=== PATIENT | female | born 1980 | race Caucasian/White ===

== ENCOUNTER 2023-11-26 19:38 | Outpatient (REF) | payer BC, SELFPAY ==
[2023-12-03 13:10] LABS: Age Gdln ACOG Testing Note (.); HPV Aptima Positive (Negative); IGP, Aptima HPV, rfx 16/18,45 Note (.)
== END 2023-11-26 19:39 | disposition home or self-care (01) ==
LOC: LAB 19:38
PROVIDERS: PCP Family Medicine; Visit Provider Physician Assistant
DX: Z01.419 Encounter for gynecological examination (general) (routine) without abnormal findings (principal)
CPT/HCPCS: 87624; 88175

== ENCOUNTER 2023-12-02 16:09 | Outpatient (OUT) | payer BC, SELFPAY ==
--- OUTSIDE RECORDS SUMMARY | 2023-12-02 16:21 | XMS_ITS | CCD ---
Author Organization [facility]iniSyma Care Team Providers Care Coffee 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 Name Role Phone ANNA, DR Effie GRACIA Admitting Unavailable KAMARIANOAN, DR Effie GRACIA Attending Unavailable KAFTAN, DR Effie GRACIA Primary Care Unavailable KAFTAN, DR Effie GRACIA Consulting Unavailable KARASIK, DR PATEL Admitting Unavailable KARASIK, DR PATEL Attending Unavailable REQUEST, DR HANKS LISTED Primary Care Unavaila ble KARASIK, DR PATEL Consulting Unavailable ROMERO, DR CHILEL Admitting Unavailable ROMERO, DR CHILEL Attending Unavailable REQUEST, DR HANKS LISTED Primary Care Unavaila ble ROMERO, DR CHILEL Consulting Unavailable Nitesh Hills DO Unavailable Nitesh Hills DO Primary Care Provider NIXON AMBRIZ Attending Unavailable NITESH HILLS Referring Unavailable DK, NIXON Huerta Attending Unavailable DK, NIXON Huerta Referring Unavailable DK, NIXON Huerta Attending Unavailable DK, NIXON Huerta Referring Unavailable NITESH HILLS Referring Unavailable DK, NIXON Huerta Attending Unavailable DK, NIXON Huerta Referring Unavailable KALPANA ISSA Attending Unavailable DK, NIXON Huerta Attending Unavailable DK, NIXON Huerta Referring Unavailable Medications Current Medications Medication Drug Class(es) Dates Sig (Normalized) Sig (Original) brexpiprazole 2 mg oral tablet (5 sources) Atypical Antipsychotic Start: 3 End: 4 take 1 tablet by mouth at bedtime Brexpiprazole (Rexulti) 2 MG tablet Indications: Bipolar 2 disorder (CMS/HCC) Take 1 tablet by mouth at bedtime. 30 tablet 5 2022 11/26/2023 Discontinued dextromethorphan hydrobromide 15 mg / guaiFENesin 400 mg / pseudoephedrine hydrochloride 60 mg oral tablet (1 source) alpha-Adrenergic Agonist, Uncompetitive W-jvooyd-E-asparta te Receptor Antagonist, Sigma-1 Agonist Start: 4 take 4 tablets by mouth every twenty-four hours Bnodozyyzjdpbmx-Dc-Oy aifenesin (Capmist Dm) 60-15-400 mg tablet Active 1 TAB PO EVERY 4-6 HOURS April 11, 2023 1:00am do not exceed 4 doses per 24 hrs fluticasone propionate 0.05 mg/actuat metered dose nasal spray (1 source) Corticosteroid Start: 4 take 1 spray(s) nasal route twice daily Fluticasone Propionate (Flonase Allergy Relief) 50 mcg/actuation spray,suspension Active 1 SPRAY INTRANASAL Twice daily April 11, 2023 1:00am administer 1 spray into each nostril methylPREDNISolone 4 mg oral tablet (1 source) Corticosteroid Start: 4 take 1 tablet by mouth once Methylprednisolone (Medrol (Ross)) 4 mg tablets,dose pack Active 0 PO per package directions May 15, 2023 12:00am PO PER PKG DIR for 6 days Completed/Discontinued Medications Medication Drug Class(es) Dates Sig (Normalized) Sig (Original) ARIPiprazole 5 mg oral tablet (2 sources) Atypical Antipsychotic Start: 06-29-2020 End: 04-11-2023 take 5 mg by mouth once daily Aripiprazole Discontinued 5 MG PO Daily June 29, 2020 12:00am April 11, 2023 4:51pm clonazePAM 0.5 mg oral tablet (2 sources) Benzodiazepine Start: 06-29-2020 End: 04-11-2023 take 0.5 mg by mouth twice daily Clonazepam Discontinued 0.5 MG PO Twice daily June 29, 2020 12:00am April 11, 2023 4:50pm phentermine hydrochloride 37.5 mg oral tablet (2 sources) Sympathomimetic Amine Anorectic Start: 06-29-2020 End: 04-11-2023 take 37.5 mg by mouth once daily Phentermine Discontinued 37.5 MG PO Daily June 29, 2020 12:00am April 11, 2023 4:50pm Problems Active Problems Problem Classification Problem Date Documented Date Episodic/Chronic Immunizations and screening for infectious disease (4 sources) Encounter for screening for human papillomavirus (HPV); Translations: [Contact with and (suspected) exposure to other viral communicable diseases] Onset: 09-23-2020 04-11-2023 Episodic Influenza (3 sources) Influenza due to Influenza B virus; Translations: [Influenza due to other identified influenza virus with other respiratory manifestations] 04-11-2023 Episodic Menstrual disorders (2 sources) Menorrhagia; Translations: [Excessive and frequent menstruation with regular cycle] 11-26-2023 Chronic Mood disorders (10 sources) Bipolar II disorder; Translations: [Bipolar II disorder] Onset: 05-18-2020 11-07-2022 Chronic Osteoarthritis (20 sources) Osteoarthritis of left hip joint; Translations: [Unilateral primary osteoarthritis, left hip] Onset: 12-21-2020 11-07-2022 Chronic Other connective tissue disease (5 sources) History of total hip arthroplasty; Translations: [Presence of right artificial hip joint] Onset: 11-07-2022 12-12-2022 Chronic Other connective tissue disease (2 sources) History of repair of hip joint; Translations: [Presence of right artificial hip joint] 11-26-2023 Chronic Other inflammatory condition of skin (1 source) Sunburn of first degree; Translations: [Sunburn] 05-15-2023 Episodic Other nervous system disorders (5 sources) Difficulty walking; Translations: [Difficulty in walking, not elsewhere classified] Onset: 01-30-2021 11-08-2022 Chronic Other nervous system disorders (5 sources) Walking disability; Translations: [Difficulty in walking, not elsewhere classified] Onset: 11-08-2022 11-08-2022 Chronic Other nutritional; endocrine; and metabolic disorders (5 sources) Obese class II; Translations: [Class 2 obesity] Onset: 01-03-2021 11-08-2022 Chronic Other screening for suspected conditions (not mental disorders or infectious disease) (2 sources) Patient encounter status; Translations: [Encounter for screening mammogram for malignant neoplasm of breast] 11-26-2023 Episodic Thyroid disorders (5 sources) Thyroid nodule; Translations: [Nontoxic single thyroid nodule] Onset: 11-07-2022 11-07-2022 Chronic Unclassified (3 sources) CONTACT W/AND (SUSP) EXPOS COVID-19; Translations: [CONTACT W/AND (SUSP) EXPOS COVID-19] Onset: 01-27-2021 Past or Other Problems Problem Classification Problem Date Documented Date Episodic/Chronic Other female genital disorders (4 sources) Other specified noninflammatory disorders of vagina; Translations: [OTH SPEC NONINFLAMMATORY D/O VAGINA] Onset: 08-19-2020 Episodic Other infections; including parasitic (4 sources) Trichomoniasis, unspecified; Translations: [TRICHOMONIASIS UNSPECIFIED] Onset: 09-14-2020 Episodic Other nervous system disorders (5 sources) Loss of taste; Translations: [Parageusia] Onset: 01-10-2021 11-08-2022 Episodic Residual codes; unclassified (5 sources) Insomnia; Translations: [Insomnia, unspecified] Onset: 11-07-2022 11-07-2022 Episodic Unclassified (1 source) CONTACT W/AND (SUSP) EXPOS COVID-19; Translations: [CONTACT W/AND (SUSP) EXPOS COVID-19] Onset: 01-18-2021 Results Test Name Value Interpretation Reference Range Facility XR Hip - right 3 [facility] Result: November 26, 2023 x-rays AP and lateral of the right hip demonstrate a right total hip replacement in good position alignment without signs of loosening fracture or failure. Impression: Stable appearance of right total hip replacement Nhan Ambriz D.O. [facility] Radiology Study observation (narrative) [facility] No Panel InformationOrdered By: Jody Joyner on 04-11-2023 COVID/Influenza Antigen (POC) [facility] Quick Strep (POC) [facility] BI MAMMOGRAM DIAGNOSTIC JENNIFER SYNTHESIS LEFTon 01-29-2023 BI MAMMOGRAM DIAGNOSTIC TOMOSYNTHESIS LEFT This is a summary report. The complete report is available in the patient's medical record. If you cannot access the medical record, please contact the sending organization for a detailed fax or copy. EXAMINATION: BI MAMMOGRAM DIAGNOSTIC TOMOSYNTHESIS LEFT CLINICAL HISTORY: abnormal mammo COMPARISON: Screening mammogram 01/14/2023. RESULT: 3-D tomosynthesis imaging of the bilateral breast(s) was performed. Density: Heterogeneously dense [3] The asymmetries within the medial and lateral left breast on the screening mammogram, are less apparent on the diagnostic views and appear to represent overlapping fibroglandular tissue. No suspicious findings. IMPRESSION: BIRADS 2 - Benign Recommended follow-up: Routine Screening Mamm Board Certified Radiologists. Accredited by the ACR and FDA. MAMMOGRAPHY IS VERY IMPORTANT TO YOUR HEALTH. THE [employer] GUIDELINES RECOMMEND THAT WOMEN 40 YEARS OF AGE AND OLDER SHOULD HAVE A MAMMOGRAM EVERY YEAR. A REMINDER LETTER WILL BE SENT AT THE APPROPRIATE TIME. THIS FACILITY UTILIZES A REMINDER SYSTEM TO ENSURE ALL PATIENTS RECEIVE REMINDER NOTIFICATIONS AT THE APPROPRIATE TIME BASED ON THE RECOMMENDATIONS OF THIS EXAM. THIS INCLUDES REMINDERS FOR ROUTINE SCREENING MAMMOGRAMS, DIAGNOSTIC MAMMOGRAMS IN WHICH THE PATIENT IS ASKED TO RETURN FOR ADDITIONAL VIEWS, OR OTHER BREAST IMAGING INTERVENTIONS WHEN APPROPRIATE. THE PATIENT WILL BE PLACED IN THE APPROPRIATE REMINDER SYSTEM INCLUDING A REMINDER AT THE APPROPRIATE TIME FOR ANY PENDING ADDITIONAL VIEWS. ELECTRONICALLY SIGNED BY: Kenan Alfonso MD Normal Not Available Comment on above: Order Comment: Full- field rolled CC 2D and 3D mammography (and possible ultrasound) of the left breast ? BI MAMMOGRAM SCREENING TOMOS YNTHESIS BILATERALon 01-14-2023 BI MAMMOGRAM SCREENING TOMOSYNTHESIS BILATERAL This is a summary report. The complete report is available in the patient's medical record. If you cannot access the medical record, please contact the sending organization for a detailed fax or copy. EXAM: BI MAMMOGRAM SCREENING TOMOSYNTHESIS BILATERAL DATE: 01/14/2023 9:34 AM CLINICAL HISTORY: screening. COMPARISONS: None available. TECHNIQUE: Routine full-field digital mammograms and 3D breast tomosynthesis of both breasts were obtained. FINDINGS: Both breasts are heterogeneously dense. Two 4 to 5 mm partially obscured asymmetries are noted within the medial and lateral left breast on the cc views, which are not confidently identified on the MLO's. Full-field rolled CC 2D and 3D mammography (and possible ultrasound) of the left breast are suggested. There are no suspicious microcalcifications, or areas of architectural distortion identified. IMPRESSION: BIRADS 0 - Need Additional Imaging Evaluation Follow-up: Additional Imaging Diagnostic Mammogram. Density: Heterogeneously dense [3]. Board Certified Radiologists. Accredited by the ACR and FDA. MAMMOGRAPHY IS VERY IMPORTANT TO YOUR HEALTH. THE CURRENT [employer] GUIDELINES RECOMMENDS ANNUAL MAMMOGRAPHY BEGINNING AT AGE 40. THIS FACILITY UTILIZES A REMINDER SYSTEM TO ENSURE ALL PATIENTS RECEIVE REMINDER NOTIFICATIONS AT THE APPROPRIATE TIME BASED ON THE RECOMMENDATIONS OF THIS EXAM. ELECTRONICALLY SIGNED BY: Frank Adams MD Abnormal Not Available ESTHER Antinuclear Antibodieson 03-02-2021 Antinuclear Abs, IFA Negative Normal . [facility] Comment on above: Order Comment: Healt hcare Worker?: N Result Comment: Nega tive <1:80 Borderline 1:80 Positive >1:80 ICAP nomenclature: AC-0 For more information about Hep-2 cell patterns use ANApatterns.org, the official website for the International Consensus on Antinuclear Antibody (ESTHER) Patterns (ICAP). Performed at: [place] [address] [employer] Teacher: Timoteo Devries PhD, Phone: [phone] Performed By: #### C [address] #### [address] CMV IgG Antibodyon 2 CMV IgG Antibody <0.60 Normal 0.00-0.59 [facility] Comment on above: Order Comment: Healt hcare Worker?: N Result Comment: Nega tive <0.60 Equivocal 0.60 - 0.69 Positive >0.69 Performed By: #### C [address] #### [address] CMV IgM Antibodyon 2 CMV IgM Antibody <30.0 Normal 0.0-29.9 [facility] Comment on above: Order Comment: Healt hcare Worker?: N Result Comment: Nega tive <30.0 Equivocal 30.0 - 34.9 Positive >34.9 A positive result is generally indicative of acute infection, reactivation or persistent IgM production. Performed at: [place] [address] [employer] Teacher: Timoteo Devries PhD, Phone: [phone] Performed By: #### C [address] #### [address] Comprehensive Metabolic Pane madison 03-02-2021 Albumin [Mass/Vol] 3.8 g/dL Normal 3.2-5.5 [facility] Comment on above: Order Comment: Reaso n for Exam Elevated liver enzymes Performed By: #### E BV VCAIGG, RFXHEPCINTERP, CMVIGM, CMVIGG, HEPACUTE, ESTHER, EBV VCAIGM, LC FERRITIN, MITOM2 #### [facility] , #### LIBIA, FE and TIBC, CMP #### [facility] [address] Albumin/Globulin [Mass ratio] 1.2 {ratio} Normal [facility] Comment on above: Order Comment: Reaso n for Exam Elevated liver enzymes Performed By: #### E BV VCAIGG, RFXHEPCINTERP, CMVIGM, CMVIGG, HEPACUTE, ESTHER, EBV VCAIGM, LC FERRITIN, MITOM2 #### [facility] , #### LIBIA, FE and TIBC, CMP #### [address] ALP [Catalytic activity/Vol] 88 U/L Normal 32-92 [facility] Comment on above: Order Comment: Reaso n for Exam Elevated liver enzymes Performed By: #### E BV VCAIGG, RFXHEPCINTERP, CMVIGM, CMVIGG, HEPACUTE, ESTHER, EBV VCAIGM, LC FERRITIN, MITOM2 #### [facility] , #### LIBIA, FE and TIBC, CMP #### [place] [address] [place] ALT [Catalytic activity/Vol] 54 U/L Normal 10-60 [facility] Comment on above: Order Comment: Reaso n for Exam Elevated liver enzymes Performed By: #### E BV VCAIGG, RFXHEPCINTERP, CMVIGM, CMVIGG, HEPACUTE, ESTHER, EBV VCAIGM, LC FERRITIN, MITOM2 #### [facility] , #### LIBIA, FE and TIBC, CMP #### [place] [address] [place] AST [Catalytic activity/Vol] 16 U/L Normal 10-42 [facility] Comment on above: Order Comment: Reaso n for Exam Elevated liver enzymes Performed By: #### E BV VCAIGG, RFXHEPCINTERP, CMVIGM, CMVIGG, HEPACUTE, ESTHER, EBV VCAIGM, LC FERRITIN, MITOM2 #### [facility] , #### LIBIA, FE and TIBC, CMP #### [facility] [address] Bilirubin [Mass/Vol] 0.9 mg/dL Normal 0.3-1.2 [facility] Comment on above: Order Comment: Reaso n for Exam Elevated liver enzymes Performed By: #### E BV VCAIGG, RFXHEPCINTERP, CMVIGM, CMVIGG, HEPACUTE, ESTHER, EBV VCAIGM, LC FERRITIN, MITOM2 #### [facility] , #### LIBIA, FE and TIBC, CMP #### [address] Calcium [Mass/Vol] 9.6 mg/dL Normal 8.2-10.2 [facility] Comment on above: Order Comment: Reaso n for Exam Elevated liver enzymes Performed By: #### E BV VCAIGG, RFXHEPCINTERP, CMVIGM, CMVIGG, HEPACUTE, ESTHER, EBV VCAIGM, LC FERRITIN, MITOM2 #### [facility] , #### LIBIA, FE and TIBC, CMP #### [place] [address] [place] Chloride [Moles/Vol] 104 mmol/L Normal 95-114 [facility] Comment on above: Order Comment: Reaso n for Exam Elevated liver enzymes Performed By: #### E BV VCAIGG, RFXHEPCINTERP, CMVIGM, CMVIGG, HEPACUTE, ESTHER, EBV VCAIGM, LC FERRITIN, MITOM2 #### [facility] , #### LIBIA, FE and TIBC, CMP #### [place] [address] [place] CO2 [Moles/Vol] 26.4 mmol/L Normal 22.0-30.0 [facility] Comment on above: Order Comment: Reaso n for Exam Elevated liver enzymes Performed By: #### E BV VCAIGG, RFXHEPCINTERP, CMVIGM, CMVIGG, HEPACUTE, ESTHER, EBV VCAIGM, LC FERRITIN, MITOM2 #### [facility] , #### LIBIA, FE and TIBC, CMP #### [address] Creatinine [Mass/Vol] 0.74 mg/dL Normal 0.44-1.03 [facility] Comment on above: Order Comment: Reaso n for Exam Elevated liver enzymes Performed By: #### E BV VCAIGG, RFXHEPCINTERP, CMVIGM, CMVIGG, HEPACUTE, ESTHER, EBV VCAIGM, LC FERRITIN, MITOM2 #### [facility] , #### LIBIA, FE and TIBC, CMP #### [address] Estimated GFR ( Erendira > 60 [facility] Comment on above: Order Comment: Reaso n for Exam Elevated liver enzymes Result Comment: GFR estimated reference range: According to KDOQI guidelines, <60 ml/min/1.73m2 is sufficient to diagnose a patient with chronic kidney disease. Performed By: #### E BV VCAIGG, RFXHEPCINTERP, CMVIGM, CMVIGG, HEPACUTE, ESTHER, EBV VCAIGM, LC FERRITIN, MITOM2 #### [facility] , #### LIBIA, FE and TIBC, CMP #### [address] Estimated GFR (Non- Am > 60 [facility] Comment on above: Order Comment: Reaso n for Exam Elevated liver enzymes Performed By: #### E BV VCAIGG, RFXHEPCINTERP, CMVIGM, CMVIGG, HEPACUTE, ESTHER, EBV VCAIGM, LC FERRITIN, MITOM2 #### [facility] , #### LIBIA, FE and TIBC, CMP #### [address] Globulin (S) [Mass/Vol] 3.3 g/dL Normal [facility] Comment on above: Order Comment: Reaso n for Exam Elevated liver enzymes Performed By: #### E BV VCAIGG, RFXHEPCINTERP, CMVIGM, CMVIGG, HEPACUTE, ESTHER, EBV VCAIGM, LC FERRITIN, MITOM2 #### [facility] , #### LIBIA, FE and TIBC, CMP #### [facility] [address] [place] [address] [place] Glucose [Mass/Vol] 91 mg/dL Normal 70-100 [facility] Comment on above: Order Comment: Reaso n for Exam Elevated liver enzymes Result Comment: [facility] Glucose Reference Range is dependent on time and content of last meal. Glucose of more than 200 mg/dL in a nonstressed, ambulatory subject supports the diagnosis of Diabetes Mellitus. ADA recommended reference range Performed By: #### E BV VCAIGG, RFXHEPCINTERP, CMVIGM, CMVIGG, HEPACUTE, ESTHER, EBV VCAIGM, LC FERRITIN, MITOM2 #### [facility] , #### LIBIA, FE and TIBC, CMP #### [facility] [address] [place] [address] [place] Potassium [Moles/Vol] 4.2 mmol/L Normal 3.5-5.1 [facility] Comment on above: Order Comment: Reaso n for Exam Elevated liver enzymes Performed By: #### E BV VCAIGG, RFXHEPCINTERP, CMVIGM, CMVIGG, HEPACUTE, ESTHER, EBV VCAIGM, LC FERRITIN, MITOM2 #### [facility] , #### LIBIA, FE and TIBC, CMP #### [facility] [address] [place] [address] [place] Protein [Mass/Vol] 7.1 g/dL Normal 6.1-7.9 [facility] Comment on above: Order Comment: Reaso n for Exam Elevated liver enzymes Performed By: #### E BV VCAIGG, RFXHEPCINTERP, CMVIGM, CMVIGG, HEPACUTE, ESTHER, EBV VCAIGM, LC FERRITIN, MITOM2 #### [facility] , #### LIBIA, FE and TIBC, CMP #### [facility] [address] Sodium [Moles/Vol] 139 mmol/L Normal 136-146 [facility] Comment on above: Order Comment: Reaso n for Exam Elevated liver enzymes Performed By: #### E BV VCAIGG, RFXHEPCINTERP, CMVIGM, CMVIGG, HEPACUTE, ESTHER, EBV VCAIGM, LC FERRITIN, MITOM2 #### [facility] , #### LIBIA, FE and TIBC, CMP #### [facility] [address] [place] [address] Urea nitrogen [Mass/Vol] 8 mg/dL Low 9- [facility] Comment on above: Order Comment: Reaso n for Exam Elevated liver enzymes Performed By: #### E BV VCAIGG, RFXHEPCINTERP, CMVIGM, CMVIGG, HEPACUTE, ESTHER, EBV VCAIGM, LC FERRITIN, MITOM2 #### [facility] , #### LIBIA, FE and TIBC, CMP #### [facility] [address] [place] [address] EBV Ab VCA, IgGon 03-02-2021 EBV Ab VCA, IgG 75.3 High 0.0-17.9 [facility] Comment on above: Order Comment: Healt hcare Worker?: N Result Comment: Nega tive <18.0 Equivocal 18.0 - 21.9 Positive >21.9 Performed By: #### C OVID-19 [facility] #### [facility] [address] [place] [address] [place] EBV Ab VCA, IgMon 03-02-2021 EBV Ab VCA, IgM <36.0 Normal 0.0-35.9 [facility] Comment on above: Order Comment: Healt hcare Worker?: N Result Comment: Nega tive <36.0 Equivocal 36.0 - 43.9 Positive >43.9 Performed at: - [facility] [id number] [employer] Teacher: Timoteo Devries PhD, Phone: [phone] Performed By: #### C OVID-19 [facility] #### [address] Ferritinon 03-02-2021 Ferritin Sent to Ref Lab Low 11-306.8 [facility] Comment on above: Order Comment: Reaso n for Exam Elevated liver enzymes Result Comment: PERF ORMED BY: [place] [address] PATHOLOGIST SENIOR SALES MANAGER DARIA HELMS M.D. Performed By: #### E BV VCAIGG, RFXHEPCINTERP, CMVIGM, CMVIGG, HEPACUTE, ESTHER, EBV VCAIGM, LC FERRITIN, MITOM2 #### [facility] , #### LIBIA, FE and TIBC, CMP #### [facility] [address] [place] [address] Ferritin ([facility])on 022 Ferritin [Mass/Vol] 126 ng/mL Normal 15-150 [facility] Comment on above: Result Comment: Perf ormed at: - [facility] [address] [id number] [employer] Teacher: Timoteo Devries PhD, Phone: [phone] PERFORMED BY: [place] [address] PATHOLOGIST SENIOR SALES MANAGER DARIA HELMS M.D. Performed By: #### E BV VCAIGG, RFXHEPCINTERP, CMVIGM, CMVIGG, HEPACUTE, ESTHER, EBV VCAIGM, LC FERRITIN, MITOM2 #### [facility] , #### LIBIA, FE and TIBC, CMP #### [facility] [address] [place] [address] Hepatitis Acute Panelon HBsAg Screen Negative Normal Negative [facility] Comment on above: Order Comment: Reaso n for Exam Elevated liver enzymes Performed By: #### E BV VCAIGG, RFXHEPCINTERP, CMVIGM, CMVIGG, HEPACUTE, ESTHER, EBV VCAIGM, LC FERRITIN, MITOM2 #### [facility] , #### LIBIA, FE and TIBC, CMP #### [facility] [address] Hepatitis A Antibody IgM Negative Normal Negative [facility] Comment on above: Order Comment: Reaso n for Exam Elevated liver enzymes Performed By: #### E BV VCAIGG, RFXHEPCINTERP, CMVIGM, CMVIGG, HEPACUTE, ESTHER, EBV VCAIGM, LC FERRITIN, MITOM2 #### [facility] , #### LIBIA, FE and TIBC, CMP #### [facility] [address] [place] [address] Hepatitis B Core Antibody IgM Negative Normal Negative [facility] Comment on above: Order Comment: Reaso n for Exam Elevated liver enzymes Performed By: #### E BV VCAIGG, RFXHEPCINTERP, CMVIGM, CMVIGG, HEPACUTE, ESTHER, EBV VCAIGM, LC FERRITIN, MITOM2 #### [facility] , #### LIBIA, FE and TIBC, CMP #### [facility] [address] [place] [address] Hepatitis C Virus Antibody 0.1 Normal 0.0-0.9 [facility] Comment on above: Order Comment: Reaso n for Exam Elevated liver enzymes Performed By: #### E BV VCAIGG, RFXHEPCINTERP, CMVIGM, CMVIGG, HEPACUTE, ESTHER, EBV VCAIGM, LC FERRITIN, MITOM2 #### [facility] , #### LIBIA, FE and TIBC, CMP #### [facility] [address] [place] [address] Interpretation Hepatitis Con 03-02-2021 Interpretation Hepatitis C Normal . [facility] Comment on above: Order Comment: Healt hcare Worker?: N Result Comment: Nega tive Not infected with HCV, unless recent infection is suspected or other evidence exists to indicate HCV infection. Performed at: - [facility] [id number] [employer] Teacher: Timoteo Devries PhD, Phone: [phone] PERFORMED BY: [place] [address] PATHOLOGIST SENIOR SALES MANAGER DARIA HELMS M.D. Performed By: #### C OVID-19 [facility] #### [address] Iron and TIBC Profileon 01-0 6-2021 % Iron Saturation 19.0 % Low 20-50 [facility] Comment on above: Order Comment: Reaso n for Exam Elevated liver enzymes Performed By: #### E BV VCAIGG, RFXHEPCINTERP, CMVIGM, CMVIGG, HEPACUTE, ESTHER, EBV VCAIGM, LC FERRITIN, MITOM2 #### [facility] , #### LIBIA, FE and TIBC, CMP #### [address] Iron [Mass/Vol] 74 ug/dL Normal 40-150 [facility] Comment on above: Order Comment: Reaso n for Exam Elevated liver enzymes Performed By: #### E BV VCAIGG, RFXHEPCINTERP, CMVIGM, CMVIGG, HEPACUTE, ESTHER, EBV VCAIGM, LC FERRITIN, MITOM2 #### [facility] , #### LIBIA, FE and TIBC, CMP #### [facility] [address] [place] [address] Total Iron Binding Capacity 384 ug/dL Normal 255-450 [facility] Comment on above: Order Comment: Reaso n for Exam Elevated liver enzymes Performed By: #### E BV VCAIGG, RFXHEPCINTERP, CMVIGM, CMVIGG, HEPACUTE, ESTHER, EBV VCAIGM, LC FERRITIN, MITOM2 #### [facility] , #### LIBIA, FE and TIBC, CMP #### [facility] [address] [place] [address] Transferrin [Mass/Vol] 274 mg/dL Normal 180-380 [facility] Comment on above: Order Comment: Reaso n for Exam Elevated liver enzymes Performed By: #### E BV VCAIGG, RFXHEPCINTERP, CMVIGM, CMVIGG, HEPACUTE, ESTHER, EBV VCAIGM, LC FERRITIN, MITOM2 #### [facility] , #### LIBIA, FE and TIBC, CMP #### [facility] [facility] [address] Mitochondrial (M2) Antibodyo n 03-02-2021 Mitochondrial (M2) Antibody <20.0 Normal 0.0-20.0 [facility] Comment on above: Order Comment: Healt hcare Worker?: N Result Comment: Nega tive 0.0 - 20.0 Equivocal 20.1 - 24.9 Positive >24.9 Mitochondrial (M2) Antibodies are found in 90-96% of patients with primary biliary cirrhosis. Performed at: - [facility] [id number] [employer] Machines Teacher: Timoteo Devries PhD, Phone: [phone] Performed By: #### C OVID-19 [facility] #### [facility] [address] US Liveron 03-02-2021 US Liver CLINICAL HISTORY: 40-year-old female with elevated liver function tests.. COMPARISON: None. TECHNIQUE: Biplanar images right upper quadrant were obtained. FINDINGS: Gallbladder is visualized and physiologically distendedNo sign of cholelithiasis or sludge within the gallbladder. No evidence of gallbladder wall thickening. Common bile duct measures 0.39 cm. Liver is normal in size and echogenicity.No focal liver lesion. Liver measures 14.8 cm in length. Increased echogenicity of pancreas parenchyma, suspected fatty infiltration. No focal pancreatic lesion visualized. Tail of pancreas is not well visualized. No free fluid in Morison's pouch. Right kidney measures 9.7 x 4.5 x 3.9. No evidence of hydronephrosis. IMPRESSION: NO EVIDENCE OF CHOLELITHIASIS OR BILE DUCT DILATATION. NO DEFINITE LIVER ABNORMALITY. PANCREAS IS HYPERECHOIC, SUSPECTED FATTY INFILTRATION OF PANCREAS. Report reported and signed by Teresa Blackmon on 03/02/2021 1005 Normal [facility] Complete Blood Count with Au to Diffon 02-21-2021 Basophils (Bld) [#/Vol] 0.05 10*3/uL Normal 0.00-0.20 [facility] Specialist Comment on above: Performed By: #### C BCAD, CMP, TSH reflex FT4 #### [facility] [address] [place], [place] [id number] Basophils/100 WBC (Bld) 0.5 % Normal [facility] Comment on above: Performed By: #### C BCAD, CMP, TSH reflex FT4 #### [facility] [address] [place], [place] [id number] Eosinophils (Bld) [#/Vol] 0.24 10*3/uL Normal 0.02-0.50 [facility] Comment on above: Performed By: #### C BCAD, CMP, TSH reflex FT4 #### [facility] [address] [place], [place] [id number] Eosinophils/100 WBC (Bld) 2.2 % Normal [facility] Comment on above: Performed By: #### C BCAD, CMP, TSH reflex FT4 #### [facility] [address] [place], [place] [id number] Erythrocyte distribution width (RBC) [Ratio] 14.2 % Normal 11.0-15.0 [facility] Comment on above: Performed By: #### C BCAD, CMP, TSH reflex FT4 #### [facility] [address] [place], [place] [id number] Hematocrit (Bld) [Volume fraction] 44.9 % Normal 35.0-47.0 [facility] Comment on above: Performed By: #### C BCAD, CMP, TSH reflex FT4 #### [facility] [address] [place], [place] [id number] Hemoglobin (Bld) [Mass/Vol] 13.2 g/dL Normal 11.6-15.5 [facility] Comment on above: Performed By: #### C BCAD, CMP, TSH reflex FT4 #### [facility] [address] [place], [place] [id number] Lymphocytes (Bld) [#/Vol] 2.0 10*3/uL Normal 0.9-3.9 [facility] Comment on above: Performed By: #### C BCAD, CMP, TSH reflex FT4 #### [facility] [address] [place], [place] [id number] Lymphocytes/100 WBC (Bld) 18.3 % Normal [facility] Specialist Comment on above: Performed By: #### C BCAD, CMP, TSH reflex FT4 #### [facility] [address] [place], [place] [id number] MCH (RBC) [Entitic mass] 29.5 pg Normal 27.0-33.0 [facility] Specialist Comment on above: Performed By: #### C BCAD, CMP, TSH reflex FT4 #### [facility] [address] [place], [place] [id number] MCHC (RBC) [Mass/Vol] 29.4 g/dL Low 32.0-36.0 [facility] Comment on above: Performed By: #### C BCAD, CMP, TSH reflex FT4 #### [facility] [address] [place], [place] [id number] MCV (RBC) [Entitic vol] 100 fL Normal 80-100 [facility] Specialist Comment on above: Performed By: #### C BCAD, CMP, TSH reflex FT4 #### [facility] [address] [place], [place] [id number] Monocytes (Bld) [#/Vol] 0.6 10*3/uL Normal 0.2-0.9 [facility] Special[facility] Comment on above: Performed By: #### C BCAD, CMP, TSH reflex FT4 #### [facility] [address] [place], [place] [id number] Monocytes/100 WBC (Bld) 5.7 % Normal [facility] Specialist Comment on above: Performed By: #### C BCAD, CMP, TSH reflex FT4 #### [facility] [address] [place], [place] [id number] Neutrophils (Bld) [#/Vol] 8.0 10*3/uL High 1.5-7.8 [facility] Special[facility] Comment on above: Performed By: #### C BCAD, CMP, TSH reflex FT4 #### [facility] [address] [place], [place] [id number] Neutrophils/100 WBC (Bld) 72.9 % Normal [facility] Comment on above: Performed By: #### C BCAD, CMP, TSH reflex FT4 #### [facility] [address] [place], [place] [id number] Platelet mean volume (Bld) [Entitic vol] 12.80 fL High 7.50-12.50 [facility] Comment on above: Performed By: #### C BCAD, CMP, TSH reflex FT4 #### [facility] [address] [place], [place] [id number] Platelets (Bld) [#/Vol] 376 10*3/uL Normal 140-400 [facility] Comment on above: Performed By: #### C BCAD, CMP, TSH reflex FT4 #### [facility] [address] [place], [place] [id number] RBC (Bld) [#/Vol] 4.47 10*6/uL Normal 3.90-5.20 [facility] Comment on above: Performed By: #### C BCAD, CMP, TSH reflex FT4 #### [facility] [address] [place], [place] [id number] RDW-SD 52.3 fL High 37.0-50.0 [facility] Comment on above: Performed By: #### C BCAD, CMP, TSH reflex FT4 #### [facility] [address] [place], [place] [id number] WBC (Bld) [#/Vol] 11.0 10*3/uL Normal 3.8-11.0 [facility] Comment on above: Performed By: #### C BCAD, CMP, TSH reflex FT4 #### [facility] [address] [place], [place] [id number] [facility] 02-21-2021 Albumin [Mass/Vol] 4.4 g/dL Normal 3.6-5.1 [facility] Comment on above: Performed By: #### C BCAD, CMP, TSH reflex FT4 #### [facility] [address] [place], [place] [id number] Albumin/Globulin [Mass ratio] 1.3 {ratio} Normal 1.0-2.5 [facility] Specialist Comment on above: Performed By: #### C BCAD, CMP, TSH reflex FT4 #### [facility] [address] [place], [place] [id number] ALP [Catalytic activity/Vol] 193 U/L High 35-119 [facility] Comment on above: Performed By: #### C BCAD, CMP, TSH reflex FT4 #### [facility] [address] [place], [place] [id number] ALT [Catalytic activity/Vol] 756 U/L High 6-33 [facility] Comment on above: Result Comment: 01/25 Female reference range changed. Performed By: #### C BCAD, CMP, TSH reflex FT4 #### [facility] [address] [place], [place] [id number] Anion gap [Moles/Vol] 20 mmol/L Normal 12-20 [facility] Comment on above: Result Comment: Effe ctive 03/02/2019 reference range changed. Performed By: #### C BCAD, CMP, TSH reflex FT4 #### [facility] [address] [place], [place] [id number] AST [Catalytic activity/Vol] 174 U/L High 9-34 [facility] Comment on above: Result Comment: Repe ated to verify. Performed By: #### C BCAD, CMP, TSH reflex FT4 #### [facility] [address] [facility] [place] [id number] Bilirubin [Mass/Vol] 0.31 mg/dL Normal 0.30-1.20 [facility] Comment on above: Performed By: #### C BCAD, CMP, TSH reflex FT4 #### [facility] [address] [facility] [place] [id number] BUN/CREA 15 Ratio Normal 6-22 [facility] Comment on above: Performed By: #### C BCAD, CMP, TSH reflex FT4 #### [facility] [address] [place], [place] [id number] Calcium [Mass/Vol] 10.4 mg/dL High 8.6-10.2 [facility] Comment on above: Performed By: #### C BCAD, CMP, TSH reflex FT4 #### [facility] [address] [place], [place] [id number] Chloride [Moles/Vol] 103 mmol/L Normal 98-107 [facility] Comment on above: Performed By: #### C BCAD, CMP, TSH reflex FT4 #### [facility] [address] [place], [place] [id number] CO2 [Moles/Vol] 23 mmol/L Normal 20-31 [facility] Comment on above: Performed By: #### C BCAD, CMP, TSH reflex FT4 #### [facility] [address] [place], [place] [id number] Creatinine [Mass/Vol] 0.7 mg/dL Normal 0.6-1.4 [facility] Comment on above: Performed By: #### C BCAD, CMP, TSH reflex FT4 #### [facility] [address] [place], [place] [id number] eGFRAA 112 mL/min/1.73m2 Normal >60 [facility] Comment on above: Performed By: #### C BCAD, CMP, TSH reflex FT4 #### [facility] [address] [place], [place] [id number] eGFRNAA 92 mL/min/1.73m2 Normal >60 [facility] Comment on above: Performed By: #### C BCAD, CMP, TSH reflex FT4 #### [facility] [address] [place], [place] [id number] Globulin (S) [Mass/Vol] 3.5 g/dL Normal 1.9-3.7 [facility] Comment on above: Performed By: #### C BCAD, CMP, TSH reflex FT4 #### [facility] [address] [place], [place] [id number] Glucose [Mass/Vol] 100 mg/dL High 65-99 [facility] Comment on above: Result Comment: For FASTING Glucose --- ADA reference ranges: Normal 65-99 mg/dl Prediabetes 100-125 Diabetes >/= 126 Performed By: #### C BCAD, CMP, TSH reflex FT4 #### [facility] [address] [place], [place] [id number] Potassium [Moles/Vol] 4.1 mmol/L Normal 3.5-5.5 [facility] Comment on above: Performed By: #### C BCAD, CMP, TSH reflex FT4 #### [facility] [address] [place], [place] [id number] Protein [Mass/Vol] 7.9 g/dL Normal 6.1-8.1 [facility] Specialist Comment on above: Performed By: #### C BCAD, CMP, TSH reflex FT4 #### [facility] [address] [place], [place] [id number] Sodium [Moles/Vol] 141 mmol/L Normal 135-146 [facility] Specialist Comment on above: Performed By: #### C BCAD, CMP, TSH reflex FT4 #### [facility] [address] [place], [place] [id number] Urea nitrogen [Mass/Vol] 11 mg/dL Normal 7-25 [facility] Specialist Comment on above: Performed By: #### C BCAD, CMP, TSH reflex FT4 #### [facility] [address] [place], [place] [id number] TSH w/ Reflex to Free T4on 04-24-2020 TSH 1.070 uIU/mL Normal 0.400-4.500 [facility] Comment on above: Performed By: #### C BCAD, CMP, TSH reflex FT4 #### [facility] [address] [place], [place] [id number] US Thyroidon 02-21-2021 US Thyroid CLINICAL HISTORY: Abnormal CT. COMPARISON: None available. TECHNIQUE: Ultrasound of the thyroid was performed with a regional survey. Reference: ACR Thyroid, Imaging Recording and Data System (TI-RADS): White paper of the ACR TI-RADS committee. Journal of the [place] [employer] of [employer]: Volume 14, issue 5, July 11 pages 587-595. FINDINGS: The thyroid gland is normal in size and echogenicity, with expected vascularity. An approximately 6.6 x 6.6 x 4.5 mm TR 3 solid predominantly hyperechoic wider than tall smoothly marginated nodule is noted within the right lobe near the isthmus without echogenic foci (TR3). A nearly cystic TR1 nodule is noted within the inferior left thyroid lobe measuring approximately 1.2 x 1.1 x 0.9 cm. No FNA or ultrasound follow-up is suggested. The left lobe measures approximately 4.8 x 1.6 x 1.6 cm, for a volume of approximately 6.5 mL. The right thyroid lobe measures approximately 4.9 x 1.7 x 1.6 cm, for a volume of approximately 7.0 mL. The isthmus measures approximately 1-2 mm in thickness. IMPRESSION: APPROXIMATELY 6.6 MM TR3 RIGHT THYROID LOBE NODULE AND 1.2 CM TR1 LEFT THYROID CYST. NO FNA OR ULTRASOUND FOLLOW-UP IS SUGGESTED. Report reported and signed by Frank Adams on 02/22/2021 0933 Normal [facility] SARS-CoV-2 (COVID-19) RNA GILLES+probe Ql (Unsp spec) Not detected Normal NOT DETECTED [facility] Comment on above: Result Comment: This test is not yet approved or cleared by the [place] FDA. When there are no FDA-approved or cleared tests available, and other criteria are met, FDA can make tests available under an emergency access mechanism called an Emergency Use Authorization (EUA). The EUA for this test is supported by the [place] of Health and Human Service's (HHS's) declaration that circumstances exist to justify the emergency use of in vitro diagnostics for the detection and/or diagnosis of the virus that causes COVID-19. This EUA will remain in effect (meaning this test can be used) for the duration of the COVID-19 declaration justifying emergency of IVDs, unless it is terminated or revoked by FDA (after which the test may no longer be used). When diagnostic testing is negative, the possibility of a false negative should be considered in the context of a patient's recent exposures and the presence of clinical signs and symptoms consistent with SARS-CoV-2. Performed By: #### C VDTB #### [facility] [address] [place] [address] Dr. Shelton Brewster COVID-19 [facility] 01-11-20 21 SARS-CoV-2 (COVID-19) RNA GILLES+probe Ql (Unsp spec) Detected Critically abnormal Not Detected [facility] Comment on above: Order Comment: Reaso n for Exam Loss of taste Healthcare Worker?: N Result Comment: Sulema ents who have a positive COVID-19 test result may now have treatment options. Treatment options are available for patients with mild to moderate symptoms and for hospitalized patients. Visit our website at [email or web address] for resources and information. This nucleic acid amplification test was developed and its performance characteristics determined by [employer]. Nucleic acid amplification tests include RT- PCR and TMA. This test has not been FDA cleared or approved. This test has been authorized by FDA under an Emergency Use Authorization (EUA). This test is only authorized for the duration of time the declaration that circumstances exist justifying the authorization of the emergency use of in vitro diagnostic tests for detection of SARS-CoV-2 virus and/or diagnosis of COVID-19 infection under section 564(b)(1) of the Act, 21 U.S.C. 360bbb-3(b) (1), unless the authorization is terminated or revoked sooner. When diagnostic testing is negative, the possibility of a false negative result should be considered in the context of a patient's recent exposures and the presence of clinical signs and symptoms consistent with COVID-19. An individual without symptoms of COVID-19 and who is not shedding SARS-CoV-2 virus would expect to have a negative (not detected) result in this assay. PERFORMED BY: [facility] [address] [place] [address] PATHOLOGIST SENIOR SALES MANAGER DARIA HELMS M.D. Performed By: #### C ORONAVIRUS #### [facility] , PAP ACOG PANEL 2: 30 to 65on 09-20-2020 . . Normal [facility] Comment on above: Result Comment: Perf ormed at: WB Performed By: #### 4 [id number] #### [facility] [address] [place], [place] [id number] Navi Vega Age Gdln ACOG Testing 30-65 Normal [facility] Comment on above: Performed By: #### 4 [id number] #### [facility] [address] [place] [id number] Navi Vega DIAGNOSIS: Comment Normal [facility] Comment on above: Result Comment: NEGA TIVE FOR INTRAEPITHELIAL LESION OR MALIGNANCY. Performed at: WB Performed By: #### 4 [id number] #### [facility] [address] [place] [address] Navi Vega HPV Aptima Positive Abnormal Negative [facility] Comment on above: Result Comment: This nucleic acid amplification test detects fourteen high-risk HPV types (16,18,31,33,35,39,45,51,52,56,58,59,66,68) without differentiation. Performed at: =G Performed By: #### 4 [id number] #### [facility] [address] [place] [address] Navi Silvia HPV Genotype 16 Negative Normal Negative [facility] Comment on above: Result Comment: Perf ormed at: =G Performed By: #### 4 [id number] #### [facility] [address] [place] [address] Navi Vega HPV Genotype 18,45 Negative Normal Negative [facility] Comment on above: Result Comment: Perf ormed at: =G Performed By: #### 4 [id number] #### [facility] [address] [place] [address] Navi Vega Methodology: CTIM Normal [facility] Comment on above: Result Comment: The Thin Prep(R) Circuit Walker was unable to read this specimen. Therefore a manual review was performed. Performed at: WB Performed By: #### 4 [id number] #### [facility] [address] [place] [address] Navi Silvia Note: Comment Normal [facility] Comment on above: Result Comment: The Pap smear is a screening test designed to aid in the detection of premalignant and malignant conditions of the uterine cervix. It is not a diagnostic procedure and should not be used as the sole means of detecting cervical cancer. Both false-positive and false-negative reports do occur. . Performed at: WB Performed By: #### 4 [id number] #### [facility] [address] [place] [address] Navi Vega Performed by: Comment Normal [facility] Comment on above: Result Comment: Brid get Cramer, Customer Manager (ASCP) Performed at: WB Performed By: #### 4 [id number] #### [facility] [address] [place] [address] Navi Vega Specimen adequacy: Comment Normal [facility] Comment on above: Result Comment: Sati sfactory for evaluation. Endocervical and/or squamous metaplastic cells (endocervical component) are present. Performed at: WB Performed By: #### 4 [id number] #### [facility] [address] [place] [address] Navi Vega VAGINITIS/VAGINOSIS DNA PROB Jesse 09-16-2020 Kathy species Negative Normal Negative [facility] Comment on above: Performed By: #### V AGINT #### [facility] [address] [place] [address] Navi Silvia Gardnerella vaginalis Positive Abnormal Negative [facility] Comment on above: Performed By: #### V AGINT #### [facility] [address] [place] [address] Navi Silvia Trichomonas vaginalis Negative Normal Negative [facility] Comment on above: Performed By: #### V AGINT #### [facility] [address] [place] [address] Navi Vega CHLAMYDIA/GONOCOCCUS GILLES (SW AB/URINE/PAPon 08-22-2020 Chlamydia trachomatis, GILLES Negative Normal Negative [facility] Comment on above: Performed By: #### C T/NGNA #### [facility] [address] [place] [address] Nvai Silvia Neisseria gonorrhoeae, GILLES Negative Normal Negative [facility] Comment on above: Performed By: #### C T/NGNA #### [facility] [address] [place] [address] Navi Silvia VAGINITIS/VAGINOSIS DNA PROB Jesse 08-21-2020 Kathy species Negative Normal Negative [facility] Comment on above: Performed By: #### V AGINT #### [facility] [address] [place] [address] Navi Silvia Gardnerella vaginalis Negative Normal Negative [facility] Comment on above: Performed By: #### V AGINT #### [facility] [address] [place] [address] Navi Vega Trichomonas vaginalis Positive Abnormal Negative [facility] Comment on above: Performed By: #### V AGINT #### [facility] [address] [place] [address] Navi Vega HCG,Urineon 06-29-2020 Beta HCG ( test) Ql (U) Negative Normal [facility] Comment on above: Result Comment: PERF ORMED BY: [place] [address] PATHOLOGIST SENIOR SALES MANAGER DARIA HELMS M.D. Performed By: #### U HCG #### [address] 06-29-2020 L Specimen: [id number] Received: 06/29/20 Status: DORITA Hickman Num: [id number] Spec Type: Surgical Subm Dr: Jayson Benson MD Tissues: A Varicose Vein (L LEG VARICOSE VEINS) Procedures: HE Stain, Gross/Micro L3 Patient Age/Sex Location Account Attending Physician Daysi Medina 39/F [place] [id number] Jayson Benson MD SPEC NUM: [id number] RECD: 06/29/20 STATUS: DORITA HICKMAN NUM: [id number] BENJAMÍN: 06/29/20- [facility] DR: Jayson Benson MD ENTERED: 06/29/[address] [facility] [address]: EMMANUEL TYPE: Surgical DEPT: S ENTERED BY: [id number] RECV BY: [id number] ORDERED: HE Stain, Gross/Micro L3 ORDERED: HE Stain, Gross/Micro L3 Pathological Diagnosis Varicose veins, left leg, phlebectomy: - Consistent with varicose veins Clinical Information Phlebectomy Gross Description Received in formalin labeled with the patient's name, number and varicose veins is a 3.5 x 3.1 x 1 cm aggregate of multiple stewart-pink cylindrical tissue fragments. [employer] sections are submitted in one cassette labeled A1. (SM/JS) Microscopic Description One glass slide with H E stained material has been examined. The microscopic findings support the above pathologic diagnosis. [id number] Specimen: [id number] Received: 06/29/20 Status: DORITA Hickman Num: [id number] Spec Type: Surgical Subm Dr: Jayson Benson MD Tissues: A Varicose Vein (L LEG VARICOSE VEINS) Procedures: HE Stain, Gross/Micro L3 Patient: Daysi Medina [id number] (Continued) Signed (signature on file) Daria Helms MD 06/30/20 1419 Normal [facility] SARS-CoV-2 (COVID-19) RNA GILLES+probe Ql (Unsp spec) Negative Normal Negative [facility] Comment on above: Order Comment: Healt hcare Worker?: N Result Comment: Test ing for SARS-CoV-2 by RT-PCR This test was developed and its performance characteristics determined by [facility] and validated at the [facility]. This test has not been FDA cleared or approved. This test has been authorized by FDA under an Emergency Use Authorization (EUA). This test has been validated in accordance with the FDA's Guidance Document (Policy for Diagnostics Testing in Laboratories Certified to Perform High Complexity Testing under CLIA prior to Emergency Use Authorization for Coronavirus Disease-2019 during the Public Health Emergency) issued on May 28, 2019. This test is only authorized for the duration of time the declaration that circumstances exist justifying the authorization of the emergency use of in vitro diagnostic tests for detection of SARS-CoV-2 virus and/or diagnosis of COVID-19 infection under section 564(b)(1) of the Act, 21 U.S.C. 360bbb-3(b)(1), unless the authorization is terminated or revoked sooner. PERFORMED BY: [place] [address] PATHOLOGIST SENIOR SALES MANAGER DARIA HELMS M.D. Performed By: #### C OVID-19 [facility] #### [address] US venous duplex LE BIon US venous duplex LE BI [facility] [place] [address] [place] [address] Ultrasound Report Signed Patient: Daysi Medina MR#: [id number] [birth year] : 1980 Acct:[id number] Age/Sex: 39 / F ADM Date: 06/14/20 Loc: [facility] Room: Type: [facility] Attending Dr: Jayson Benson MD Ordering Provider: Jayson Benson MD Date of Service: 06/14/20 US/US venous duplex LE BI: [id number] Copies to: Jayson Benson MD Bilateral lower extremity full functional venous duplex examination Indication for study: Painful varicose vein PROCEDURE: Color-flow duplex scanning of B-mode imaging R used to interrogate the deep and superficial venous system of both lower extremities. There is no evidence of deep vein thrombosis in either leg. Bilaterally the common femoral vein, femoral vein, and popliteal vein show good compressibility, color-flow, and augmentation. In the patient's right leg there is greater than 5 seconds of reflux at the saphenofemoral junction emptying into the greater saphenous vein. There is mild unsustained reflux at the junction of the lesser saphenous vein to the popliteal vein. The right greater saphenous vein is mildly dilated at 6 mm below the saphenofemoral junction and remains 5 mm to the mid thigh after which it gives rise to multiple varicosities. These range in size from 4 to 5 mm. The vein is small beyond that point until varicosities rejoin just below the knee were becomes 7 mm. Mild route driver incompetence is noted but none of them are greater than 3 mm. In the patient's left lower extremity there is severe venous valvular incompetence. There is greater than 5 seconds of reflux at the saphenofemoral junction emptying into the greater saphenous vein. There is greater than 5 cm of reflux at the lesser saphenous junction emptying into the lesser saphenous vein from the popliteal vein. The left greater saphenous vein is markedly dilated at 11 mm below the saphenofemoral junction and remains dilated down to the mid calf where it still 7 mm. Multiple varicosities are noted which are 6 to 7 mm in diameter. The lesser saphenous vein is normal in size although varicosities are noted regressed from the vein and around 4 mm in size. US/US venous duplex LE BI IMPRESSION: No evidence for deep vein thrombosis in either leg. There is severe saphenofemoral incompetence of the right saphenofemoral junction for greater than 5 seconds but the vein is mildly dilated. There is severe saphenofemoral femoral incompetence in the left greater saphenous vein with massive dilation of the left greater saphenous vein. There is also severe saphenofemoral incompetence at the juncture of the left lesser saphenous vein to the popliteal vein. Multiple varicosities are noted bilaterally because of this incompetence particularly large in the left side at between 6 and 7 mm diameter. Impression dictated by: Jayson Benson M.D.06/20/2020 8:49 AM Dictation Location: [facility] Tech: Angelina Gorge Transcribed By: MADY 06/20/20848 Dictated By: Jayson Benson MD 06/20/20 0846 Signed By: 06/20/2049 [facility] Vital Signs Date Time Vital Sign Value Performing Clinician Facility 10-01-2024 09:18-0400 Body height 167.6 cm Kalpana FLORIAN Work Phone: [facility] 11-26-2023 09:18-0400 Body mass index (BMI) [Ratio] 35.83 kg/m2 Kalpana FLORIAN Work Phone: [facility] 11-26-2023 09:18-0400 Body weight 100.7 kg Kalpana FLORIAN Work Phone: [facility] 11-26-2023 09:18-0400 Diastolic blood pressure 80 mm[Hg] Kalpana FLORIAN Work Phone: [facility] 11-26-2023 09:18-0400 Systolic blood pressure 124 mm[Hg] Kalpana FLORIAN Work Phone: [facility] 05-15-2023 10:10-0400 Body height 165.1 cm [facility] 05-15-2023 10:10-0400 Body mass index (BMI) [Ratio] 37 kg/m2 [facility] 05-15-2023 10:10-0400 Body temperature 98.4 [degF] [facility] 05-15-2023 10:10-0400 Body weight 100.81 kg [facility] 05-15-2023 10:10-0400 Diastolic blood pressure 90 mm[Hg] [facility] 05-15-2023 10:10-0400 Heart rate 90 /min [facility] 05-15-2023 10:10-0400 Respiratory rate 18 /min [facility] 05-15-2023 10:10-0400 SaO2% (BldA) [Mass fraction] 97 % [facility] 05-15-2023 10:10-0400 Systolic blood pressure 132 mm[Hg] [facility] 04-11-2023 15:47-0500 Body height 165.1 cm [facility] 04-11-2023 15:47-0500 Body mass index (BMI) [Ratio] 36.6 kg/m2 [facility] 04-11-2023 15:47-0500 Body temperature 99.4 [degF] [facility] 04-11-2023 15:47-0500 Body weight 99.79 kg [facility] 04-11-2023 15:47-0500 Heart rate 90 /min [facility] 04-11-2023 15:47-0500 Respiratory rate 16 /min [facility] 04-11-2023 15:47-0500 SaO2% (BldA) [Mass fraction] 98 % [facility] Encounters Encounter Date Encounter Type Care Provider Facility Start: 11-26-2023 End: 11-26-2023 Office outpatient visit 10 minutes Nixon Ambriz DO Work Phone: 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 Start: 11-26-2023 End: 11-26-2023 Periodic preventive med est patient 40-64yrs Kalpana FLORIAN Work Phone: [facility] Comment on above: Breast cancer screen ing by mammogram; Well woman exam with routine gynecological exam; Menorrhagia with regular cycle Start: 11-26-2023 End: 11-26-2023 ambulatory KALPANA ISSA Not Available Start: 05-28-2023 End: 05-28-2023 ambulatory NIXON AMBRIZ Not Available Start: 05-15-2023 End: 05-15-2023 ambulatory [facility] Work Phone: Start: 05-15-2023 End: 05-15-2023 Patient encounter procedure [facility] [place] Work Phone: Start: 04-11-2023 End: 04-11-2023 ambulatory [facility] Work Phone: Start: 04-11-2023 End: 04-11-2023 Patient encounter procedure [facility] [place] Work Phone: Start: 02-26-2023 End: 02-26-2023 ambulatory NIXON AMBRIZ Not Available Start: 02-05-2023 End: 02-05-2023 ambulatory NIXON AMBRIZ Not Available Start: 01-29-2023 End: 01-29-2023 ambulatory NITESH HILLS Not Available Start: 01-15-2023 End: 01-15-2023 ambulatory NIXON AMBRIZ Not Available Start: 01-14-2023 End: 01-14-2023 ambulatory NITESH HILLS Not Available Start: 01-18-2021 End: 01-18-[address] Effie HILLS Facility:[facility] Start: 09-23-2020 Encounter for gynecological examination (general) (routine) without abnormal findings DR GETACHEW ISLAS [facility] Start: 09-14-2020 End: 09-14-[address] GETACHEW ISLAS Facility:[facility] Start: 08-19-2020 End: 08-19-[address] AMANDA WEST Facility:[facility] Procedures Date Procedure Procedure Detail Performing Clinician Start: 11-26-2023 Radex hip unilateral with pelvis 2-3 views Nixon Ambriz DO Work Phone: Start: 04-11-2023 COVID/Influenza Anti gen (POC) Start: 04-11-2023 Quick Strep (POC) Start: 01-29-2023 Mammography Kalpana FLORIAN Work Phone: Plan of Treatment Date Care Activity Detail Author Start: 02-11-2024 End: 02-11-2024 Patient encounter procedure 02/11/2024 2:45 PM EST Office Visit [facility] [address] [place] [id number] Nixon Ambriz DO [address] [facility] [address] [place] [address] [facility] Start: 01-31-2024 End: 01-25-2025 MG Breast - bilateral Screening Bilateral screening mammogram Imaging Routine Breast cancer screening by mammogram Expected: 01/31/2024 (Approximate), Expires: 01/25/2025 [facility] Work Phone: Comment on above: Expected: 01/31/2024 (Approximate), Expires: 01/25/2025 Start: 01-30-2024 Screening for malignant neoplasm of breast Mammogram [facility] Start: 01-06-2024 End: 01-06-2024 Patient encounter procedure 01/06/2024 3:30 PM EST Procedure Visit [facility] [address] [place] [address] Getachew Islas, [address] [place], [place] [id number] [facility] Start: 11-26-2023 End: 11-25-2024 aPTT in Blood by Coagulation assay APTT Lab Routine Menorrhagia with regular cycle Expected: 11/26/2023 (Approximate), Expires: 11/25/2024 [facility] Comment on above: Expected: 11/26/2023 (Approximate), Expires: 11/25/2024 Start: 11-26-2023 End: 11-25-2024 US for US PELVIS-TRANSVAG IF INDICATED Imaging Routine Menorrhagia with regular cycle Expected: 11/26/2023 (Approximate), Expires: 11/25/2024 [facility] Comment on above: Expected: 11/26/2023 (Approximate), Expires: 11/25/2024 Start: 11-26-2023 End: 11-26-2023 Patient encounter procedure [facility] Comment on above: Arrived Start: 10-27-2023 Influenza vaccination Influenza Vacc ine (#1) [facility] Start: 2012 Screening for malignant neoplasm of cervix [facility] Start: 09-21-2004 Screening for malignant neoplasm of cervix Pap Smear [facility] CBC W Auto Differential panel - Blood CBC and differential Lab Routine Menorrhagia with regular cycle Ordered: 11/26/20[address] [facility] Comment on above: Ordered: 11/26/2023 hCG, quantitative, hCG, quantitative, Lab Routine Menorrhagia with regular cycle Ordered: 11/26/2023 [facility] Comment on above: Ordered: 11/26/2023 Hemoglobin A1c/Hemoglobin.total in Blood Hemoglobin A1c Lab Routine Menorrhagia with regular cycle Ordered: 11/26/2023 [facility] Comment on above: Ordered: 11/26/2023 Prothrombin time (PT ) in Blood by Coagulation assay Protime-INR Lab Routine Menorrhagia with regular cycle Ordered: 11/26/2023 [facility] Comment on above: Ordered: 11/26/2023 THIN PREP TIS PAP AN D HR HPV DNA THIN PREP TIS PAP AND HR HPV DNA Pathology and Cytology Routine Well woman exam with routine gynecological exam Ordered: 11/26/2023 [facility] Comment on above: Ordered: 11/26/2023 Thyrotropin [Units/volume] in Serum or Plasma TSH Lab Routine Menorrhagia with regular cycle Ordered: 11/26/2023 [facility] Comment on above: Ordered: 11/26/2023 Thyroxine (T4) free [Mass/volume] in Serum or Plasma T4, free Lab Routine Menorrhagia with regular cycle Ordered: 11/26/2023 [facility] Comment on above: Ordered: 11/26/2023 Immunizations Immunization Date Immunization Notes Care Provider [facility] 11-02-2018 influenza, injectabl e, quadrivalent, preservative free Kalpana FLORIAN Work Phone: [facility] 11-02-2018 influenza virus vacc ine, unspecified formulation Kalpana FLORIAN Work Phone: [facility] 11-01-2018 influenza, injectabl e, quadrivalent, preservative free Kalpana FLORIAN Work Phone: [facility] 08-19-2014 tetanus toxoid, redu shmuel diphtheria toxoid, and acellular pertussis vaccine, adsorbed Kalpana FLORIAN Work Phone: [facility] 08-18-2014 tetanus toxoid, redu shmuel diphtheria toxoid, and acellular pertussis vaccine, adsorbed Kalpana FLORIAN Work Phone: [facility] Payers Date Payer Category Payer Unknown BCBS BCBS [id number] 2017-Present [phone] [address] [place] [address] [id number] 1982 Unknown [id number] 1982 Unknown [id number] [id number] 1982 Unknown [id number] [id number] 1982 Unknown [id number] [id number] 1982 Unknown [id number] [id number] 1982 Unknown [id number] [id number] 1982 Unknown [id number] [id number] 1982 Unknown [id number] [id number] 1982 Unknown [id number] [id number] 1982 Unknown [id number] [id number] 1982 Unknown [id number] [id number] 1982 Unknown [id number] [id number] 1982 Unknown [id number] [id number] 1982 Unknown [id number] [id number] 1982 Unknown [id number] 1959 Unknown [id number] Self-pay Self Pay [id number] Social History Date Type Detail Facility Start: 06-29-2020 End: 11-26-2023 Tobacco smoking status DCIS Ex-smoker (finding) [facility] Start: 1980 Sex Assigned At Female [facility] History of tobacco use Current smoker [facility] History of tobacco use Cigarette Smoker [facility] Start: 11-08-2022 End: 2022 Cigarettes smoked current (pack per day) - Reported 0.3 [facility] Start: 2022 End: 11-26-2023 Tobacco use and exposure Smokeless tobacco non-user [facility] Start: 02-26-2023 End: 11-26-2023 Alcoholic beverage intake Current drinker of alcohol (finding) [facility] Start: 11-08-2022 End: 2022 Humiliation, Afraid, Rape, and Kick questionnaire [HARK] [facility] Within the last year , have you been afraid of your partner or ex-partner? No [facility] Do you belong to any clubs or organizations such as episcopalian groups, unions, fraternal or athletic groups, or school groups? Yes [facility] Are you now , , , , never or living with a partner? [facility] How often to you hav e a drink containing alcohol? Monthly or less [facility] How many standard dr inks containing alcohol do you have on a typical day? 3 or 4 [facility] How often do you hav e 6 or more drinks on 1 occasion? Less than monthly [facility] How hard is it for y ou to pay for the very basics like food, housing, medical care, and heating Not very hard [facility] Do you feel stress - tense, restless, nervous, or anxious, or unable to sleep at night because your mind is troubled all the time - these days [OSQ] To some extent [facility] (I/We) worried wheth er (my/our) food would run out before (I/we) got money to buy more. Never true [facility] In the past 12 month s, has lack of transportation kept you from medical appointments or from getting medications? No [facility] Start: 11-08-2022 Tobacco Comment Quit smoking 1 year ago [facility] Start: 1980 Sex assigned at Not on file [facility] History of Present illness Narrative 11-26-2023 Nixon Ambriz, DO - 11/26/2023 2:45 PM EDT Note Date & Type Note Facility 11-26-2023 History of Presen t illness Narrative Images from the original note were not included. HISTORY OF PRESENT ILLNESS: Daysi Medina is an 43 y.o. @ female. Follow up RT IMAN RT hip 1 year s/p RT IMAN 12/05/22. Walking well without assistance. She does note some tenderness when laying on that side. Incision well healed. Denies giving out sensation. Denies N/T. Pt pleased with outcome of surgery so far. Pt is working without issues. Not taking anything for pain. MEDICATION: Current Outpatient Medications on File Prior to Visit Medication Sig Dispense Refill [DISCONTINUED] Brexpiprazole (Rexulti) 2 MG tablet Take 1 tablet by mouth at bedtime. 30 tablet 5 No current facility-administered medications on file prior to visit. MEDICAL HISTORY: Past Medical History: Diagnosis Date Anxiety Arthritis Bipolar 2 disorder ([facility]) Depression ([facility]) Osteoporosis ([facility]) 11/2020 ALLERGIES: No Known Allergies VITALS: Visit Vitals OB Status Implant Smoking Status Former PHYSICAL EXAM: Ortho Exam Ambulating with an intact gait. No limp. 5/5 abduction strength. Right hip is 30 degrees of internal rotation and 40 degrees of external rotation. Leg lengths symmetric. IMAGING: XR hip right 2 or 3 views Imaging Result: November 26, 2023 x-rays AP and lateral of the right hip demonstrate a right total hip replacement in good position alignment without signs of loosening fracture or failure. Impression: Stable appearance of right total hip replacement Nhan Ambriz D.O. ASSESSMENT: ICD-10-CM 1. Primary osteoarthritis of right hip M16.11 XR hip right 2 or 3 views 2. S/P hip replacement, right Z96.641 PLAN: I discussed with the patient the general recommendation for the use of prophylactic antibiotics prior to dental work after joint replacement. I advised the patient that the use of prophylactic antibiotics for dental work is a controversial topic. I currently have recommended that prophylactic antibiotics be used for 2 years postop and I did advise the patient that the guidelines and recommendations may change on this in the future. Follow up in one year with xrays, any issues/concerns follow up sooner. Dr. Ambriz obtained history and examined the patient, I am acting as scribe for Dr. Ambriz/ra Ambriz D.O. documented in this encounter [facility] History of Present illness Narrative 11-26-2023 CHIQUI Pavon - 11/26/2023 9:00 AM EDT Note Date & Type Note Facility 11-26-2023 History of Presen t illness Narrative Reason for Appointment: Patient ID: Daysi Medina is a 43 y.o. female who presents for Well Women Visit Patient presents today for Annual Exam. MEDICATIONS No current outpatient medications ALLERGIES No Known Allergies PROBLEMS Active Ambulatory Problems Diagnosis Date Noted Bipolar 2 disorder ([facility]) 11/07/2022 Osteoarthritis of left hip 11/07/2022 Status post total replacement of right hip 11/07/2022 Insomnia 11/07/2022 Thyroid nodule ([facility]) 11/07/2022 Bipolar affective disorder, currently depressed, moderate ([facility]) 05/18/2020 Class 2 obesity 01/03/2021 Difficulty walking 01/30/2021 Disability of walking 11/08/2022 Loss of taste 01/10/2021 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 11/08/2022 Arthritis of left hip 12/21/2020 Primary localized osteoarthritis of left hip 01/31/2021 Primary localized osteoarthritis of right hip 12/12/2022 Resolved Ambulatory Problems Diagnosis Date Noted No Resolved Ambulatory Problems Past Medical History: Diagnosis Date Anxiety Arthritis Depression ([facility]) Osteoporosis ([facility]) 11/2020 HISTORY PAST MEDICAL HISTORY SOCIAL HISTORY Past Medical History: Diagnosis Date Anxiety Arthritis Bipolar 2 disorder ([facility]) Depression ([facility]) Osteoporosis ([facility]) 11/2020 Social History Tobacco Use Smoking status: Former Current packs/day: 0.25 Average packs/day: 0.3 packs/day for 5.2 years (1.3 ttl pk-yrs) Types: Cigarettes Smokeless tobacco: Never Tobacco comments: Quit smoking 1 year ago Substance Use Topics Alcohol use: Yes Alcohol/week: 3.0 standard drinks of alcohol Types: 3 Cans of beer per week Drug use: Never FAMILY HISTORY Family History Problem Relation Name Age of Onset Breast cancer Mother Mariya Stoll Cancer Mother Mariya Stoll Hypertension Father Shady Stoll Diabetes Father Shady Stoll SURGICAL HISTORY Past Surgical History: Procedure Laterality Date CT ANGIOGRAM HEART CORONARY 02/18/2021 CT ANGIOGRAM TAVR 02/18/2021 JOINT REPLACEMENT 01/2021 TOTAL HIP ARTHROPLASTY Left 02/01/2021 with cables for femur fx Dr Ambriz TOTAL HIP ARTHROPLASTY Right 12/05/2022 Dr Ambriz VARICOSE VEIN SURGERY REVIEW OF SYSTEMS Review of Systems: Review of Systems Constitutional: Negative. HENT: Negative. Eyes: Negative. Respiratory: Negative. Cardiovascular: Negative. Gastrointestinal: Negative. Genitourinary: Negative. Musculoskeletal: Negative. Skin: Negative. Neurological: Negative. All other systems reviewed and are negative. Hematological: Negative. Endocrine: Negative. Allergic/Immunologic: Negative. OBJECTIVE Objective: Physical Exam Constitutional: Appearance: Normal appearance. Genitourinary: Right Adnexa: not tender and no mass present. Left Adnexa: not tender and no mass present. No cervical discharge. IUD strings visualized. Breasts: Breasts are soft. Right: Normal. Left: Normal. HENT: Head: Normocephalic. Nose: Nose normal. Mouth/Throat: Mouth: Mucous membranes are moist. Cardiovascular: Rate and Rhythm: Normal rate. Pulmonary: Effort: Pulmonary effort is normal. Abdominal: General: Bowel sounds are normal. Palpations: Abdomen is soft. Musculoskeletal: General: Normal range of motion. Cervical back: Normal range of motion. Neurological: General: No focal deficit present. Mental Status: She is alert. Skin: General: Skin is warm and dry. Psychiatric: Mood and Affect: Mood normal. Vitals and nursing note reviewed. Exam conducted with a steam tender present. Vitals: Estimated body mass index is 35.83 kg/m as calculated from the following: Height as of this encounter: 5' 6 . Weight as of this encounter: 222 lb. BP: 124/80 No LMP recorded. Patient has had an implant. ASSESSMENT & PLAN ICD-10-CM 1. Breast cancer screening by mammogram Z12.31 Bilateral screening mammogram Bilateral screening mammogram 2. Well woman exam with routine gynecological exam Z01.419 THIN PREP TIS PAP AND HR HPV DNA 3. Menorrhagia with regular cycle N92.0 CBC and differential TSH hCG, quantitative, Protime-INR T4, free APTT Hemoglobin A1c US PELVIS-TRANSVAG IF INDICATED APTT Annual Exam: Patient presents today for an annual exam. Patient states she is doing well and has no complaints. Pap was obtained without difficulty. Orders Placed This Encounter Procedures Bilateral screening mammogram US PELVIS-TRANSVAG IF INDICATED CBC and differential TSH hCG, quantitative, Protime-INR T4, free APTT Hemoglobin A1c Follow Up: Patient states she has had increased bleeding and pelvic discomfort over past several months despite having mirena. Patient desires surgical intervention with bilateral salpingectomy and ablation. Patient will have US and labs ordered and get on schedule for procedure Documented by CHIQUI Pavon on behalf of: CHIQUI Pavon documented in this encounter [facility] Evaluation note Note Date & Type Note Facility Evaluation note No assessment information availa ble [facility] Work Phone: Evaluation note Note Date & Type Note Facility Evaluation note Diagnosis Onset Date Contact with or exposure to other viral diseases acute Influenza B acute Sunburn of first degree none active [facility] Work Phone: Evaluation note Note Date & Type Note Facility Evaluation note Diagnosis Primary osteoarthritis of right hip S/P hip replacement, right Breast cancer screening by mammogram Well woman exam with routine gynecological exam Routine gynecological examination Menorrhagia with regular cycle documented in this encounter [facility] Evaluation note Note Date & Type Note Facility Evaluation note Diagnosis Primary osteoarthritis of right hip- Primary S/P hip replacement, right documented in this encounter [facility] Summary Purpose Family History No Family History Records Found Relationship Condition Age at Onset Recorded Date/T rosa elena Not Specified Malignant neoplasm of breast Unknown Not Specified Malignant neoplasm Unknown Malignant neoplasm of breast Unknown Advance Directives No Advanced Directives Records Found Advance Directive Response Recorded Date/ Time Advance Directives No June 07 12:19pm Advance Directive Response Recorded Date/ Time Advance Directives No June 07 1:19pm Chief Complaint and Reason for Visit Chief Complaint sore throat Chief Complaint sore throat sunburn on both legs Reason for Visit Contact with or expo sure to other viral diseases Influenza B Sunburn of first degree Additional Source Comments INFORMATION SOURCE (unrecogn ized section and content) DATE CREATED AUTHOR 01/29/2021 [facility] DATE CREATED AUTHOR AUTHOR'S ORGANIZ ATION 03/03/2021 [facility] Me dical Specialist DATE CREATED AUTHOR AUTHOR'S ORGANIZ ATION 03/12/2021 [facility] DATE CREATED AUTHOR AUTHOR'S ORGANIZ ATION 12/01/2023 [facility] EPIC Care Teams (unrecognized sec tion and content) Team Status: Active Member Role Status Dates Van Hills DO Primary Care Provider Active Team Status: Inactive Member Role Status Dates [place] DO Primary Care Provider Active Start: April 11, 2023 End: April 11, 2023 Jody Joyner APRN Attending Provider Active Start: April 11, 2023 End: April 11, 2023 Team Status: Inactive Member Role Status Dates [place] Hills DO Primary Care Provider Active Start: May 15, 2023 End: May 15, 2023 DEBBI Costa Attending Provider Active S tart: May 15, 2023 End: May 15, 2023 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 Start Date End Date Nitesh Hills DO [address] [place] [address] [facility] Nitesh Hills DO [address] [place] [address] PCP - General Family Medicine 07/03/22 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 Start Date End Date Nitesh Hills DO [address] [place] [address] PCP - [facility] [employer] 09/25/20 Nitesh Hills, DO [address] [place] [address] PCP - General Family Medicine 07/03/22 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 Start Date End Date iNtesh Hills, DO [address] [place] [address] PCP - [employer] [employer] 09/25/20 ОлегcristianNitesh, DO [address] [place] [address] PCP - General Family Medicine 07/03/22 Goals (unrecognized section and content) Goals may be documented in a n alternate sectionGoals may be documented in an alternate section Reason for Visit (unrecogniz ed section and content) Reason Comments Well Women Visit Reason Comments Follow-up FOR RECORDS PERTAINING TO PATIENTS WHO ARE OR HAVE BEEN ENROLLED IN A CHEMICAL DEPENDENCY/SUBSTANCEABUSE PROGRAM, SOME INFORMATION MAY BE OMITTED. This clinical summary was aggregated from multiple sources. Caution should be exercised in using it in the provision of clinical care. This summary normalizes information from multiple sources, and as a consequence, information in this document may materially change the coding, format and clinical context of patient data. In addition, data may be omitted in some cases. CLINICAL DECISIONS SHOULD BE BASED ON THE PRIMARY CLINICAL RECORDS. [employer] [facility]. provides no warranty or guarantee of the accuracy or completeness of information in this document.
--- NOTE | 2023-12-02 16:26 | US_ITS ---
[address] [address] Patient Name: VIOLETA GARCIA MRN: [id number] date: 1980 Sex: F Assigned Patient Location: US Current Patient Location: Accession/Order Number: [id number] Exam Date: 12/02/2023 16:33 Report Date: 12/03/2023 04:52 At the request of: ANTOLIN ISSA Procedure: US pelvis w/ transvaginal EXAMINATION: US pelvis w/ transvaginal HISTORY: MENORRHAGIA WITH REGULAR CYCLE N92.0 COMPARISON: Ultrasound pelvis 06/06/2019 TECHNIQUE: Transabdominal and/or transvaginal sonographic examination was performed as indicated by examination type. FINDINGS: UTERUS: Normal size and appearance. Uterus size: 8.0 x 4.3 x 4.9 cm. ENDOMETRIUM: IUD within fundal endometrial cavity. Normal homogeneous appearance. Endometrial thickness: 16 mm RIGHT OVARY: Normal size and appearance. Duplex Doppler demonstrates normal waveform and flow; resistive index 0.6. Ovary size: 2.6 x 1.6 x 2.67 m LEFT OVARY: Normal size and appearance. Duplex Doppler demonstrates normal waveform and flow; resistive index 0.5. Ovary size: 3.2 x 1.9 x 2.6 cm CUL-DE-SAC: Unremarkable. No significant free fluid. BLADDER: Unremarkable. OTHER: None. US/US pelvis w/ transvaginal IMPRESSION: 1. IUD within endometrial cavity. 2. Minimally thickened endometrium, 6 mm. Electronically authenticated by: MYRA MAE Date: 12/03/2023 04:52
[2023-12-02 16:29] LABS: Basophils Percent Auto 0.5 % (0.2-2.0); Eosinophils Absolute Auto 0.2 10^3/uL (0.0-0.7); Hematocrit 41.4 % (36.0-48.0); Hemoglobin 13.6 g/dL (12.0-16.0); Immature Granulocytes Abs Auto 0.03 10^3/uL (0.00-0.03); Immature Granulocytes Pct Auto 0.5 % (0.0-0.5); Lymphocytes Absolute Auto 1.5 10^3/uL (1.2-3.8); Lymphocytes Percent Auto 24.7 % (20.5-60.0); Mean Corpuscular HGB Conc 32.9 g/dL (29.9-35.2); Mean Corpuscular Volume 91.2 fL (81.0-99.0); Mean Platelet Volume 12.3 fL (9.5-13.5); Monocytes Absolute Auto 0.6 10^3/uL (0.3-0.8); Monocytes Percent Auto 9.6 % (1.7-12.0); Neutrophils Absolute Auto 3.6 10^3/uL (1.4-6.5); Neutrophils Percent Auto 60.7 % (43.0-75.0); Platelet Count 243 10^3/uL (150-450); Red Blood Count 4.54 10^6/uL (4.20-5.40); Red Cell Distribution Width 12.9 % (11.0-15.0); White Blood Count 5.9 10^3/uL (4.0-11.0)
[2023-12-02 16:34] LABS: Estimated Average Glucose 103 mg/dL; Glycohemoglobin A1C 5.2 % (4.5-6.2)
[2023-12-02 16:49] LABS: INR 0.97; Partial Thromboplastin Time 30.2 sec (22.3-36.2); Prothrombin Time 10.3 sec (9.0-11.6)
[2023-12-02 17:45] LABS: Free T4 0.92 ng/dL (0.76-1.46)
[2023-12-02 17:50] LABS: Thyroid Stimulating Hormone 2.453 uIU/mL (0.358-3.740)
[2023-12-02 18:02] LABS: HCG Quantitative <1 mIU/mL
== END 2023-12-02 16:10 | disposition home or self-care (01) ==
LOC: US 16:09
PROVIDERS: PCP Family Medicine; Visit Provider Physician Assistant
DX: N92.0 Excessive and frequent menstruation with regular cycle (principal); Z97.5 Presence of (intrauterine) contraceptive device
CPT/HCPCS: 36415; 76830; 76856; 83036; 84439; 84443; 84702; 85025; 85610; 85730

== ENCOUNTER 2024-01-01 15:29 | Outpatient (REF) | payer BC, SELFPAY ==
--- OUTSIDE RECORDS SUMMARY | 2024-01-03 15:44 | XMS_ITS | CCD ---
Author Organization [facility] CliniSyme Care Team Providers Care Healthcare Receptionist Name Role Phone ANNA, DR Effie GRACIA Admitting Unavailable KAFTAN, DR Effie GRACIA Attending Unavailable KAFTAN, DR [...] Primary Care Provider NIXON AMBRIZ Attending Unavailable ANNA, NITESH Schilling Referring Unavailable DK, NIXON Huerta Attending Unavailable DK, NIXON Huerta Referring Unavailable DK, NIXON Huerta Attending Unavailable DK, NIXON Huerta Referring Unavailable NITESH HILLS Referring Unavailable DK, NIXON Huerta Attending Unavailable DK, NIXON Huerta Referring Unavailable KALPANA ISSA Attending Unavailable DK, NIXON Huerta Attending Unavailable DK, NIXON Huerta Referring Unavailable GETACHEW ISLAS Attending Unavailable Medications Current Medications Medication Drug Class(es) Dates Sig (Normalized) Sig (Original) [id number] 200 actuat albuterol 0.09 mg/actuat metered dose inhaler (1 source) beta2-Adrenergic Agonist Start: 4 take 1 puff(s) by inhalation every four hours Albuterol Sulfate Active 2 PUFF INHALATION Q4H 1 December 09, 2023 12:00am amoxicillin 875 mg oral tablet (1 source) Penicillin-class Antibacterial Start: 4 take 875 mg by mouth twice daily Amoxicillin Active 875 MG PO Twice daily 14 December 09, 2023 12:00am dextromethorphan hydrobromide 15 mg / guaiFENesin 400 mg / pseudoephedrine hydrochloride 60 mg oral tablet (3 sources) alpha-Adrenergic Agonist, Uncompetitive P-gynrxm-T-asparta te Receptor Antagonist, Sigma-1 Agonist Start: 4 End: 4 take 4 tablets by mouth every twenty-four hours Oyoskuzxsnnzuhf-Ir-Lw aifenesin (Capmist Dm) 60-15-400 mg tablet Active 1 TAB PO EVERY 4-6 HOURS December 09, 2023 12:00am do not exceed 4 doses per 24 hrs methylPREDNISolone 4 mg oral tablet (3 sources) Corticosteroid Start: 4 End: 4 take 1 tablet by mouth once Methylprednisolone (Medrol (Ross)) 4 mg tablets,dose pack Active 0 PO per package directions December 09, 2023 12:00am PO PER PKG DIR for 6 days Completed/Discontinued Medications Medication Drug Class(es) Dates Sig (Normalized) Sig (Original) ARIPiprazole 5 mg oral tablet (3 sources) Atypical Antipsychotic Start: 06-29-2020 End: 04-11-2023 take 5 mg by mouth once daily Aripiprazole Discontinued 5 MG PO Daily June 29, 2020 12:00am April 11, 2023 4:51pm brexpiprazole 2 mg oral tablet (6 sources) Atypical Antipsychotic Start: 2022 End: 12-09-2023 take 1 tablet by mouth once daily Brexpiprazole (Rexulti) 2 mg tablet Discontinued 2 MG PO Daily April 11, 2023 1:00am December 09, 2023 4:40pm clonazePAM 0.5 mg oral tablet (3 sources) Benzodiazepine Start: 06-29-2020 End: 04-11-2023 take 0.5 mg by mouth twice daily Clonazepam Discontinued 0.5 MG PO Twice daily June 29, 2020 12:00am April 11, 2023 4:50pm fluticasone propionate 0.05 mg/actuat metered dose nasal spray (2 sources) Corticosteroid Start: 04-11-2023 End: 12-09-2023 take 1 spray(s) nasal route twice daily Fluticasone Propionate (Flonase Allergy Relief) 50 mcg/actuation spray,suspension Discontinued 1 SPRAY INTRANASAL Twice daily April 11, 2023 1:00am December 09, 2023 4:40pm administer 1 spray into each nostril phentermine hydrochloride 37.5 mg oral tablet (3 sources) Sympathomimetic Amine Anorectic Start: 06-29-2020 End: 04-11-2023 take 37.5 mg by mouth once daily Phentermine Discontinued 37.5 MG PO Daily June 29, 2020 12:00am April 11, 2023 4:50pm Problems Active Problems Problem Classification Problem Date Documented Date Episodic/Chronic Immunizations and screening for infectious disease (6 sources) Encounter for screening for human papillomavirus (HPV); Translations: [Contact with and (suspected) exposure to other viral communicable diseases] Onset: 09-23-2020 04-11-2023 Episodic Influenza (4 sources) Influenza due to Influenza B virus; Translations: [Influenza due to other identified influenza virus with other respiratory manifestations] 04-11-2023 Episodic Menstrual disorders (2 sources) Menorrhagia; Translations: [Excessive and frequent menstruation with regular cycle] 11-26-2023 Chronic Mood disorders (14 sources) Bipolar II disorder; Translations: [Bipolar II disorder] Onset: 05-18-2020 11-07-2022 Chronic Osteoarthritis (20 sources) Osteoarthritis of left hip joint; Translations: [Unilateral primary osteoarthritis, left hip] Onset: 12-21-2020 11-07-2022 Chronic Other connective tissue disease (7 sources) History of total hip arthroplasty; Translations: [Presence of right artificial hip joint] Onset: 11-07-2022 12-12-2022 Chronic Other connective tissue disease (2 sources) History of repair of hip joint; Translations: [Presence of right artificial hip joint] 11-26-2023 Chronic Other inflammatory condition of skin (1 source) Sunburn of first degree; Translations: [Sunburn] 05-15-2023 Episodic Other nervous system disorders (7 sources) Difficulty walking; Translations: [Difficulty in walking, not elsewhere classified] Onset: 01-30-2021 11-08-2022 Chronic Other nervous system disorders (7 sources) Walking disability; Translations: [Difficulty in walking, not elsewhere classified] Onset: 11-08-2022 11-08-2022 Chronic Other nutritional; endocrine; and metabolic disorders (7 sources) Obese class II; Translations: [Class 2 obesity] Onset: 01-03-2021 11-08-2022 Chronic Other screening for suspected conditions (not mental disorders or infectious disease) (2 sources) Patient encounter status; Translations: [Encounter for screening mammogram for malignant neoplasm of breast] 11-26-2023 Episodic Thyroid disorders (7 sources) Thyroid nodule; Translations: [Nontoxic single thyroid [...] Onset: 09-14-2020 Episodic Other nervous system disorders (7 sources) Loss of taste; Translations: [Parageusia] Onset: 01-10-2021 11-08-2022 Episodic Residual codes; unclassified (7 sources) Insomnia; Translations: [Insomnia, unspecified] Onset: 11-07-2022 11-07-2022 Episodic Unclassified (1 source) CONTACT W/AND (SUSP) EXPOS COVID-19; Translations: [CONTACT W/AND (SUSP) EXPOS COVID-19] Onset: 01-18-2021 Results Test Name Value Interpretation Reference Range Facility IGP,APTIMA HPV,AGE GDLNon AGE GDLN ACOG TESTING Note . [facility] Comment on above: TESTS RESULT FLAG UN ITS REF RANGE LAB Clinician Provided Cytology Information Source.............Cervix;Endocervix No. of containers..01 ThinPrep Vial Age Algo ACOG Yamilex... 30-65 01 FLAG LEGEND: L-Low Normal,H-High Normal,LL-Alert Low,HH-Alert High <-Panic Low,>-Panic High,A-Abnormal,AA-Critical Abnormal Performed at: 01 =[address] [id number] Alexandria Jones MD, HPV APTIMA Positive Abnormal Negative [facility] Comment on above: This nucleic acid am plification test detects fourteen high- risk HPV types (16,18,31,33,35,39,45,51,52,56,58,59,66,68) without differentiation. Performed at: =[address] [id number] Criminal Justice Social Worker: Alexandria Jones MD, Phone: [phone] Performed at: [address] [id number] Criminal Justice Social Worker: Alexandria Jones MD, Phone: [phone] IGP, APTIMA HPV, RFX 16/18,45 Note Abnormal . [facility] Comment on above: TESTS RESULT FLAG UN ITS REF RANGE LAB DIAGNOSIS: [A] 02 EPITHELIAL CELL ABNORMALITY. ATYPICAL SQUAMOUS CELLS OF UNDETERMINED SIGNIFICANCE (ASC-US). Specimen adequacy: 02 Satisfactory for evaluation. Endocervical and/or squamous metaplastic cells (endocervical component) are present. Areas of partially obscuring inflammatory exudate are present. Performed by: 02 Moira Spaulding, Returned Telephone Equipment Appraiser (ASCP) Electronically si... Sindhu Lester MD, Pathologist . 02 Pathologist ICD10: 02 R87.610 Note: Note 02 The Pap smear is a screening test designed to aid in the detection of premalignant and malignant conditions of the uterine cervix. It is not a diagnostic procedure and should not be used as the sole means of detecting cervical cancer. Both false-positive and false-negative reports do occur. Test Methodology: Note 02 This liquid based ThinPrep(R) pap test was screened with the use of an image guided system. HPV Genotype Reflex Note 02 Criteria not met, HPV Genotype not performed. FLAG LEGEND: L-Low Normal,H-High Normal,LL-Alert Low,HH-Alert High <-Panic Low,>-Panic High,A-Abnormal,AA-Critical Abnormal Performed at: [address] [id number] Alexandria Jones MD, Interpretation and review of laboratory results Abnormal [facility] BRUSH-SPATULA CERVIX ENDOCERVIX [facility] ALL CBC WITH AUTO DIFFon BASOPHILS ABSOLUTE AUTO 0.0 [facility] Basophils/100 WBC (Bld) 0.5 % 0.2 - 2.0 % [facility] Eosinophils/100 WBC (Bld) 4.0 % 0.9 - 7.0 % [facility] Erythrocyte distribution width (RBC) [Ratio] 12.9 % 11.0 - 15.0 % [facility] Hematocrit (Bld) [Volume fraction] 41.4 % 36.0 - 48.0 % [facility] Hemoglobin (Bld) [Mass/Vol] 13.6 g/dL 12.0 - 16.0 g/dL [facility] IMMATURE GRANULOCYTES ABS AUTO 0.03 [facility] Immature granulocytes/100 WBC (Bld) 0.5 % 0.0 - 0.5 % [facility] LYMPHOCYTES ABSOLUTE AUTO 1.5 [facility] Lymphocytes/100 WBC (Bld) 24.7 % 20.5 - 60.0 % [facility] MCH (RBC) [Entitic mass] 30.0 pg 26.7 - 34.0 pg [facility] MCHC (RBC) [Mass/Vol] 32.9 g/dL 29.9 - 35.2 g/dL [facility] MCV (RBC) [Entitic vol] 91.2 fL 81.0 - 99.0 fL [facility] MONOCYTES ABSOLUTE AUTO 0.6 [facility] Monocytes/100 WBC (Bld) 9.6 % 1.7 - 12.0 % [facility] NEUTROPHILS ABSOLUTE AUTO 3.6 [facility] Neutrophils/100 WBC (Bld) 60.7 % 43.0 - 75.0 % [facility] Platelet mean volume (Bld) [Entitic vol] 12.3 fL 9.5 - 13.5 fL [facility] TBH EO # 0.2 [facility] TBH PLT [address] [facility] RBC 4.54 [facility] TB WBC 5.9 [facility] MLR HEMOGLOBIN A1Con 024 Glucose [Mass/Vol] 103 mg/dL [facility] HbA1c (Bld) [Mass fraction] 5.2 % 4.5 - 6.2 % [facility] Comment on above: ADA RECOMMENDED LIMI T 4.0 - 6.0 ADA THERAPEUTIC TARGET < 7.0 ACTION SUGGESTED > 7.0 No Panel Informationon 12-01 [facility] XR Hip - right 3 [facility] Result: November 26, 2023 x-rays AP and lateral of the right hip demonstrate a right total hip replacement in good position alignment without signs of loosening fracture or failure. Impression: Stable appearance of right total hip replacement Nhan Ambriz D.O. Critical [facility] hospital Radiology Study observation (narrative) [facility] No Panel InformationOrdered By: Jody Joyner on 04-11-2023 COVID/Influenza Antigen (POC) [facility] Quick Strep (POC) [facility] BI MAMMOGRAM DIAGNOSTIC JENNIFER SYNTHESIS LEFTon 01-29-2023 [...] IS VERY IMPORTANT TO YOUR HEALTH. THE [employer] GUIDELINES RECOMMEND THAT WOMEN 40 [...] VERY IMPORTANT TO YOUR HEALTH. THE CURRENT [employer] AND [employer] NETWORK GUIDELINES RECOMMENDS ANNUAL MAMMOGRAPHY BEGINNING AT AGE 40. THIS FACILITY UTILIZES A REMINDER SYSTEM TO ENSURE ALL PATIENTS RECEIVE REMINDER NOTIFICATIONS AT THE APPROPRIATE TIME BASED ON THE RECOMMENDATIONS OF THIS EXAM. ELECTRONICALLY SIGNED BY: Frank Adams MD Abnormal Not Available ESTHER Antinuclear Antibodieson 03-02-2021 Antinuclear Abs, IFA Negative Normal . [facility] Comment on above: Order Comment: Healt hcare Worker?: N Result Comment: Nega tive <1:80 Borderline 1:80 Positive >1:80 ICAP nomenclature: AC-0 For more information about Hep-2 cell patterns use ANApatterns.org, the official website for the International Consensus on Antinuclear Antibody (ESTHER) Patterns (ICAP). Performed at: [address] [id number] Criminal Justice Social Worker: Timoteo Devries PhD, Phone: [phone] Performed By: #### C OVID-19 [facility] #### [facility] [address] [place] [address] [place] CMV IgG Antibodyon 2 CMV IgG Antibody <0.60 Normal 0.00-0.59 [facility] [place] [facility] Comment on above: Order Comment: Healt hcare Worker?: N Result Comment: Nega tive <0.60 Equivocal 0.60 - 0.69 Positive >0.69 Performed By: #### C OVID-19 [facility] #### [facility] [address] [place], [place] [id number] [place] CMV IgM Antibodyon 2 CMV IgM Antibody <30.0 Normal 0.0-29.9 [facility] [place] [facility] Comment on above: Order Comment: Healt hcare Worker?: N Result Comment: Nega tive <30.0 Equivocal 30.0 - 34.9 Positive >34.9 A positive result is generally indicative of acute infection, reactivation or persistent IgM production. Performed at: - [address] [id number] Criminal Justice Social Worker: Timoteo Devries PhD, Phone: [phone] Performed By: #### C OVID-19 [facility] #### [address] Comprehensive Metabolic Pane [place] 03-02-2021 Albumin [Mass/Vol] 3.8 g/dL Normal 3.2-5.5 [facility] Comment on above: Order Comment: Reaso n for Exam Elevated liver enzymes Performed By: #### E BV VCAIGG, RFXHEPCINTERP, CMVIGM, CMVIGG, HEPACUTE, ESTHER, EBV VCAIGM, LC FERRITIN, MITOM2 #### [facility] , #### LIBIA, FE and TIBC, CMP #### [address] Albumin/Globulin [Mass ratio] 1.2 {ratio} Normal [facility] Comment on above: Order Comment: Reaso n for Exam Elevated liver enzymes Performed By: #### E BV VCAIGG, RFXHEPCINTERP, CMVIGM, CMVIGG, HEPACUTE, ESTHER, EBV VCAIGM, LC FERRITIN, MITOM2 #### [facility] , #### LIBIA, FE and TIBC, CMP #### [address] ALP [Catalytic activity/Vol] 88 U/L Normal 32-92 [facility] Comment on above: Order Comment: Reaso n for Exam Elevated liver enzymes Performed By: #### E BV VCAIGG, RFXHEPCINTERP, CMVIGM, CMVIGG, HEPACUTE, ESTHER, EBV VCAIGM, LC FERRITIN, MITOM2 #### [facility] , #### LIBIA, FE and TIBC, CMP #### [place] [address] [place] ALT [Catalytic activity/Vol] 54 U/L Normal 10-60 [facility] Comment on above: Order Comment: Reaso n for Exam Elevated liver enzymes Performed By: #### E BV VCAIGG, RFXHEPCINTERP, CMVIGM, CMVIGG, HEPACUTE, ESTHER, EBV VCAIGM, LC FERRITIN, MITOM2 #### [facility] , #### LIBIA, FE and TIBC, CMP #### [facility] [address] [id number] [place] AST [Catalytic activity/Vol] 16 U/L Normal 10-42 [facility] Comment on above: Order Comment: Reaso n for Exam Elevated liver enzymes Performed By: #### E BV VCAIGG, RFXHEPCINTERP, CMVIGM, CMVIGG, HEPACUTE, ESTHER, EBV VCAIGM, LC FERRITIN, MITOM2 #### [facility] , #### LIBIA, FE and TIBC, CMP #### [address] Bilirubin [Mass/Vol] 0.9 mg/dL Normal 0.3-1.2 [facility] Comment on above: Order Comment: Reaso n for Exam Elevated liver enzymes Performed By: #### E BV VCAIGG, RFXHEPCINTERP, CMVIGM, CMVIGG, HEPACUTE, ESTHER, EBV VCAIGM, LC FERRITIN, MITOM2 #### [facility] , #### LIBIA, FE and TIBC, CMP #### [address] Calcium [Mass/Vol] 9.6 mg/dL Normal 8.2-10.2 [facility] Comment on above: Order Comment: Reaso n for Exam Elevated liver enzymes Performed By: #### E BV VCAIGG, RFXHEPCINTERP, CMVIGM, CMVIGG, HEPACUTE, ESTHER, EBV VCAIGM, LC FERRITIN, MITOM2 #### [facility] , #### LIBIA, FE and TIBC, CMP #### [facility] [address] Chloride [Moles/Vol] 104 mmol/L Normal 95-114 [facility] Comment on above: Order Comment: Reaso n for Exam Elevated liver enzymes Performed By: #### E BV VCAIGG, RFXHEPCINTERP, CMVIGM, CMVIGG, HEPACUTE, ESTHER, EBV VCAIGM, LC FERRITIN, MITOM2 #### [facility] , #### LIBIA, FE and TIBC, CMP #### [facility] [address] [place] [address] CO2 [Moles/Vol] 26.4 mmol/L Normal 22.0-30.0 [facility] [place] [facility] Comment on above: Order Comment: Reaso n for Exam Elevated liver enzymes Performed By: #### E BV VCAIGG, RFXHEPCINTERP, CMVIGM, CMVIGG, HEPACUTE, ESTHER, EBV VCAIGM, LC FERRITIN, MITOM2 #### [facility] , #### LIBIA, FE and TIBC, CMP #### [address] Creatinine [Mass/Vol] 0.74 mg/dL Normal 0.44-1.03 [facility] Comment on above: Order Comment: Reaso n for Exam Elevated liver enzymes Performed By: #### E BV VCAIGG, RFXHEPCINTERP, CMVIGM, CMVIGG, HEPACUTE, ESTHER, EBV VCAIGM, LC FERRITIN, MITOM2 #### [facility] , #### LIBIA, FE and TIBC, CMP #### [address] Estimated GFR ( Erendira > 60 Normal [facility] Comment on above: Order Comment: Reaso n for Exam Elevated liver enzymes Result Comment: GFR estimated reference range: According to KDOQI guidelines, <60 ml/min/1.73m2 is sufficient to diagnose a patient with chronic kidney disease. Performed By: #### E BV VCAIGG, RFXHEPCINTERP, CMVIGM, CMVIGG, HEPACUTE, ESTHER, EBV VCAIGM, LC FERRITIN, MITOM2 #### [facility] , #### LIBIA, FE and TIBC, CMP #### [facility] [address] [place] [address] [place] Estimated GFR (Non- Am > 60 Normal [facility] Comment on above: Order Comment: Reaso n for Exam Elevated liver enzymes Performed By: #### E BV VCAIGG, RFXHEPCINTERP, CMVIGM, CMVIGG, HEPACUTE, ESTHER, EBV VCAIGM, LC FERRITIN, MITOM2 #### [facility] , #### LIBIA, FE and TIBC, CMP #### [facility] [address] Globulin (S) [Mass/Vol] 3.3 g/dL Normal [facility] Comment on above: Order Comment: Reaso n for Exam Elevated liver enzymes Performed By: #### E BV VCAIGG, RFXHEPCINTERP, CMVIGM, CMVIGG, HEPACUTE, ESTHER, EBV VCAIGM, LC FERRITIN, MITOM2 #### [facility] , #### LIBIA, FE and TIBC, CMP #### [facility] [address] Glucose [Mass/Vol] 91 mg/dL Normal 70-100 [facility] Comment on above: Order Comment: Reaso n for Exam Elevated liver enzymes Result Comment: Cora om Glucose Reference Range is dependent on time and content of last meal. Glucose of more than 200 mg/dL in a nonstressed, ambulatory subject supports the diagnosis of Diabetes Mellitus. ADA recommended reference range Performed By: #### E BV VCAIGG, RFXHEPCINTERP, CMVIGM, CMVIGG, HEPACUTE, ESTHER, EBV VCAIGM, LC FERRITIN, MITOM2 #### [facility] , #### LIBIA, FE and TIBC, CMP #### [facility] [address] Potassium [Moles/Vol] 4.2 mmol/L Normal 3.5-5.1 [facility] Comment on above: Order Comment: Reaso n for Exam Elevated liver enzymes Performed By: #### E BV VCAIGG, RFXHEPCINTERP, CMVIGM, CMVIGG, HEPACUTE, ESTHER, EBV VCAIGM, LC FERRITIN, MITOM2 #### [facility] , #### LIBIA, FE and TIBC, CMP #### [address] Protein [Mass/Vol] 7.1 g/dL Normal 6.1-7.9 [facility] Comment on above: Order Comment: Reaso n for Exam Elevated liver enzymes Performed By: #### E BV VCAIGG, RFXHEPCINTERP, CMVIGM, CMVIGG, HEPACUTE, ESTHER, EBV VCAIGM, LC FERRITIN, MITOM2 #### [facility] , #### LIBIA, FE and TIBC, CMP #### [address] Sodium [Moles/Vol] 139 mmol/L Normal 136-146 [facility] Comment on above: Order Comment: Reaso n for Exam Elevated liver enzymes Performed By: #### E BV VCAIGG, RFXHEPCINTERP, CMVIGM, CMVIGG, HEPACUTE, ESTHER, EBV VCAIGM, LC FERRITIN, MITOM2 #### [facility] , #### LIBIA, FE and TIBC, CMP #### [place] [address] [place] Urea nitrogen [Mass/Vol] 8 mg/dL Low 9-23 [facility] Comment on above: Order Comment: Reaso n for Exam Elevated liver enzymes Performed By: #### E BV VCAIGG, RFXHEPCINTERP, CMVIGM, CMVIGG, HEPACUTE, ESTHER, EBV VCAIGM, LC FERRITIN, MITOM2 #### [facility] , #### LIBIA, FE and TIBC, CMP #### [address] EBV Ab VCA, IgGon 03-02-2021 EBV Ab VCA, IgG 75.3 High 0.0-17.9 [facility] Comment on above: Order Comment: Healt hcare Worker?: N Result Comment: Nega tive <18.0 Equivocal 18.0 - 21.9 Positive >21.9 Performed By: #### C [address] #### [facility] [address] [place] [address] [place] EBV Ab VCA, IgMon 03-02-2021 EBV Ab VCA, IgM <36.0 Normal 0.0-35.9 [facility] Comment on above: Order Comment: Healt hcare Worker?: N Result Comment: Nega tive <36.0 Equivocal 36.0 - 43.9 Positive >43.9 Performed at: [facility] [address] [id number] Criminal Justice Social Worker: Timoteo Devries PhD, Phone: [phone] Performed By: #### C [address] #### [place] [address] [place] Ferritinon 03-02-2021 Ferritin Sent to Ref Lab Low 11-306.8 [facility] Comment on above: Order Comment: Reaso n for Exam Elevated liver enzymes Result Comment: PERF ORMED BY: [place] [address] PATHOLOGIST ELECTRICAL FOREMAN DARIA HELMS M.D. Performed By: #### E BV VCAIGG, RFXHEPCINTERP, CMVIGM, CMVIGG, HEPACUTE, ESTHER, EBV VCAIGM, LC FERRITIN, MITOM2 #### [facility] , #### LIBIA, FE and TIBC, CMP #### [facility] [address] [place] [address] [place] Ferritin ([facility])on 022 Ferritin [Mass/Vol] 126 ng/mL Normal 15-150 [facility] Comment on above: Result Comment: Perf ormed at: [facility] [address] [id number] Criminal Justice Social Worker: Timoteo Devries PhD, Phone: [phone] PERFORMED BY: [address] [address] PATHOLOGIST ELECTRICAL FOREMAN DARIA HELMS M.D. Performed By: #### E BV VCAIGG, RFXHEPCINTERP, CMVIGM, CMVIGG, HEPACUTE, ESTHER, EBV VCAIGM, LC FERRITIN, MITOM2 #### [facility] , #### LIBIA, FE and TIBC, CMP #### [facility] [address] [place] [address] Hepatitis Acute Panelon 01-0 HBsAg Screen Negative Normal Negative [facility] Comment on above: Order Comment: Reaso n for Exam Elevated liver enzymes Performed By: #### E BV VCAIGG, RFXHEPCINTERP, CMVIGM, CMVIGG, HEPACUTE, ESTHER, EBV VCAIGM, LC FERRITIN, MITOM2 #### [facility] , #### LIBIA, FE and TIBC, CMP #### [facility] [address] [place] [address] Hepatitis A Antibody IgM Negative Normal Negative [facility] Comment on above: Order Comment: Reaso n for Exam Elevated liver enzymes Performed By: #### E BV VCAIGG, RFXHEPCINTERP, CMVIGM, CMVIGG, HEPACUTE, ESTHER, EBV VCAIGM, LC FERRITIN, MITOM2 #### [facility] , #### LIBIA, FE and TIBC, CMP #### [facility] [address] [place] [address] Hepatitis B Core Antibody IgM Negative Normal Negative [facility] Comment on above: Order Comment: Reaso n for Exam Elevated liver enzymes Performed By: #### E BV VCAIGG, RFXHEPCINTERP, CMVIGM, CMVIGG, HEPACUTE, ESTHER, EBV VCAIGM, LC FERRITIN, MITOM2 #### [facility] , #### LIBIA, FE and TIBC, CMP #### [facility] [address] [place] [address] Hepatitis C Virus Antibody 0.1 Normal 0.0-0.9 [facility] Comment on above: Order Comment: Reaso n for Exam Elevated liver enzymes Performed By: #### E BV VCAIGG, RFXHEPCINTERP, CMVIGM, CMVIGG, HEPACUTE, ESTHER, EBV VCAIGM, LC FERRITIN, MITOM2 #### [facility] , #### LIBIA, FE and TIBC, CMP #### [facility] [address] [place] [address] Interpretation Hepatitis Con 03-02-2021 Interpretation Hepatitis C Normal . [facility] Comment on above: Order Comment: Healt hcare Worker?: N Result Comment: Nega tive Not infected with HCV, unless recent infection is suspected or other evidence exists to indicate HCV infection. Performed at: - [facility] [id number] Criminal Justice Social Worker: Timoteo Devries PhD, Phone: [phone] PERFORMED BY: [place] [address] PATHOLOGIST ELECTRICAL FOREMAN DARIA HELMS M.D. Performed By: #### C OVID-19 [facility] #### [address] Iron and TIBC Profileon % Iron Saturation 19.0 % Low 20-50 [facility] Comment on above: Order Comment: Reaso n for Exam Elevated liver enzymes Performed By: #### E BV VCAIGG, RFXHEPCINTERP, CMVIGM, CMVIGG, HEPACUTE, ESTHER, EBV VCAIGM, LC FERRITIN, MITOM2 #### [facility] , #### LIBIA, FE and TIBC, CMP #### [facility] [address] [place] [address] Iron [Mass/Vol] 74 ug/dL Normal 40-150 [facility] Comment on above: Order Comment: Reaso n for Exam Elevated liver enzymes Performed By: #### E BV VCAIGG, RFXHEPCINTERP, CMVIGM, CMVIGG, HEPACUTE, ESTHER, EBV VCAIGM, LC FERRITIN, MITOM2 #### [facility] , #### LIBIA, FE and TIBC, CMP #### [facility] [address] Total Iron Binding Capacity 384 ug/dL Normal 255-450 [facility] Comment on above: Order Comment: Reaso n for Exam Elevated liver enzymes Performed By: #### E BV VCAIGG, RFXHEPCINTERP, CMVIGM, CMVIGG, HEPACUTE, ESTHER, EBV VCAIGM, LC FERRITIN, MITOM2 #### [facility] , #### LIBIA, FE and TIBC, CMP #### [facility] [address] Transferrin [Mass/Vol] 274 mg/dL Normal 180-380 [facility] Comment on above: Order Comment: Reaso n for Exam Elevated liver enzymes Performed By: #### E BV VCAIGG, RFXHEPCINTERP, CMVIGM, CMVIGG, HEPACUTE, ESTHER, EBV VCAIGM, LC FERRITIN, MITOM2 #### [facility] , #### LIBIA, FE and TIBC, CMP #### [facility] [address] Mitochondrial (M2) Antibodyo n 03-02-2021 Mitochondrial (M2) Antibody <20.0 Normal 0.0-20.0 [facility] Comment on above: Order Comment: Healt hcare Worker?: N Result Comment: Nega tive 0.0 - 20.0 Equivocal 20.1 - 24.9 Positive >24.9 Mitochondrial (M2) Antibodies are found in 90-96% of patients with primary biliary cirrhosis. Performed at: - [facility] [id number] Criminal Justice Social Worker: Timoteo Devries PhD, Phone: [phone] Performed By: #### C OVID-19 [facility] #### [address] US Liveron 03-02-2021 US Liver CLINICAL [...] by Teresa Blackmon on 03/02/2021 1005 Normal [facility] Complete Blood Count with Au to Diffon 02-21-2021 Basophils (Bld) [#/Vol] 0.05 10*3/uL Normal 0.00-0.20 [facility] Comment on above: Performed By: #### C BCAD, CMP, TSH reflex FT4 #### [facility] [address] [place], [place] [id number] Basophils/100 WBC (Bld) 0.5 % Normal [facility] Comment on above: Performed By: #### C BCAD, CMP, TSH reflex FT4 #### [facility] [address] [place], [place] [id number] Eosinophils (Bld) [#/Vol] 0.24 10*3/uL Normal 0.02-0.50 [facility] Comment on above: Performed By: #### C BCAD, CMP, TSH reflex FT4 #### [facility] [address] [place], [place] [id number] Eosinophils/100 WBC (Bld) 2.2 % Normal [facility] Comment on above: Performed By: #### C BCAD, CMP, TSH reflex FT4 #### [facility] [address] [place], [place] [id number] Erythrocyte distribution width (RBC) [Ratio] 14.2 % Normal 11.0-15.0 [facility] Comment on above: Performed By: #### C BCAD, CMP, TSH reflex FT4 #### [facility] [address] [place], [place] [id number] Hematocrit (Bld) [Volume fraction] 44.9 % Normal 35.0-47.0 [facility] Comment on above: Performed By: #### C BCAD, CMP, TSH reflex FT4 #### [facility] [address] [place], [place] [id number] Hemoglobin (Bld) [Mass/Vol] 13.2 g/dL Normal 11.6-15.5 [facility] Comment on above: Performed By: #### C BCAD, CMP, TSH reflex FT4 #### [facility] [address] [place], [place] [id number] Lymphocytes (Bld) [#/Vol] 2.0 10*3/uL Normal 0.9-3.9 [facility] Comment on above: Performed By: #### C BCAD, CMP, TSH reflex FT4 #### [facility] [address] [place], [place] [id number] Lymphocytes/100 WBC (Bld) 18.3 % Normal [facility] Comment on above: Performed By: #### C BCAD, CMP, TSH reflex FT4 #### [facility] [address] [place], [place] [id number] MCH (RBC) [Entitic mass] 29.5 pg Normal 27.0-33.0 [facility] Comment on above: Performed By: #### C BCAD, CMP, TSH reflex FT4 #### [facility] [address] [place], [place] [id number] MCHC (RBC) [Mass/Vol] 29.4 g/dL Low 32.0-36.0 [facility] Comment on above: Performed By: #### C BCAD, CMP, TSH reflex FT4 #### [facility] [address] [place], [place] [id number] MCV (RBC) [Entitic vol] 100 fL Normal 80-100 [facility] Comment on above: Performed By: #### C BCAD, CMP, TSH reflex FT4 #### [facility] [address] [place], [place] [id number] Monocytes (Bld) [#/Vol] 0.6 10*3/uL Normal 0.2-0.9 [facility] [employer] Comment on above: Performed By: #### C BCAD, CMP, TSH reflex FT4 #### [facility] [address] [place], [place] [id number] Monocytes/100 WBC (Bld) 5.7 % Normal [facility] Comment on above: Performed By: #### C BCAD, CMP, TSH reflex FT4 #### [facility] [address] [place], [place] [id number] Neutrophils (Bld) [#/Vol] 8.0 10*3/uL High 1.5-7.8 [facility] Comment on above: Performed By: #### C BCAD, CMP, TSH reflex FT4 #### [facility] [address] [place], [place] [id number] Neutrophils/100 WBC (Bld) 72.9 % Normal [facility] Comment on above: Performed By: #### C BCAD, CMP, TSH reflex FT4 #### [facility] [address] [place], [place] [id number] Platelet mean volume (Bld) [Entitic vol] 12.80 fL High 7.50-12.50 [facility] Comment on above: Performed By: #### C BCAD, CMP, TSH reflex FT4 #### [facility] [address] [place], [place] [id number] Platelets (Bld) [#/Vol] 376 10*3/uL Normal 140-400 [facility] Comment on above: Performed By: #### C BCAD, CMP, TSH reflex FT4 #### [facility] [address] [place], [place] [id number] RBC (Bld) [#/Vol] 4.47 10*6/uL Normal 3.90-5.20 [facility] Comment on above: Performed By: #### C BCAD, CMP, TSH reflex FT4 #### [facility] [address] [place], [place] [id number] RDW-SD 52.3 fL High 37.0-50.0 [facility] Comment on above: Performed By: #### C BCAD, CMP, TSH reflex FT4 #### [facility] [address] [place], [place] [id number] WBC (Bld) [#/Vol] 11.0 10*3/uL Normal 3.8-11.0 [facility] Comment on above: Performed By: #### C BCAD, CMP, TSH reflex FT4 #### [facility] [address] [place], [place] [id number] Comprehensive Metabolic Pane madison 02-21-2021 Albumin [Mass/Vol] 4.4 g/dL Normal 3.6-5.1 [facility] Comment on above: Performed By: #### C BCAD, CMP, TSH reflex FT4 #### [facility] [address] [place], [place] [id number] Albumin/Globulin [Mass ratio] 1.3 {ratio} Normal 1.0-2.5 [facility] Comment on above: Performed By: #### C BCAD, CMP, TSH reflex FT4 #### [facility] [address] [place], [place] [id number] ALP [Catalytic activity/Vol] 193 U/L High 35-119 [facility] Comment on above: Performed By: #### C BCAD, CMP, TSH reflex FT4 #### [facility] [address] [place], [place] [id number] ALT [Catalytic activity/Vol] 756 U/L High 6-33 [facility] Comment on above: Result Comment: 01/25 Female reference range changed. Performed By: #### C BCAD, CMP, TSH reflex FT4 #### [facility] [address] [place], [place] [id number] Anion gap [Moles/Vol] 20 mmol/L Normal 12-20 [facility] Comment on above: Result Comment: Effe ctive 03/02/2019 reference range changed. Performed By: #### C BCAD, CMP, TSH reflex FT4 #### [facility] [address] [place], [place] [id number] AST [Catalytic activity/Vol] 174 U/L High 9-34 [facility] Comment on above: Result Comment: Repe ated to verify. Performed By: #### C BCAD, CMP, TSH reflex FT4 #### [facility] [address] [place], [place] [id number] Bilirubin [Mass/Vol] 0.31 mg/dL Normal 0.30-1.20 [facility] Comment on above: Performed By: #### C BCAD, CMP, TSH reflex FT4 #### [facility] [address] [place], [place] [id number] BUN/CREA 15 Ratio Normal 6-22 [facility] Comment on above: Performed By: #### C BCAD, CMP, TSH reflex FT4 #### [facility] [address] [place], [place] [id number] Calcium [Mass/Vol] 10.4 mg/dL High 8.6-10.2 [facility] Comment on above: Performed By: #### C BCAD, CMP, TSH reflex FT4 #### [facility] [address] [place], [place] [id number] Chloride [Moles/Vol] 103 mmol/L Normal 98-107 [facility] Comment on above: Performed By: #### C BCAD, CMP, TSH reflex FT4 #### [facility] [address] [place], [place] [id number] CO2 [Moles/Vol] 23 mmol/L Normal 20-31 [facility] Comment on above: Performed By: #### C BCAD, CMP, TSH reflex FT4 #### [facility] [address] [place], [place] [id number] Creatinine [Mass/Vol] 0.7 mg/dL Normal 0.6-1.4 [facility] Comment on above: Performed By: #### C BCAD, CMP, TSH reflex FT4 #### [facility] [address] [place], [place] [id number] eGFRAA 112 mL/min/1.73m2 Normal >60 [facility] Comment on above: Performed By: #### C BCAD, CMP, TSH reflex FT4 #### [facility] [address] [place], [place] [id number] eGFRNAA 92 mL/min/1.73m2 Normal >60 [facility] Comment on above: Performed By: #### C BCAD, CMP, TSH reflex FT4 #### [facility] [address] [place], [place] [id number] Globulin (S) [Mass/Vol] 3.5 g/dL Normal 1.9-3.7 [facility] Comment on above: Performed By: #### C BCAD, CMP, TSH reflex FT4 #### [facility] [address] [place], [place] [id number] Glucose [Mass/Vol] 100 mg/dL High 65-99 [facility] Comment on above: Result Comment: For FASTING Glucose --- ADA reference ranges: Normal 65-99 mg/dl Prediabetes 100-125 Diabetes >/= 126 Performed By: #### C BCAD, CMP, TSH reflex FT4 #### [facility] [address] [place], [place] [id number] Potassium [Moles/Vol] 4.1 mmol/L Normal 3.5-5.5 [facility] Comment on above: Performed By: #### C BCAD, CMP, TSH reflex FT4 #### [facility] [address] [place], [place] [id number] Protein [Mass/Vol] 7.9 g/dL Normal 6.1-8.1 [facility] Special[facility] Comment on above: Performed By: #### C BCAD, CMP, TSH reflex FT4 #### [facility] [address] [place], [place] [id number] Sodium [Moles/Vol] 141 mmol/L Normal 135-146 [facility] Specialist Comment on above: Performed By: #### C BCAD, CMP, TSH reflex FT4 #### [facility] [address] [place], [place] [id number] Urea nitrogen [Mass/Vol] 11 mg/dL Normal 7-25 [facility] Comment on above: Performed By: #### C BCAD, CMP, TSH reflex FT4 #### [facility] [address] [place], [place] [id number] TSH w/ Reflex to Free T4on 04-24-2020 TSH 1.070 uIU/mL Normal 0.400-4.500 [facility] [employer] Comment on above: Performed By: #### C BCAD, CMP, TSH reflex FT4 #### [facility] [address] [facility] [place] [place] [id number] US Thyroidon 02-21-2021 US Thyroid CLINICAL HISTORY: Abnormal CT. COMPARISON: None available. TECHNIQUE: Ultrasound of the thyroid was performed with a regional survey. Reference: ACR Thyroid, Imaging Recording and Data System (TI-RADS): White paper of the ACR TI-RADS committee. Journal of the [place] [employer]: Volume 14, issue , July 11 pages 587-595. FINDINGS: The thyroid [...] by Frank Adams on 02/22/2021 0933 Normal [facility] Covid-19 PCR (CVDTB)on 12-27 SARS-CoV-2 (COVID-19) RNA GILLES+probe Ql (Unsp spec) Not detected Normal NOT DETECTED [facility] Comment on above: Result Comment: This test is not yet approved or cleared by the [place] FDA. When there are no FDA-approved or cleared tests available, and other criteria are met, FDA can make tests available under an emergency access mechanism called an Emergency Use Authorization (EUA). The EUA for this test is supported by the Sr. [employer] Administrator of Health and Human Service's (HHS's) declaration [...] consistent with SARS-CoV-2. Performed By: #### C [facility] #### [facility] [address] [address] [address] Shelton Brewster [facility] 21 SARS-CoV-2 (COVID-19) RNA GILLES+probe Ql (Unsp spec) Detected Critically abnormal Not Detected [facility] Comment on above: Order Comment: Reaso n for Exam Loss of taste Healthcare Worker?: N Result Comment: Sulema ents who have a positive COVID-19 test result may now have treatment options. Treatment options are available for patients with mild to moderate symptoms and for hospitalized patients. Visit our website at [email or web address] for resources and information. This nucleic acid amplification test was developed and its performance characteristics determined by [employer]. Nucleic acid amplification tests include RT- PCR [...] detected) result in this assay. PERFORMED BY: [facility] [address] PATHOLOGIST ELECTRICAL FOREMAN DARIA HELMS M.D. Performed By: #### C ORONAVIRUS #### [facility] , PAP ACOG PANEL 2: 30 to 65on 09-20-2020 . . Normal [facility] Comment on above: Result Comment: Perf ormed at: WB Performed By: #### 4 [id number] #### [facility] [address] [address] Navi Vega Age Gdln ACOG Testing 30-65 Normal [facility] Comment on above: Performed By: #### 4 [id number] #### [facility] [address] [address] Navi Vega DIAGNOSIS: Comment Normal [facility] Comment on above: Result Comment: NEGA TIVE FOR INTRAEPITHELIAL LESION OR MALIGNANCY. Performed at: WB Performed By: #### 4 [id number] #### [facility] [address] [address] Navi Vega HPV Aptima Positive Abnormal Negative [facility] Comment on above: Result Comment: This nucleic acid amplification test detects fourteen high-risk HPV types (16,18,31,33,35,39,45,51,52,56,58,59,66,68) without differentiation. Performed at: =G Performed By: #### 4 [id number] #### [facility] [address] [address] Navizaina [place] HPV Genotype 16 Negative Normal Negative [facility] Comment on above: Result Comment: Perf ormed at: =G Performed By: #### 4 [id number] #### [facility] [address] [address] Navi Silvia HPV Genotype 18,45 Negative Normal Negative [facility] Comment on above: Result Comment: Perf ormed at: =G Performed By: #### 4 [id number] #### [facility] [address] [id number] Navizaina Vega Methodology: CTIM Normal [facility] Comment on above: Result Comment: The Thin Prep(R) Publicity Consultant was unable to read this specimen. Therefore a manual review was performed. Performed at: WB Performed By: #### 4 [id number] #### [facility] [address] [place] [address] Navi Vega Note: Comment Normal [facility] Comment on above: Result Comment: The Pap smear is a screening test designed to aid in the detection of premalignant and malignant conditions of the uterine cervix. It is not a diagnostic procedure and should not be used as the sole means of detecting cervical cancer. Both false-positive and false-negative reports do occur. . Performed at: WB Performed By: #### 4 [id number] #### [facility] [address] [place] [address] Navi Vega Performed by: Comment Normal [facility] Comment on above: Result Comment: Almas Cramer, Returned Telephone Equipment Appraiser (ASCP) Performed at: WB Performed By: #### 4 [id number] #### [facility] [address] [place] [address] Navi Vega Specimen adequacy: Comment Normal [facility] Comment on above: Result Comment: Sati sfactory for evaluation. Endocervical and/or squamous metaplastic cells (endocervical component) are present. Performed at: WB Performed By: #### 4 [id number] #### [facility] [address] [place] [address] Navi Vega VAGINITIS/VAGINOSIS DNA PROB Jesse 09-16-2020 Kathy species Negative Normal Negative [facility] Comment on above: Performed By: #### V AGINT #### [facility] [address] [place] [address] Navi Vega Gardnerella vaginalis Positive Abnormal Negative [facility] Comment on above: Performed By: #### V AGINT #### [facility] [address] [place] [address] Navi Vega Trichomonas vaginalis Negative Normal Negative [facility] Comment on above: Performed By: #### V AGINT #### [facility] [address] [place] [address] Navi Vega CHLAMYDIA/GONOCOCCUS GILLES (SW AB/URINE/PAPon 08-22-2020 Chlamydia trachomatis, GILLES Negative Normal Negative [facility] Comment on above: Performed By: #### C T/NGNA #### [facility] [address] [place] [address] Navi Vega Neisseria gonorrhoeae, GILLES Negative Normal Negative [facility] Comment on above: Performed By: #### C T/NGNA #### [facility] [address] [place] [address] Navi Vega VAGINITIS/VAGINOSIS DNA PROB Jesse 08-21-2020 Kathy species Negative Normal Negative [facility] Comment on above: Performed By: #### V AGINT #### [facility] [address] [place] [address] Navi Vega Gardnerella vaginalis Negative Normal Negative [facility] Comment on above: Performed By: #### V AGINT #### [facility] [address] [place] [address] Navi Vega Trichomonas vaginalis Positive Abnormal Negative [facility] Comment on above: Performed By: #### V AGINT #### [facility] [address] [place] [address] Navi Vega HCG,Urineon 06-29-2020 Beta HCG ( test) Ql (U) Negative Normal [facility] Comment on above: Result Comment: PERF ORMED BY: [place] [address] PATHOLOGIST ELECTRICAL FOREMAN DARIA HELMS M.D. Performed By: #### U HCG #### [address] 06-29-2020 L Specimen: [id number] Received: 06/29/20 Status: DORITA Hickman Num: [id number] Spec Type: Surgical Subm Dr: Jayson Benson MD Tissues: A Varicose Vein (L LEG VARICOSE VEINS) Procedures: HE Stain, Gross/Micro L3 Patient Age/Sex Location Account Attending Physician Daysi Medina 39/F [place] [id number] Jayson Benson MD SPEC NUM: [id number] RECD: 06/29/20 STATUS: DORITA HICKMAN NUM: [id number] BENJAMÍN: 06/29/20- DR: Jayson Benson MD ENTERED: 06/29/[address] [facility] [address]: SPEC TYPE: Surgical DEPT: S ENTERED BY: [id number] RECV BY: [id number] ORDERED: HE Stain, Gross/Micro L3 ORDERED: HE Stain, Gross/Micro L3 Pathological Diagnosis Varicose veins, left leg, phlebectomy: - Consistent with varicose veins Clinical Information Phlebectomy Gross Description Received in formalin labeled with the patient's name, number and varicose veins is a 3.5 x 3.1 x 1 cm aggregate of multiple stewart-pink cylindrical tissue fragments. Cop Examiner sections are submitted in one cassette labeled A1. (THEO/JS) Microscopic Description One glass slide with H E stained material has been examined. The microscopic findings support the above pathologic diagnosis. [id number] Specimen: [id number] Received: 06/29/20 Status: DORITA Vick Num: [id number] Spec Type: Surgical Subm Dr: Jayson Benson MD Tissues: A Varicose Vein (L LEG VARICOSE VEINS) Procedures: HE Stain, Gross/Micro L3 Patient: CarolDaysi [id number] (Continued) Signed (signature on file) Daria Helms MD 06/30/20 1419 Normal [facility] SARS-CoV-2 (COVID-19) RNA GILLES+probe Ql (Unsp spec) Negative Normal Negative [facility] Comment on above: Order Comment: Healt hcare Worker?: N Result Comment: Test ing for SARS-CoV-2 by RT-PCR This test was developed and its performance characteristics determined by [employer]) and validated at the [facility]. This test has not been FDA cleared [...] is terminated or revoked sooner. PERFORMED BY: [place] [address] PATHOLOGIST ELECTRICAL FOREMAN DARIA HELMS M.D. Performed By: #### C OVID-19 [facility] #### [address] US venous duplex LE BIon US venous duplex LE [facility] Main [place] [address] [place] [address] Ultrasound Report Signed Patient: Daysi Medina MR#: [id number] [birth year] : 1980 Acct:[id number] Age/Sex: 39 / F ADM Date: 06/14/20 [facility] Room: Type: DEP CLI Attending Dr: Jayson Benson MD Ordering Provider: [...] the knee were becomes 7 mm. Mild radio repairer domestic incompetence is noted but none of them [...] Jayson Benson M.D.06/20/2020 8:49 AM Dictation Location: [place] [address] Tech: Angelina Pennington Transcribed By: MADY 06/20/2049 Dictated By: Jayson Benson MD 06/20/2046 Signed By: 06/20/2049 Normal [facility] Vital Signs Date Time Vital Sign Value Performing Clinician Facility 12-09-2023 16:34-0400 Body height 165.1 cm [facility] 12-09-2023 16:34-0400 Body mass index (BMI) [Ratio] 36.4 kg/m2 [facility] 12-09-2023 16:34-0400 Body temperature 97.8 [degF] [facility] 12-09-2023 16:34-0400 Body weight 99.33 kg [facility] 12-09-2023 16:34-0400 Diastolic blood pressure 76 mm[Hg] [facility] 12-09-2023 16:34-0400 Heart rate 91 /min [facility] 12-09-2023 16:34-0400 Respiratory rate 18 /min [facility] 12-09-2023 16:34-0400 SaO2% (BldA) [Mass fraction] 99 % [facility] 12-09-2023 16:34-0400 Systolic blood pressure 137 mm[Hg] [facility] 11-26-2023 09:18-0400 Body height 167.6 cm Kalpana LFORIAN Work Phone: [facility] 11-26-2023 09:18-0400 Body mass index (BMI) [Ratio] 35.83 kg/m2 Kalpana FLORIAN Work Phone: [facility] 11-26-2023 09:18-0400 Body weight 100.7 kg Kalpana FLORIAN Work Phone: [facility] 11-26-2023 09:18-0400 Diastolic blood pressure 80 mm[Hg] Kalpana FLORIAN Work Phone: [facility] 11-26-2023 09:18-0400 Systolic blood pressure 124 mm[Hg] Kalpana FLORIAN Work Phone: [facility] 05-15-2023 10:10-0400 Body height 165.1 cm [facility] 05-15-2023 10:10-0400 Body mass index (BMI) [Ratio] 37 kg/m2 [facility] 05-15-2023 10:10-0400 Body temperature 98.4 [degF] [facility] 05-15-2023 10:10-0400 Body weight 100.81 kg [facility] 05-15-2023 10:10-0400 Diastolic blood pressure 90 mm[Hg] [facility] 05-15-2023 10:10-0400 Heart rate 90 /min [facility] 05-15-2023 10:10-0400 Respiratory rate 18 /min [facility] 05-15-2023 10:10-0400 SaO2% (BldA) [Mass fraction] 97 % [facility] 05-15-2023 10:10-0400 Systolic blood pressure 132 mm[Hg] [facility] 04-11-2023 15:47-0500 Body height 165.1 cm [facility] 04-11-2023 15:47-0500 Body mass index (BMI) [Ratio] 36.6 kg/m2 [facility] 04-11-2023 15:47-0500 Body temperature 99.4 [degF] [facility] 04-11-2023 15:47-0500 Body weight 99.79 kg [facility] 04-11-2023 15:47-0500 Heart rate 90 /min [facility] 04-11-2023 15:47-0500 Respiratory rate 16 /min [facility] 04-11-2023 15:49-5179 SaO2% (BldA) [Mass fraction] 98 % [facility] Encounters Encounter Date Encounter Type Care Provider Facility Start: 01-01-2024 End: 01-01-2024 ambulatory GETACHEW ISLAS Not Available Start: 12-09-2023 End: 12-09-2023 ambulatory [facility] Work Phone: Start: 12-09-2023 End: 12-09-2023 Patient encounter procedure [facility] Physician [facility] [place] Work Phone: Start: 12-02-2023 End: 12-02-2023 Clinisync Result Encounter Generic External Data Provider [facility] Unsolicited Start: 12-02-2023 End: 12-02-2023 Clinisync Result Encounter Generic External Data Provider [facility] External Department Unsolicited Start: 11-26-2023 End: 11-26-2023 Office outpatient visit 10 minutes Nixon Ambriz DO Work Phone: [facility] Comment on above: 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); S/P hip replacement, right Start: 11-26-2023 End: 11-26-2023 ambulatory NIXON AMBRIZ Not Available Start: 11-26-2023 End: 11-26-2023 Bamboo flowsheet Kalpana FLORIAN Work Phone: [facility] Start: 11-26-2023 End: 12-03-2023 Bamboo flowsheet Kalpana FLORIAN Work Phone: [facility] Start: 11-26-2023 End: 12-03-2023 Clinisync Result Encounter Generic External Data Provider [facility] External Department Unsolicited Start: 11-26-2023 End: 11-26-2023 Patient encounter procedure Kalpana FLORIAN Work Phone: [facility] Start: 11-26-2023 End: 11-26-2023 Periodic preventive med est patient 40-64yrs Kalpana FLORIAN Work Phone: [facility] Comment on above: Breast cancer screen ing by mammogram; Well woman exam with routine gynecological exam; Menorrhagia with regular cycle Start: 11-26-2023 End: 11-26-2023 ambulatory KALPANA ISSA Not Available Start: 05-28-2023 End: 05-28-2023 ambulatory NIXON AMBRIZ Not Available Start: 05-15-2023 End: 05-15-2023 ambulatory [facility] Work Phone: Start: 05-15-2023 End: 05-15-2023 Patient encounter procedure [facility] [place] Work Phone: Start: 04-11-2023 End: 04-11-2023 ambulatory [facility] Work Phone: Start: 04-11-2023 End: 04-11-2023 Patient encounter procedure [facility] [place] Work Phone: Start: 02-26-2023 End: 02-26-2023 ambulatory [...] (routine) without abnormal findings DR GETACHEW ISLAS [facility] Start: 09-14-2020 End: 09-14-[address] GETACHEW ISLAS Facility:[facility] Start: 08-19-2020 End: 08-19-[address] AMANDA WEST Facility:[facility] Procedures Date Procedure Procedure Detail Performing Clinician Start: 12-02-2023 ALL CBC WITH AUTO DIFF Kalpana FLORIAN Work Phone: Start: 12-02-2023 MLR HEMOGLOBIN A1C Kalpana FLORIAN Work Phone: Start: 11-26-2023 Radex hip unilateral with pelvis 2-3 views Nixon Ambriz DO Work Phone: Start: 11-26-2023 IGP,APTIMA HPV,AGE GDLN Kalpana FLORIAN Work Phone: Start: 04-11-2023 COVID/Influenza Anti gen (POC) Start: 04-11-2023 Quick Strep (POC) Start: 01-29-2023 Mammography Kalpana FLORIAN Work Phone: Plan of Treatment Date Care Activity Detail Author Start: 11-24-2024 End: 11-24-2024 Patient encounter procedure 11/24/2024 2:45 PM EDT Office Visit [facility] [address] [place] [id number] Nixon Ambriz, DO [address] [place] [address] [facility] Start: 02-11-2024 End: 02-11-2024 Patient encounter procedure 02/11/2024 2:45 PM EST Office Visit [facility] [address] [place] [address] Nixon Ambriz, DO [address] [place] [address] [facility] Start: 01-31-2024 End: 01-25-2025 MG Breast - bilateral Screening Bilateral screening mammogram Imaging Routine Breast cancer screening by mammogram Expected: 01/31/2024 (Approximate), Expires: 01/25/2025 [facility] Work Phone: Comment on above: Expected: 01/31/2024 (Approximate), Expires: 01/25/2025 Start: 01-30-2024 Screening for malignant neoplasm of breast Mammogram [facility] Start: 01-06-2024 End: 01-06-2024 Patient encounter procedure 01/06/2024 3:30 PM EST Procedure Visit [facility] [address] [place] [address] [place] [address] Getachew Islas, [address] [place] [address] [facility] Start: 11-26-2023 End: 11-25-2024 aPTT in Blood by Coagulation assay APTT Lab Routine Menorrhagia with regular cycle Expected: 11/26/2023 (Approximate), Expires: 11/25/2024 [facility] Comment on above: Expected: 11/26/2023 (Approximate), Expires: 11/25/2024 Start: 11-26-2023 End: 11-25-2024 US for US PELVIS-TRANSVAG IF INDICATED Imaging Routine Menorrhagia with regular cycle Expected: 11/26/2023 (Approximate), Expires: 11/25/2024 [facility] Comment on above: Expected: 11/26/2023 (Approximate), Expires: 11/25/2024 Start: 11-26-2023 End: 11-26-2023 Patient encounter procedure [facility] Comment on above: Arrived Start: 10-27-2023 Influenza vaccination Influenza Vacc ine (#1) [facility] Start: 2012 Screening for malignant neoplasm of cervix [facility] Start: 11-16-2003 Screening for malignant neoplasm of cervix Pap Smear [facility] CBC W Auto Differential panel - Blood CBC and differential Lab Routine Menorrhagia with regular cycle Ordered: 11/26/2023 [facility] Comment on above: Ordered: 11/26/2023 hCG, quantitative, hCG, quantitative, Lab Routine Menorrhagia with regular cycle Ordered: 11/26/2023 [facility] Comment on above: Ordered: 11/26/2023 Hemoglobin A1c/Hemoglobin.total in Blood Hemoglobin A1c Lab Routine Menorrhagia with regular cycle Ordered: 11/26/2023 [facility] Comment on above: Ordered: 11/26/2023 Prothrombin time (PT ) in Blood by Coagulation assay Protime-INR Lab Routine Menorrhagia with regular cycle Ordered: 11/26/2023 [facility] Comment on above: Ordered: 11/26/2023 THIN PREP TIS PAP AN D HR HPV DNA THIN PREP TIS PAP AND HR HPV DNA Pathology and Cytology Routine Well woman exam with routine gynecological exam Ordered: 11/26/2023 [facility] Comment on above: Ordered: 11/26/2023 Thyrotropin [Units/volume] in Serum or Plasma TSH Lab Routine Menorrhagia with regular cycle Ordered: 11/26/2023 [facility] Comment on above: Ordered: 11/26/2023 Thyroxine (T4) free [Mass/volume] in Serum or Plasma T4, free Lab Routine Menorrhagia with regular cycle Ordered: 11/26/2023 [facility] Comment on above: Ordered: 11/26/2023 Immunizations Immunization Date Immunization Notes Care Provider Fa [facility] 11-02-2018 influenza, injectabl e, quadrivalent, preservative free Kalpana FLORIAN Work Phone: [facility] 11-02-2018 influenza virus vacc ine, unspecified formulation Kalpana FLORIAN Work Phone: [facility] 11-01-2018 influenza, injectabl e, quadrivalent, preservative free Kalpana FLORIAN Work Phone: [facility] 08-19-2014 tetanus toxoid, redu shmuel diphtheria toxoid, and acellular pertussis vaccine, adsorbed Kalpana FLORIAN Work Phone: [facility] 08-18-2014 tetanus toxoid, redu shmuel diphtheria toxoid, and acellular pertussis vaccine, adsorbed Kalpana FLORIAN Work Phone: [facility] Payers Date Payer Category Payer Unknown BCBS BCBS [id number] 2017-Present [phone] [address] [place] [address] [id number] 1982 Unknown [id number] [id number] 1982 Unknown [id number] 2.16.840.1.724845.3.579.2.593 1982 Unknown [id number] 2.16.840.1.570884.3.579.2.593 1982 Unknown [id number] 2.16.840.1.303533.3.579.2.1258 1982 Unknown [id number] 2.16.840.1.688693.3.579.2.1258 1982 Unknown [id number] 2.16.840.1.125152.3.579.2.1258 1982 Unknown [id number] 2.16.840.1.582355.3.579.2.1258 1982 Unknown [id number] 2.16.840.1.374092.3.579.2.1258 1982 Unknown [id number] 2.16.840.1.580720.3.579.2.1258 1982 Unknown [id number] 2.16.840.1.621879.3.579.2.1258 1982 Unknown [id number] 2.16.840.1.227989.3.579.2.1258 1982 Unknown [id number] 2.16.840.1.020739.3.579.2.1258 1982 Unknown [id number] 2.16.840.1.774665.3.579.2.1258 1982 Unknown [id number] 2.16.840.1.171731.3.579.2.1258 1982 Unknown [id number] 2.16.840.1.346156.3.579.2.1258 1982 Unknown [id number] 2.16.840.1.093155.3.579.2.9 1959 Unknown [id number] Self-pay Self Pay [id number] Social History Date Type Detail Facility Start: 06-29-2020 End: 12-09-2023 Tobacco smoking status DEIS Ex-smoker (finding) [facility] Start: 1980 Sex Assigned At Female [facility] History of tobacco use Current smoker [facility] [...] to any clubs or organizations such as anabaptism groups, unions, fraternal or athletic groups, or [...] History of Present illness Narrative 11-26-2023 Nixon Ambriz DO - 11/26/2023 2:45 PM EDT Note [...] Diagnosis Date Anxiety Arthritis Bipolar 2 disorder ([facility]) Depression ([facility]) Osteoporosis ([facility]) 11/2020 ALLERGIES: No Known Allergies VITALS: Visit [...] Problems Diagnosis Date Noted Bipolar 2 disorder ([facility]) 11/07/2022 Osteoarthritis of left hip 11/07/2022 Status post total replacement of right hip 11/07/2022 Insomnia 11/07/2022 Thyroid nodule ([facility]) 11/07/2022 Bipolar affective disorder, currently depressed, moderate ([facility]) 05/18/2020 Class 2 obesity 01/03/2021 Difficulty walking 01/30/2021 Disability of walking 11/08/2022 Loss of taste 01/10/2021 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 11/08/2022 Arthritis of left hip 12/21/2020 Primary localized osteoarthritis of left hip 01/31/2021 Primary localized osteoarthritis of right hip 12/12/2022 Resolved Ambulatory Problems Diagnosis Date Noted No Resolved Ambulatory Problems Past Medical History: Diagnosis Date Anxiety Arthritis Depression ([facility]) Osteoporosis ([facility]) 11/2020 HISTORY PAST MEDICAL HISTORY SOCIAL HISTORY Past Medical History: Diagnosis Date Anxiety Arthritis Bipolar 2 disorder ([facility] Depression ([facility]) Osteoporosis ([facility]) 11/2020 Social History Tobacco Use Smoking status: [...] nursing note reviewed. Exam conducted with a narrow fabrics weaver present. Vitals: Estimated body mass index is [...] of: CHIQUI Pavon documented in this encounter [facility] Chief complaint+Reason for visit Narrative Note Date & Type Note Facility Chief complaint+Reason for v isit Narrative Reason for Visit Contact with and (suspected) exposure to covid-19 [facility] Work Phone: Evaluation note Note Date & Type Note Facility Evaluation note No assessment information availa ble [facility] Work Phone: Evaluation note Note Date & Type Note Facility Evaluation note Diagnosis Onset Date Contact with or exposure to other viral diseases acute Influenza B acute Sunburn of first degree none active [facility] Work Phone: Evaluation note Note Date & Type Note Facility Evaluation note Diagnosis Primary osteoarthritis of right hip S/P hip replacement, right Breast cancer screening by mammogram Well woman exam with routine gynecological exam Routine gynecological examination Menorrhagia with regular cycle documented in this encounter [facility] Evaluation note Note Date & Type Note Facility Evaluation note Diagnosis Primary osteoarthritis of right hip- Primary S/P hip replacement, right documented in this encounter [facility] Evaluation note Note Date & Type Note Facility Evaluation note Diagnosis Onset Date Contact with and (suspected) exposure to covid-19 noneactive [facility] Work Phone: Summary Purpose Family History No Family History Records Found Relationship Condition Age at Onset Recorded Date/T rosa elena Not Specified Malignant neoplasm of breast Unknown Not Specified Malignant neoplasm Unknown Malignant neoplasm of breast Unknown Relationship Condition Age at Onset Recorded Date/T rosa elena mother Malignant neoplasm of breast Unknown mother Malignant neoplasm Unknown Malignant neoplasm of breast Unknown father Diabetes mellitus Unknown Hypertension Unknown Advance Directives No Advanced Directives Records [...] and content) DATE CREATED AUTHOR 01/29/2021 [facility] DATE CREATED AUTHOR AUTHOR'S ORGANIZ ATION 03/03/2021 [facility] dical Specialist DATE CREATED AUTHOR AUTHOR'S ORGANIZ ATION 03/12/2021 [facility] DATE CREATED AUTHOR AUTHOR'S ORGANIZ ATION 01/03/2024 [facility] dical Specialists [facility] Care Teams (unrecognized sec tion and content) [...] May 15, 2023 End: May 15, 2023 Valarie Bone NP-C Attending Provider Active S tart: May 15, 2023 End: May 15, 2023 Healthcare Receptionist Relationship Specialty Start Date End Date Nitesh Hills DO [address] [place] [address] PCP - [employer] 09/25/20 Nitesh Hills DO [address] [place] [address] PCP - General Family Medicine 07/03/22 Healthcare Receptionist Relationship Specialty Start Date End Date Nitesh Hills DO [address] [place] [address] PCP - [employer] 09/25/20 Nitesh Hills DO [address] [place] [address] PCP - General Family Medicine 07/03/22 Healthcare Receptionist Relationship Specialty Start Date End Date Nitesh Hills DO [address] [place] [address] PCP - [employer] 09/25/20 Nitesh Hills DO [address] [place] [address] PCP - General Family Medicine 07/03/22 Healthcare Receptionist Relationship Specialty Start Date End Date Nitesh Hills DO [address] [place] [address] PCP - [employer] 09/25/20 Nitesh Hills DO [address] [place] [address] PCP - General Family Medicine 07/03/22 Healthcare Receptionist Relationship Specialty Start Date End Date Nitesh Hills DO [address] [place] [address] PCP - [employer] 09/25/20 Nitesh Hills DO [address] [place] [address] PCP - General Family Medicine 07/03/22 Team Status: Inactive Member Role Status Dates Van Hills DO Primary Care Provider Active Start: December 09, 2023 End: December 09, 2023 Jody Joyner APRN Attending Provider Active Start: December 09, 2023 End: December 09, 2023 Goals (unrecognized section and content) Goals may be documented in a n alternate sectionGoals may be documented in an alternate sectionGoals may be documented in an [...] BE BASED ON THE PRIMARY CLINICAL RECORDS. [facility] [employer] provides no warranty or guarantee of the accuracy or completeness of information in this document.
== END 2024-01-01 15:30 | disposition home or self-care (01) ==
LOC: LAB 15:29
PROVIDERS: PCP Family Medicine; Visit Provider Obstetrics & Gynecology
DX: N87.9 Dysplasia of cervix uteri, unspecified (principal)
CPT/HCPCS: 88305

== ENCOUNTER 2024-01-06 10:01 | Outpatient (REF) | payer BC, SELFPAY | END 2024-01-06 10:02 | LOC: LAB 10:01 | PROVIDERS: PCP Family Medicine; Visit Provider Obstetrics & Gynecology | DX: N92.0 Excessive and frequent menstruation with regular cycle (principal) | CPT/HCPCS: 88305 ==

== ENCOUNTER 2024-01-20 15:20 | Outpatient (OUT) | payer BC, SELFPAY | END 2024-01-20 15:21 | disposition home or self-care (01) | LOC: PST 15:20 | PROVIDERS: PCP Family Medicine; Visit Provider Obstetrics & Gynecology | DX: Z01.818 Encounter for other preprocedural examination (principal); N92.0 Excessive and frequent menstruation with regular cycle; N93.9 Abnormal uterine and vaginal bleeding, unspecified; R10.2 Pelvic and perineal pain ==

== ENCOUNTER 2024-01-31 06:08 | Day surgery (SDC) | payer BC, SELFPAY ==
[2024-01-31] VITALS (10 sets, daily range): BP systolic 109–134; BP diastolic 61–88; PULSE 72–94; TEMP 36.1–36.3; O2SAT 92–97; BMI 37.5
--- OUTSIDE RECORDS SUMMARY | 2024-01-31 06:11 | XMS_ITS | CCD ---
Author Organization [facility] CliniSyid Care Team Providers Care Handle Attacher Name Role Phone JEANA, DR Effie GRACIA Admitting Unavailable KAMATIAS, DR Effie GRACIA Attending Unavailable KAFTAN, DR Effie GRACIA Primary Care Unavailable KAFTAN, DR Effie GRACIA Consulting Unavailable KARASIK, DR PATEL Admitting Unavailable KARASIK, DR PATEL Attending Unavailable REQUEST, DR HANKS LISTED Primary Care Unavaila ble KARASIK, DR PATEL Consulting Unavailable JANEL, DR CHILEL Admitting Unavailable JANEL, DR CHILEL Attending Unavailable REQUEST, DR HANKS LISTED Primary Care Unavaila katie ISLAS, DR CHILEL Consulting Unavailable Nitesh Hills DO Unavailable Nitesh Hills DO Primary Care Provider NIXON AMBRIZ Attending Unavailable NITESH HILLS Referring Unavailable DK, NIXON Huerta Attending Unavailable DK, NIXON Huerta Referring Unavailable NIXON AMBRIZ Attending Unavailable DK, NIXON Huerta Referring Unavailable NITESH HILLS Referring Unavailable DK, NIXON Huerta Attending Unavailable DK, NIXON Huerta Referring Unavailable KALPANA ISSA Attending Unavailable DK, NIXON Huerta Attending Unavailable NIXON AMBRIZ Referring Unavailable CHAPIN ISLAS Attending Unavailable CHAPIN ISLAS Attending Unavailable Chapin Islas DO Attending Provider [phone] Chapin Islas Attending Unavailable Chapin Islas Admitting Unavailable Chapin Islas Attending Unavailable Chapin Islas Admitting Unavailable Medications Current Medications Medication Drug Class(es) Dates Sig (Normalized) Sig (Original) [id number] 200 actuat albuterol 0.09 mg/actuat metered dose inhaler (3 sources) beta2-Adrenergic Agonist Start: 4 take 1 puff(s) by inhalation every four hours Albuterol Sulfate 90 mcg/actuation HFA aerosol inhaler Active 2 PUFF INHALATION Q4H 1 December 08, 2023 11:00pm amoxicillin 875 mg oral tablet (3 sources) Penicillin-class Antibacterial Start: 4 take 1 tablet by mouth twice daily Amoxicillin 875 mg tablet Active 875 MG PO Twice daily 14 December 08, 2023 11:00pm dextromethorphan hydrobromide 15 mg / guaiFENesin 400 mg / pseudoephedrine hydrochloride 60 mg oral tablet (7 sources) alpha-Adrenergic Agonist, Uncompetitive L-pbaway-K-asparta te Receptor Antagonist, Sigma-1 Agonist Start: 4 End: 4 take 4 tablets by mouth every twenty-four hours as needed Thqqxkevonexdah-Yd-Wx aifenesin (Capmist Dm) 60-15-400 mg tablet Active 1 TAB PO EVERY 4-6 HOURS as needed for cold symptoms December 08, 2023 11:00pm do not exceed 4 doses per 24 hrs levonorgestrel 0.441509 mg/hr intrauterine system (1 source) Progestin, Progestin-containi ng Intrauterine Device Levonorgestrel (Mirena, 52 MG,) 20 MCG/DAY intrauterine device 1 each by Intrauterine route if needed (every 5 years) Active methylPREDNISolone 4 mg oral tablet (7 sources) Corticosteroid Start: 4 End: 4 take 1 tablet by mouth once Methylprednisolone (Medrol (Ross)) 4 mg tablets,dose pack Active 0 PO per package directions December 08, 2023 11:00pm PO PER PKG DIR for 6 days Completed/Discontinued Medications Medication Drug Class(es) Dates Sig (Normalized) Sig (Original) ARIPiprazole 5 mg oral tablet (5 sources) Atypical Antipsychotic Start: 06-29-2020 End: 04-11-2023 take 1 tablet by mouth once daily Aripiprazole 5 mg tablet Discontinued 5 MG PO Daily June 28, 2020 11:00pm April 11, 2023 3:51pm brexpiprazole 2 mg oral tablet (8 sources) Atypical Antipsychotic Start: 2022 End: 12-09-2023 take 1 tablet by mouth once daily Brexpiprazole (Rexulti) 2 mg tablet Discontinued 2 MG PO Daily April 11, 2023 12:00am December 09, 2023 3:40pm clonazePAM 0.5 mg oral tablet (5 sources) Benzodiazepine Start: 06-29-2020 End: 04-11-2023 take 1 tablet by mouth twice daily as needed for anxiety Clonazepam 0.5 mg tablet Discontinued 0.5 MG PO Twice daily as needed for Anxiety June 28, 2020 11:00pm April 11, 2023 3:50pm fluticasone propionate 0.05 mg/actuat metered dose nasal spray (4 sources) Corticosteroid Start: 04-11-2023 End: 12-09-2023 take 1 spray(s) nasal route twice daily Fluticasone Propionate (Flonase Allergy Relief) 50 mcg/actuation spray,suspension Discontinued 1 SPRAY INTRANASAL Twice daily April 11, 2023 12:00am December 09, 2023 3:40pm administer 1 spray into each nostril phentermine hydrochloride 37.5 mg oral tablet (5 sources) Sympathomimetic Amine Anorectic Start: 06-29-2020 End: 04-11-2023 take 1 tablet by mouth once daily Phentermine 37.5 mg tablet Discontinued 37.5 MG PO Daily June 28, 2020 11:00pm April 11, 2023 3:50pm Problems Active Problems Problem Classification Problem Date Documented Date Episodic/Chronic Abdominal pain (1 source) Pain in female pelvis; Translations: [Pelvic and perineal pain] 01-06-2024 Episodic Cancer of cervix (1 source) Atypical squamous cells of undetermined significance on cervical Papanicolaou smear; Translations: [Atypical squamous cells of undetermined significance on cytologic smear of cervix (ASC-US)] 01-01-2024 Episodic Immunizations and screening for infectious disease (10 sources) Encounter for screening for human papillomavirus (HPV); Translations: [Contact with and (suspected) exposure to other viral communicable diseases] Onset: 09-23-2020 04-11-2023 Episodic Influenza (6 sources) Influenza due to Influenza B virus; Translations: [Influenza due to other identified influenza virus with other respiratory manifestations] 04-11-2023 Episodic Menstrual disorders (3 sources) Menorrhagia; Translations: [Excessive and frequent menstruation with regular cycle] 11-26-2023 Chronic Mood disorders (18 sources) Bipolar II disorder; Translations: [Bipolar II disorder] Onset: 05-18-2020 11-07-2022 Chronic Osteoarthritis (20 sources) Osteoarthritis of left hip joint; Translations: [Unilateral primary osteoarthritis, left hip] Onset: 12-21-2020 11-07-2022 Chronic Other connective tissue disease (9 sources) History of total hip arthroplasty; Translations: [Presence of right artificial hip joint] Onset: 11-07-2022 12-12-2022 Chronic Other connective tissue disease (2 sources) History of repair of hip joint; Translations: [Presence of right artificial hip joint] 11-26-2023 Chronic Other female genital disorders (1 source) Abnormal uterine bleeding; Translations: [Abnormal uterine and vaginal bleeding, unspecified] 01-06-2024 Chronic Other inflammatory condition of skin (1 source) Sunburn of first degree; Translations: [Sunburn] 05-15-2023 Episodic Other nervous system disorders (9 sources) Difficulty walking; Translations: [Difficulty in walking, not elsewhere classified] Onset: 01-30-2021 11-08-2022 Chronic Other nervous system disorders (9 sources) Walking disability; Translations: [Difficulty in walking, not elsewhere classified] Onset: 11-08-2022 11-08-2022 Chronic Other nutritional; endocrine; and metabolic disorders (9 sources) Obese class II; Translations: [Class 2 obesity] Onset: 01-03-2021 11-08-2022 Chronic Other screening for suspected conditions (not mental disorders or infectious disease) (2 sources) Patient encounter status; Translations: [Encounter for screening mammogram for malignant neoplasm of breast] 11-26-2023 Episodic Other upper respiratory infections (2 sources) Acute upper respiratory infection, unspecified; Translations: [Acute upper respiratory infections of unspecified site] 12-09-2023 Episodic Otitis media and related conditions (2 sources) Other acute nonsuppurative otitis media, left ear; Translations: [Acute nonsuppurative otitis media, unspecified] 12-09-2023 Episodic Thyroid disorders (9 sources) Thyroid nodule; Translations: [Nontoxic single thyroid [...] Onset: 09-14-2020 Episodic Other nervous system disorders (9 sources) Loss of taste; Translations: [Parageusia] Onset: 01-10-2021 11-08-2022 Episodic Residual codes; unclassified (9 sources) Insomnia; Translations: [Insomnia, unspecified] Onset: 11-07-2022 11-07-2022 Episodic Unclassified (1 source) CONTACT W/AND (SUSP) EXPOS COVID-19; Translations: [CONTACT W/AND (SUSP) EXPOS COVID-19] Onset: 01-18-2021 Results Test Name Value Interpretation Reference Range Facility Pathology study report docum entOrdered By: Vishnu Murillo on 01-09-2024 Pathology study [facility] Other HCG ( test) Ql (U)O rdered By: Raven Doty on 01-06-2024 Interpretation and review of laboratory results Abnormal [facility] Work Phone: Preg Test, Ur Negative Negative [facility] Work Phone: [facility] Work Phone: Felix 01-06-2024 L Specimen: [id number] Received: 01/07/248283 Status: DORITA Hickman Num: [id number] Spec Type: Surgical Subm Dr: Chapin Islas Tissues: A Endometrium - Biopsy (EMBX) Procedures: HE/2, Gross/Micro L4 Age/ Patient Sex Location Account Attending Physician Daysi Medina 43/F LABELL [id number] Chapin Islas SPEC NUM: [id number] RECD: 01/07/24 STATUS: DORITA HICKMAN NUM: [id number] BENJAMÍN: 01/06/24- [facility] DR: Chapin Islas ENTERED: 01/07/[address] [facility] [address]: Ora Oconnor SPEC TYPE: Surgical DEPT: [facility] ENTERED BY: [id number] RECV BY: [id number] ORDERED: HE/2, Gross/Micro L4 ORDERED: HE/2, Gross/Micro L4 Pathological Diagnosis Endometrium, biopsy: - Benign endometrium with atrophic glands and decidualized stromal suggestive of exogenous progesterone hormone effect. - No evidence of hyperplasia or malignancy identified. Clinical Information Menorrhagia with pelvic pain Gross Description Received in formalin labeled with the patients name and Endometrium BX are stewart brown, delicate tissue fragments, 1.5 x 1.4 x 0.2 cm in aggregate. The specimen is filtered and entirely submitted in a single cassette. (1, ns, [id number]) JG Microscopic Description Microscopic examination is performed. CPT Codes 37782 Specimen: [id number] Received: 01/07/24 Status: DORITA Hickman Num: [id number] Spec Type: Surgical Subm Dr: Chapin Islas Tissues: A Endometrium - Biopsy (EMBX) Procedures: HE/2, Gross/Micro L4 Patient: Daysi Medina [id number] (Continued) Signed (signature on file) Vishnu Murillo MD 01/09/24 1100 Normal [facility] Pathology study report docum entOrdered By: Janine Brewster on 01-03-2024 Pathology study [facility] Other HCG ( test) Ql (U)o n 01-01-2024 Interpretation and review of laboratory results Normal [facility] Preg Test, Ur Negative Negative [facility] Felix 01-01-2024 L Specimen: [id number] Received: 01/02/24 Status: DORITA Hickman Num: [id number] Spec Type: Surgical Subm Dr: Chapin Islas Tissues: A Endocervix - Curettings (ECC) Procedures: HE/2Erik/Erick L4 Age/ Patient Sex Location Account Attending Physician Daysi Medina 43/F LABELL [id number] Chapin Islas SPEC NUM: [id number] RECD: 01/02/24 STATUS: DORITA HICKMAN NUM: [id number] BENJAMÍN: 01/01/24- SUBM DR: Chapin Islas ENTERED: 01/02/[address] [facility] [address]: Anastasia,Lab SPEC TYPE: Surgical DEPT: [facility] ENTERED BY: [id number] RECV BY: [id number] ORDERED: HE/2, Gross/Micro L4 ORDERED: HE/2, Gross/Micro L4 Pathological Diagnosis Endocervical curetting: -Several minute strips of ectocervical squamous epithelium with surrounding admixed PMN exudate, displaying at least mild dysplasia, CHARLINE-1, and LSIL Note: -The overall assessment is also slightly limited by the incomplete tangential sectioning of the epithelial clusters, and therefore also cannot completely exclude the possibility of CHARLINE-2 and/or moderate dysplasia Clinical Information ASCUS, HPV positive Gross Description Received in formalin labeled ECC are pale lerma, feathery soft tissue fragments, admixed with a pale lerma mucoid material, 0.7 x 0.3 x 0.1 cm in aggregate. The specimen is filtered and entirely submitted in a single cassette. (1, ns, [id number]) JG Specimen: [id number] Received: 01/02/24 Status: DORITA Vick Num: [id number] Spec Type: Surgical Subm Dr: Chapin Islas Tissues: A Endocervix - Curettings (ECC) Procedures: HE/2, Gross/Micro L4 Patient: Daysi Medina [id number] (Continued) Specimen: [id number] Received: 01/02/24 (Continued) Signed (signature on file) Janine Brewster MD 01/03/24 1315 Specimen: [id number] Received: 01/02/24 Status: DORITA Hickman Num: [id number] Spec Type: Surgical Subm Dr: Chapin Islas Tissues: A Endocervix - Curettings (ECC) Procedures: IRMA/2, Erik/Erick L4 Patient: Daysi Medina [id number] (Continued) Specimen: [id number] Received: 01/02/24 (Continued) Microscopic Description Microscopic examinations are performed supporting the above interpretation CPT Codes 52987 Specimen: [id number] Received: 01/02/24 Status: DORITA Hickman Num: [id number] Spec Type: Surgical Subm Dr: Chapin Islas Tissues: A Endocervix - Curettings (ECC) Procedures: HE/2, Gross/Micro L4 Patient: Daysi Medina [id number] (Continued) Signed (signature on file) Narinder-Mario Brewster MD 01/03/24 1315 Normal [facility] Influenza virus B Ag [Presen ce] in Upper respiratory specimen by Rapid immunoassayon 12-09-2023 FLUBV Ag IA.rapid Ql (Nph) Influenza virus B Ag [Presence] in Upper respiratory specimen by Rapid immunoassay [facility] No Panel Informationon 12-08 Influenza Type A (Rapid) Negative [facility] POC SARS CoV-2 Antigen Negative [facility] IGP,APTIMA HPV,AGE GDLNon AGE GDLN ACOG TESTING Note . [facility] Comment on above: TESTS RESULT FLAG UN ITS REF RANGE LAB Clinician Provided Cytology Information Source.............Cervix;Endocervix No. of containers..01 ThinPrep Vial Age Algo ACOG Yamilex... FLAG LEGEND: L-Low Normal,H-High Normal,LL-Alert Low,HH-Alert High <-Panic Low,>-Panic High,A-Abnormal,AA-Critical Abnormal Performed at: 01 =G [address] [place] [address] Alexandria Jones MD, HPV APTIMA Positive Abnormal Negative [facility] Comment on above: This nucleic acid am plification test detects fourteen high- risk HPV types (16,18,31,33,35,39,45,51,52,56,58,59,66,68) without differentiation. Performed at: = - [facility], [place] [id number] Biological Plant Operator: Alexandria Jones MD, Phone: [phone] Performed at: [facility] [id number] Biological Plant Operator: Alexandria Jones MD, Phone: [phone] IGP, APTIMA HPV, RFX 16/18,45 Note Abnormal . [facility] Comment on above: TESTS RESULT FLAG U NITS REF RANGE LAB DIAGNOSIS: [A] 02 EPITHELIAL CELL ABNORMALITY. ATYPICAL SQUAMOUS CELLS OF UNDETERMINED SIGNIFICANCE (ASC-US). Specimen adequacy: 02 Satisfactory for evaluation. Endocervical and/or squamous metaplastic cells (endocervical component) are present. Areas of partially obscuring inflammatory exudate are present. Performed by: 02 Moira Spaulding, Steam Service Inspector (ASCP) Electronically si... 02 Sindhu Lester MD, Pathologist . 02 Pathologist [...] <-Panic Low,>-Panic High,A-Abnormal,AA-Critical Abnormal Performed at: [address] [phone] Alexandria Jones MD, Interpretation and review of laboratory results Abnormal [facility] BRUSH-SPATULA CERVIX ENDOCERVIX [facility] ALL CBC WITH AUTO DIFFon BASOPHILS ABSOLUTE AUTO 0.0 [facility] Basophils/100 WBC (Bld) 0.5 % 0.2 - 2.0 % [facility] Eosinophils/100 WBC (Bld) 4.0 % 0.9 - 7.0 % [facility] Erythrocyte distribution width (RBC) [Ratio] 12.9 % 11.0 - 15.0 % [facility] Hematocrit (Bld) [Volume fraction] 41.4 % 36.0 - 48.0 % [facility] Hemoglobin (Bld) [Mass/Vol] 13.6 g/dL 12.0 - 16.0 g/dL [facility] IMMATURE GRANULOCYTES ABS AUTO 0.03 [facility] Immature granulocytes/100 WBC (Bld) 0.5 % 0.0 - 0.5 % [facility] LYMPHOCYTES ABSOLUTE AUTO 1.5 [facility] Lymphocytes/100 WBC (Bld) 24.7 % 20.5 - 60.0 % [facility] MCH (RBC) [Entitic mass] 30.0 pg 26.7 - 34.0 pg [facility] MCHC (RBC) [Mass/Vol] 32.9 g/dL 29.9 - 35.2 g/dL [facility] MCV (RBC) [Entitic vol] 91.2 fL 81.0 - 99.0 fL [facility] MONOCYTES ABSOLUTE AUTO 0.6 [facility] Monocytes/100 WBC (Bld) 9.6 % 1.7 - 12.0 % [facility] NEUTROPHILS ABSOLUTE AUTO 3.6 [facility] Neutrophils/100 WBC (Bld) 60.7 % 43.0 - 75.0 % [facility] Platelet mean volume (Bld) [Entitic vol] 12.3 fL 9.5 - 13.5 fL [facility] TBH EO # 0.2 [facility] PLT 243 [facility] RBC 4.54 [facility] WBC 5.9 [facility] MLR HEMOGLOBIN A1Con 024 Glucose [Mass/Vol] 103 mg/dL [facility] HbA1c (Bld) [Mass fraction] 5.2 % 4.5 - 6.2 % [facility] Comment on above: ADA RECOMMENDED LIMI T 4.0 - 6.0 ADA THERAPEUTIC TARGET < 7.0 ACTION SUGGESTED > 7.0 No Panel Informationon 12-01 [facility] XR Hip - right 3 [facility] Result: November 26, 2023 x-rays AP and lateral of the right hip demonstrate a right total hip replacement in good position alignment without signs of loosening fracture or failure. Impression: Stable appearance of right total hip replacement Nhan Ambriz D.O. [facility] Radiology Study observation (narrative) [facility] No Panel InformationOrdered By: Jody Joyner on 04-11-2023 COVID/Influenza Antigen (POC) [facility] Quick Strep (POC) [facility] BI MAMMOGRAM DIAGNOSTIC JENNIFER SYNTHESIS LEFTon [...] IS VERY IMPORTANT TO YOUR HEALTH. THE [employer] GUIDELINES RECOMMEND THAT WOMEN 40 [...] VERY IMPORTANT TO YOUR HEALTH. THE CURRENT [employer] [employer] AND [employer] GUIDELINES RECOMMENDS ANNUAL MAMMOGRAPHY BEGINNING AT AGE 40. THIS FACILITY UTILIZES A REMINDER SYSTEM TO ENSURE ALL PATIENTS RECEIVE REMINDER NOTIFICATIONS AT THE APPROPRIATE TIME BASED ON THE RECOMMENDATIONS OF THIS EXAM. ELECTRONICALLY SIGNED BY: Frank Adams MD Abnormal Not Available US Liveron 03-02-2021 US Liver CLINICAL HISTORY: [...] by Teresa Blackmon on 03/02/2021 1005 Normal [facility] Complete Blood Count with Au to Diffon 02-21-2021 Basophils (Bld) [#/Vol] 0.05 10*3/uL Normal 0.00-0.20 [facility] Comment on above: Performed By: #### C BCAD, CMP, TSH reflex FT4 #### [facility] [address], [place] [id number] Basophils/100 WBC (Bld) 0.5 % Normal [facility] Comment on above: Performed By: #### C BCAD, CMP, TSH reflex FT4 #### [facility] [address], [place] [id number] Eosinophils (Bld) [#/Vol] 0.24 10*3/uL Normal 0.02-0.50 [facility] Comment on above: Performed By: #### C BCAD, CMP, TSH reflex FT4 #### [facility] [address], [place] [id number] Eosinophils/100 WBC (Bld) 2.2 % Normal [facility] Comment on above: Performed By: #### C BCAD, CMP, TSH reflex FT4 #### [facility] [address], [place] [id number] Erythrocyte distribution width (RBC) [Ratio] 14.2 % Normal 11.0-15.0 [facility] Comment on above: Performed By: #### C BCAD, CMP, TSH reflex FT4 #### [facility] [address], [place] [id number] Hematocrit (Bld) [Volume fraction] 44.9 % Normal 35.0-47.0 [facility] Comment on above: Performed By: #### C BCAD, CMP, TSH reflex FT4 #### [facility] [address], [place] [id number] Hemoglobin (Bld) [Mass/Vol] 13.2 g/dL Normal 11.6-15.5 [facility] Comment on above: Performed By: #### C BCAD, CMP, TSH reflex FT4 #### [facility] [address], [place] [id number] Lymphocytes (Bld) [#/Vol] 2.0 10*3/uL Normal 0.9-3.9 [facility] Comment on above: Performed By: #### C BCAD, CMP, TSH reflex FT4 #### [facility] [address], [place] [id number] Lymphocytes/100 WBC (Bld) 18.3 % Normal [facility] Comment on above: Performed By: #### C BCAD, CMP, TSH reflex FT4 #### [facility] [address], [place] [id number] MCH (RBC) [Entitic mass] 29.5 pg Normal 27.0-33.0 [facility] Comment on above: Performed By: #### C BCAD, CMP, TSH reflex FT4 #### [facility] [address], [place] [id number] MCHC (RBC) [Mass/Vol] 29.4 g/dL Low 32.0-36.[address] [facility] Comment on above: Performed By: #### C BCAD, CMP, TSH reflex FT4 #### [facility] [address], [place] [id number] MCV (RBC) [Entitic vol] 100 fL Normal 80-100 [facility] Comment on above: Performed By: #### C BCAD, CMP, TSH reflex FT4 #### [facility] [address], [place] [id number] Monocytes (Bld) [#/Vol] 0.6 10*3/uL Normal 0.2-0.9 [facility] Comment on above: Performed By: #### C BCAD, CMP, TSH reflex FT4 #### [facility] [address], [place] [id number] Monocytes/100 WBC (Bld) 5.7 % Normal [facility] Comment on above: Performed By: #### C BCAD, CMP, TSH reflex FT4 #### [facility] [address], [place] [id number] Neutrophils (Bld) [#/Vol] 8.0 10*3/uL High 1.5-7.8 [facility] Comment on above: Performed By: #### C BCAD, CMP, TSH reflex FT4 #### [facility] [address], [place] [id number] Neutrophils/100 WBC (Bld) 72.9 % Normal [facility] Comment on above: Performed By: #### C BCAD, CMP, TSH reflex FT4 #### [facility] [address], [place] [id number] Platelet mean volume (Bld) [Entitic vol] 12.80 fL High 7.50-12.50 [facility] Comment on above: Performed By: #### C BCAD, CMP, TSH reflex FT4 #### [facility] [address], [place] [id number] Platelets (Bld) [#/Vol] 376 10*3/uL Normal 140-400 [facility] Comment on above: Performed By: #### C BCAD, CMP, TSH reflex FT4 #### [facility] [address], [place] [id number] RBC (Bld) [#/Vol] 4.47 10*6/uL Normal 3.90-5.20 [facility] Comment on above: Performed By: #### C BCAD, CMP, TSH reflex FT4 #### [facility] [address], [place] [id number] RDW-SD 52.3 fL High 37.0-50.0 [facility] Comment on above: Performed By: #### C BCAD, CMP, TSH reflex FT4 #### [facility] [address], [place] [id number] WBC (Bld) [#/Vol] 11.0 10*3/uL Normal 3.8-11.0 [facility] Comment on above: Performed By: #### C BCAD, CMP, TSH reflex FT4 #### [facility] [address], [place] [id number] [facility] 02-21-2021 Albumin [Mass/Vol] 4.4 g/dL Normal 3.6-5.1 [facility] Comment on above: Performed By: #### C BCAD, CMP, TSH reflex FT4 #### [facility] [address], [place] [id number] Albumin/Globulin [Mass ratio] 1.3 {ratio} Normal 1.0-2.5 [facility] Comment on above: Performed By: #### C BCAD, CMP, TSH reflex FT4 #### [facility] [address], [place] [id number] ALP [Catalytic activity/Vol] 193 U/L High 35-119 [facility] Comment on above: Performed By: #### C BCAD, CMP, TSH reflex FT4 #### [facility] [address], [place] [id number] ALT [Catalytic activity/Vol] 756 U/L High 6-33 [facility] Comment on above: Result Comment: 01/25 Female reference range changed. Performed By: #### C BCAD, CMP, TSH reflex FT4 #### [facility] [address], [place] [id number] Anion gap [Moles/Vol] 20 mmol/L Normal 12-[address] [facility] Comment on above: Result Comment: Effe ctive 03/02/2019 reference range changed. Performed By: #### C BCAD, CMP, TSH reflex FT4 #### [facility] [address] [facility] [place] [place] [id number] AST [Catalytic activity/Vol] 174 U/L High 9-34 [facility] Comment on above: Result Comment: Repe ated to verify. Performed By: #### C BCAD, CMP, TSH reflex FT4 #### [facility] [address] [facility] [place] [place] [id number] Bilirubin [Mass/Vol] 0.31 mg/dL Normal 0.30-1.20 [facility] Comment on above: Performed By: #### C BCAD, CMP, TSH reflex FT4 #### [facility] [address] [facility] [place] [id number] BUN/CREA 15 Ratio Normal 6-22 [facility] Comment on above: Performed By: #### C BCAD, CMP, TSH reflex FT4 #### [facility] [address] [facility] [place] [id number] Calcium [Mass/Vol] 10.4 mg/dL High 8.6-10.2 [facility] Comment on above: Performed By: #### C BCAD, CMP, TSH reflex FT4 #### [facility] [address], [place] [id number] Chloride [Moles/Vol] 103 mmol/L Normal 98-107 [facility] Comment on above: Performed By: #### C BCAD, CMP, TSH reflex FT4 #### [facility] [address] [place], [place] [id number] CO2 [Moles/Vol] 23 mmol/L Normal 20-31 [facility] Comment on above: Performed By: #### C BCAD, CMP, TSH reflex FT4 #### [facility] [address] [facility] [place] [id number] Creatinine [Mass/Vol] 0.7 mg/dL Normal 0.6-1.[address] [facility] Comment on above: Performed By: #### C BCAD, CMP, TSH reflex FT4 #### [facility] [address] [facility] [place] [id number] eGFRAA 112 mL/min/1.73m2 Normal >60 [place] [place] [facility] Rn Comment on above: Performed By: #### C BCAD, CMP, TSH reflex FT4 #### [facility] [address] [place], [place] [id number] eGFRNAA 92 mL/min/1.73m2 Normal >60 [facility]ist Comment on above: Performed By: #### C BCAD, CMP, TSH reflex FT4 #### [facility] [address] [place], [place] [id number] Globulin (S) [Mass/Vol] 3.5 g/dL Normal 1.9-3.7 Bj [facility] Specialist Comment on above: Performed By: #### C BCAD, CMP, TSH reflex FT4 #### [facility] [address] [place], [place] [id number] Glucose [Mass/Vol] 100 mg/dL High 65-[address] [facility] Comment on above: Result Comment: For FASTING Glucose --- ADA reference ranges: Normal 65-99 mg/dl Prediabetes 100-125 Diabetes >/= 126 Performed By: #### C BCAD, CMP, TSH reflex FT4 #### [facility] [address] [place], [place] [id number] Potassium [Moles/Vol] 4.1 mmol/L Normal 3.5-5.5 [facility] Comment on above: Performed By: #### C BCAD, CMP, TSH reflex FT4 #### [facility] [address] [place], [place] [id number] Protein [Mass/Vol] 7.9 g/dL Normal 6.1-8.1 [facility] [place] [facility] Rn Comment on above: Performed By: #### C BCAD, CMP, TSH reflex FT4 #### [facility] [address] [place], [place] [id number] Sodium [Moles/Vol] 141 mmol/L Normal 135-146 [facility] [place] [facility] Rn Comment on above: Performed By: #### C BCAD, CMP, TSH reflex FT4 #### [facility] [address] [place], [place] [id number] Urea nitrogen [Mass/Vol] 11 mg/dL Normal 7-25 [facility] Inpatient Care Manager Rn Comment on above: Performed By: #### C BCAD, CMP, TSH reflex FT4 #### [facility] [address] [place], [place] [id number] TSH w/ Reflex to Free T4on 1 04-24-2020 TSH 1.070 uIU/mL Normal 0.400-4.500 [facility] Inpatient Care Manager Rn Comment on above: Performed By: #### C BCAD, CMP, TSH reflex FT4 #### [facility] [address] [place], [place] [id number] US Thyroidon 02-21-2021 US Thyroid CLINICAL HISTORY: Abnormal CT. COMPARISON: None available. TECHNIQUE: Ultrasound of the thyroid was performed with a regional survey. Reference: ACR Thyroid, Imaging Recording and Data System (TI-RADS): White paper of the ACR TI-RADS committee. Journal of the [employer] of [employer]: Volume 14, issue 5, [...] by Frank Adams on 02/22/2021 0933 Normal [facility] Inpatient Care Manager Rn Covid-19 PCR (CVDTBH)on 12-27 SARS-CoV-2 (COVID-19) RNA GILLES+probe Ql (Unsp spec) Not detected Normal NOT DETECTED [facility] Comment on above: Result Comment: This test is not yet approved or cleared by the [place] FDA. When there are no FDA-approved or cleared tests available, and other criteria are met, FDA can make tests available under an emergency access mechanism called an Emergency Use Authorization (EUA). The EUA for this test is supported by the [place] of Health and Human Service's (HHS's) declaration [...] SARS-CoV-2. Performed By: #### C VDTB #### [facility] [address] [place] [address] Dr. Shelton Brewster PAP ACOG PANEL 2: 30 to 65on 09-20-2020 . . Normal [facility] Comment on above: Result Comment: Perf ormed at: WB Performed By: #### 4 [id number] #### [facility] [address] [place], [place] [address] Navi Vega Age Gdln ACOG Testing 30-65 Normal [facility] Comment on above: Performed By: #### 4 [id number] #### [facility] [address] [place], [place] [address] Navi Vega DIAGNOSIS: Comment Normal [facility] Comment on above: Result Comment: NEGA TIVE FOR INTRAEPITHELIAL LESION OR MALIGNANCY. Performed at: WB Performed By: #### 4 [id number] #### [facility] [address] [place], [place] [address] Navi Vega HPV Aptima Positive Abnormal Negative [facility] Comment on above: Result Comment: This nucleic acid amplification test detects fourteen high-risk HPV types (16,18,31,33,35,39,45,51,52,56,58,59,66,68) without differentiation. Performed at: =G Performed By: #### 4 [id number] #### [facility] [address] [place] [address] Navi [place] HPV Genotype 16 Negative Normal Negative [facility] Comment on above: Result Comment: Perf ormed at: =G Performed By: #### 4 [id number] #### [facility] [address] [place] [address] Navi [place] HPV Genotype 18,45 Negative Normal Negative [facility] Comment on above: Result Comment: Perf ormed at: =G Performed By: #### 4 [id number] #### [facility] [address] [place] [address] Navi Vega Methodology: CTIM Normal [facility] Comment on above: Result Comment: The Thin Prep(R) Finish Cleaner was unable to read this specimen. Therefore a manual review was performed. Performed at: WB Performed By: #### 4 [id number] #### [facility] [address] [place] [address] Navi Vega Note: Comment Normal [facility] Comment on above: Result Comment: The Pap smear is a screening test designed to aid in the detection of premalignant and malignant conditions of the uterine cervix. It is not a diagnostic procedure and should not be used as the sole means of detecting cervical cancer. Both false-positive and false-negative reports do occur. . Performed at: WB Performed By: #### 4 [id number] #### [facility] [address] [place] [address] Navi Vega Performed by: Comment Normal [facility] Comment on above: Result Comment: Almas Cramer Steam Service Inspector (ASCP) Performed at: WB Performed By: #### 4 [id number] #### [facility] [address] [place] [address] Navi Vega Specimen adequacy: Comment Normal [facility] Comment on above: Result Comment: Sati sfactory for evaluation. Endocervical and/or squamous metaplastic cells (endocervical component) are present. Performed at: WB Performed By: #### 4 [id number] #### [facility] [address] [place] [address] Navi Vega VAGINITIS/VAGINOSIS DNA PROB Jesse 09-16-2020 Kathy species Negative Normal Negative [facility] Comment on above: Performed By: #### V AGINT #### [facility] [address] [place] [address] Navizaina Vega Gardnerella vaginalis Positive Abnormal Negative [facility] Comment on above: Performed By: #### V AGINT #### [facility] [address] [place] [address] Navizaina Vega Trichomonas vaginalis Negative Normal Negative [facility] Comment on above: Performed By: #### V AGINT #### [facility] [address] [place] [address] Navi Vega CHLAMYDIA/GONOCOCCUS GILLES (SW AB/URINE/PAPon 08-22-2020 Chlamydia trachomatis, GILLES Negative Normal Negative [facility] Comment on above: Performed By: #### C T/NGNA #### [facility] [address] [place] [address] Navi Vega Neisseria gonorrhoeae, GILLES Negative Normal Negative [facility] Comment on above: Performed By: #### C T/NGNA #### [facility] [address] [place] [address] Navi Vega VAGINITIS/VAGINOSIS DNA PROB Jesse 08-21-2020 Kathy species Negative Normal Negative [facility] Comment on above: Performed By: #### V AGINT #### [facility] [address] [place] [address] Navizaina Vega Gardnerella vaginalis Negative Normal Negative [facility] Comment on above: Performed By: #### V AGINT #### [facility] [address] [place] [address] Navi Vega Trichomonas vaginalis Positive Abnormal Negative [facility] Comment on above: Performed By: #### V AGINT #### [facility] [address] [place] [address] Navi Vega Vital Signs Date Time Vital Sign Value Performing Clinician Facility 01-06-2024 15:53-0500 Body mass index (BMI) [Ratio] 36.01 kg/m2 Chapin Islas DO Work Phone: [facility] 01-06-2024 15:53-0500 Body weight 101.21 kg Chapin Janel DO Work Phone: [facility] 01-06-2024 15:53-0500 Diastolic blood pressure 62 mm[Hg] Chapin Janel DO Work Phone: [facility] 01-06-2024 15:53-0500 Systolic blood pressure 110 mm[Hg] Chapin Janel DO Work Phone: [facility] 01-01-2024 15:55-0500 Body mass index (BMI) [Ratio] 35.96 kg/m2 Chapin Janel DO Work Phone: [facility] 01-01-2024 15:55-0500 Body weight 101.06 kg Chapin Janel DO Work Phone: [facility] 01-01-2024 15:55-0500 Diastolic blood pressure 70 mm[Hg] Chapin Janel DO Work Phone: [facility] 01-01-2024 15:55-0500 Systolic blood pressure 120 mm[Hg] Chapin Janel DO Work Phone: [facility] 12-09-2023 16:34-0400 Body height 165.1 cm [facility] 12-09-2023 16:34-0400 Body mass index (BMI) [Ratio] 36.4 kg/m2 [facility] 12-09-2023 16:34-0400 Body temperature 97.8 [degF] [facility] 12-09-2023 16:34-0400 Body weight 99.33 kg [facility] 12-09-2023 16:34-0400 Diastolic blood pressure 76 mm[Hg] [facility] 12-09-2023 16:34-0400 Heart rate 91 /min [facility] 12-09-2023 16:34-0400 Respiratory rate 18 /min [facility] 12-09-2023 16:34-0400 SaO2% (BldA) [Mass fraction] 99 % [facility] 12-09-2023 16:34-0400 Systolic blood pressure 137 mm[Hg] [facility] 11-26-2023 09:18-0400 Body height 167.6 cm Kalpana Issa PA Work Phone: [facility] 11-26-2023 09:18-0400 Body mass index (BMI) [Ratio] 35.83 kg/m2 Kalpana Gonzalezey PA Work Phone: [facility] 11-26-2023 09:18-0400 Body weight 100.7 kg Kalpana Gonzalezey PA Work Phone: [facility] 11-26-2023 09:18-0400 Diastolic blood pressure 80 mm[Hg] Kalpana Issa PA Work Phone: [facility] 11-26-2023 09:18-0400 Systolic blood pressure 124 mm[Hg] Kalpana Independence PA Work Phone: [facility] 05-15-2023 10:10-0400 Body height 165.1 cm [facility] 05-15-2023 10:10-0400 Body mass index (BMI) [Ratio] 37 kg/m2 [facility] 05-15-2023 10:10-0400 Body temperature 98.4 [degF] [facility] 05-15-2023 10:10-0400 Body weight 100.81 kg [facility] 05-15-2023 10:10-0400 Diastolic blood pressure 90 mm[Hg] [facility] 05-15-2023 10:10-0400 Heart rate 90 /min [facility] 05-15-2023 10:10-0400 Respiratory rate 18 /min [facility] 05-15-2023 10:10-0400 SaO2% (BldA) [Mass fraction] 97 % [facility] 05-15-2023 10:10-0400 Systolic blood pressure 132 mm[Hg] [facility] 04-11-2023 15:47-0500 Body height 165.1 cm [facility] 04-11-2023 15:47-0500 Body mass index (BMI) [Ratio] 36.6 kg/m2 [facility] 04-11-2023 15:47-0500 Body temperature 99.4 [degF] [facility] 04-11-2023 15:47-0500 Body weight 99.79 kg [facility] 04-11-2023 15:47-0500 Heart rate 90 /min [facility] 04-11-2023 15:47-0500 Respiratory rate 16 /min [facility] 04-11-2023 15:47-0500 SaO2% (BldA) [Mass fraction] 98 % [facility] Encounters Encounter Date Encounter Type Care Provider Facility Start: 01-06-2024 End: 01-06-2024 Patient encounter procedure Chapin Janel DO Work Phone: [facility] Comment on above: Pre-op examination; Menorrhagia with regular cycle; Abnormal uterine bleeding (AUB); Pelvic pain in female Start: 01-06-2024 End: 01-06-2024 Preprocedural examination done Chapin Janel DO Work Phone: [facility] Start: 01-06-2024 End: 01-06-2024 ambulatory [facility] Work Phone: Start: 01-06-2024 End: 01-06-2024 Departed Referred Chapin Janel DO Work Phone: [facility] Start: 01-01-2024 End: 01-01-2024 Patient encounter procedure Chapin Janel DO Work Phone: [facility] Comment on above: ASCUS with positive high risk HPV cervical Start: 01-01-2024 End: 01-01-2024 ambulatory CHAPIN [facility] Work Phone: Start: 01-01-2024 End: 01-01-2024 Departed Referred Chapin Janel DO Work Phone: [facility] Start: 12-09-2023 End: 12-09-2023 ambulatory [facility] Work Phone: Start: 12-09-2023 End: 12-09-2023 Patient encounter procedure [facility] [place] Work Phone: Start: 12-02-2023 End: 12-02-2023 Clinisync Result Encounter Generic External Data Provider [facility] Unsolicited Start: 12-02-2023 End: 12-02-2023 Clinisync Result Encounter Generic External Data Provider [facility] External Department Unsolicited Start: 11-26-2023 End: 11-26-2023 Office outpatient visit 10 minutes Nixon Ambriz DO Work Phone: [facility] Comment on above: Primary osteoarthrit is [...] Patient encounter procedure Kalpana FLORIAN Work Phone: [facility] Start: 11-26-2023 End: 11-26-2023 Periodic preventive med est patient 40-64yrs Kalpana FLORIAN Work Phone: [facility] Comment on above: Breast cancer screen ing by mammogram; Well woman exam with routine gynecological exam; Menorrhagia with regular cycle Start: 11-26-2023 End: 11-26-2023 ambulatory KALPANA ISSA Not Available Start: 05-28-2023 End: 05-28-2023 ambulatory NIXON AMBRIZ Not Available Start: 05-15-2023 End: 05-15-2023 ambulatory [facility] Work Phone: Start: 05-15-2023 End: 05-15-2023 Patient encounter procedure [facility] [place] Work Phone: Start: 04-11-2023 End: 04-11-2023 ambulatory [facility] Work Phone: Start: 04-11-2023 End: 04-11-2023 Patient encounter procedure [facility] [place] Work Phone: [...] examination (general) (routine) without abnormal findings DR CHAPIN ISLAS [facility] Start: 09-14-2020 End: 09-14-[address] CHAPIN ISLAS Facility:[facility] Start: 08-19-2020 End: 08-19-[address] AMANDA WEST Facility:[facility] Procedures Date Procedure Procedure Detail Performing Clinician Start: 01-06-2024 Urine test visual color cmprsn meths Chapin Janel DO Work Phone: Start: 01-01-2024 Urine test visual color cmprsn meths Chapin Janel DO Work Phone: Start: 12-02-2023 ALL CBC WITH AUTO DIFF Kalpana FLORIAN Work Phone: Start: 12-02-2023 MLR HEMOGLOBIN A1C Kalpana FLORIAN Work Phone: Start: 11-26-2023 Radex hip unilateral with pelvis 2-3 views Nixon Ambriz DO Work Phone: Start: 11-26-2023 IGP,APTIMA HPV,AGE GDLN Kalpana FLORIAN Work Phone: Start: 11-26-2023 Microscopic observat ion [Identifier] in Cervix by Cyto stain Chapin Islas DO Work Phone: Start: 04-11-2023 COVID/Influenza Anti gen (POC) Start: 04-11-2023 Quick Strep (POC) Start: 01-29-2023 Mammography Kalpana FLORIAN Work Phone: Plan of Treatment Date Care Activity Detail Author Start: 11-25-2026 Screening for malignant neoplasm of cervix [facility] Start: 11-24-2024 End: 11-24-2024 Patient encounter procedure 11/24/2024 2:45 PM EDT Office Visit [facility] [address] [place] [address] Nixon Ambriz DO [address] [place] [address] [facility] Start: 11-23-2024 End: 11-23-2024 Patient encounter procedure 11/23/2024 1:45 PM EDT Office Visit [facility] [address] [place] [address] Radha Shanks, HORTICULTURAL WORKER [address] [place] [address] [facility] Start: 02-11-2024 End: 02-11-2024 Patient encounter procedure [facility] Start: 01-31-2024 End: 01-25-2025 MG Breast - bilateral Screening Bilateral screening mammogram Imaging Routine Breast cancer screening by mammogram Expected: 01/31/2024 (Approximate), Expires: 01/25/2025 [facility] Work Phone: Comment on above: Expected: 01/31/2024 (Approximate), Expires: 01/25/2025 Start: 01-30-2024 Screening for malignant neoplasm of breast Mammogram [facility] Start: 01-06-2024 End: 01-06-2024 Patient encounter procedure 01/06/2024 3:30 PM EST Procedure Visit [facility] [address] [place] [address] Chapin Islas, DO [address] [place] [address] [facility] Start: 01-01-2024 End: 12-31-2024 Colposcopy Colposcopy Procedures Routine ASCUS with positive high risk HPV cervical Expected: 01/01/2024 (Approximate), Expires: 12/31/2024 [facility] Work Phone: Comment on above: Expected: 01/01/2024 (Approximate), Expires: 12/31/2024 Start: 11-26-2023 End: 11-25-2024 aPTT in Blood by Coagulation assay APTT Lab Routine Menorrhagia with regular cycle Expected: 11/26/2023 (Approximate), Expires: 11/25/2024 [facility] Comment on above: Expected: 11/26/2023 (Approximate), Expires: 11/25/2024 Start: 11-26-2023 End: 11-25-2024 US for US PELVIS-TRANSVAG IF INDICATED Imaging Routine Menorrhagia with regular cycle Expected: 11/26/2023 (Approximate), Expires: 11/25/2024 [facility] Comment on above: Expected: 11/26/2023 (Approximate), Expires: 11/25/2024 Start: 11-26-2023 End: 11-26-2023 Patient encounter procedure [facility] Comment on above: Arrived Start: 10-27-2023 Influenza vaccination Influenza Vacc ine (#1) [facility] Start: 2012 Screening for malignant neoplasm of cervix [facility] Start: 11-16-2003 Screening for malignant neoplasm of cervix Pap Smear [facility] CBC W Auto Differential panel - Blood CBC and differential Lab Routine Menorrhagia with regular cycle Ordered: 11/26/2023 [facility] Comment on above: Ordered: 11/26/2023 hCG, quantitative, hCG, quantitative, Lab Routine Menorrhagia with regular cycle Ordered: 11/26/2023 [facility] Comment on above: Ordered: 11/26/2023 Hemoglobin A1c/Hemoglobin.total in Blood Hemoglobin A1c Lab Routine Menorrhagia with regular cycle Ordered: 11/26/2023 [facility] Comment on above: Ordered: 11/26/2023 Prothrombin time (PT ) in Blood by Coagulation assay Protime-INR Lab Routine Menorrhagia with regular cycle Ordered: 11/26/2023 [facility] Comment on above: Ordered: 11/26/2023 THIN PREP TIS PAP AN D HR HPV DNA THIN PREP TIS PAP AND HR HPV DNA Pathology and Cytology Routine Well woman exam with routine gynecological exam Ordered: 11/26/2023 [facility] Comment on above: Ordered: 11/26/2023 Thyrotropin [Units/volume] in Serum or Plasma TSH Lab Routine Menorrhagia with regular cycle Ordered: 11/26/2023 [facility] Comment on above: Ordered: 11/26/2023 Thyroxine (T4) free [Mass/volume] in Serum or Plasma T4, free Lab Routine Menorrhagia with regular cycle Ordered: 11/26/2023 [facility] Comment on above: Ordered: 11/26/2023 Tissue exam Tissue exam Path ology and Cytology Routine Pre-op examination Menorrhagia with regular cycle Abnormal uterine bleeding (AUB) Pelvic pain in female Ordered: 01/06/2024 [facility] Work Phone: Comment on above: Ordered: 01/06/2024 Immunizations Immunization Date Immunization Notes Care Provider Tg rahman 11-02-2018 influenza, injectabl e, quadrivalent, preservative free Kalpana FLORIAN Work Phone: [facility] 11-02-2018 influenza virus vacc ine, unspecified formulation Kalpana FLORIAN Work Phone: [facility] 11-01-2018 influenza, injectabl e, quadrivalent, preservative free Kalpana FLORIAN Work Phone: [facility] 08-19-2014 tetanus toxoid, redu shmuel diphtheria toxoid, and acellular pertussis vaccine, adsorbed Kalpana FLORIAN Work Phone: [facility] 08-18-2014 tetanus toxoid, redu shmuel diphtheria toxoid, and acellular pertussis vaccine, adsorbed Kalpana FLORIAN Work Phone: [facility] Healthcare Payers Date Payer Category Payer Self-pay [id number] 2017 [facility] BCBS [id number] 2017 Unknown BCBS BCBS [id number] 2017-Present [phone] [id number] [place], [place] [address] [id number] 1982 Unknown [id number] ..1.430327.3.579. 2.59 1982 Unknown [id number] .1.071892.3.579. 2.593 1982 Unknown [id number] 2.840.1.086708.3.579. 2.593 1982 Unknown [id number] 2.840.1.125984.3.579. 2.1259 1982 Unknown [id number] 2840.1.280183.3.579. 2.1259 1982 Unknown [id number] 2.840.1.409416.3.579. 2.1259 1982 Unknown [id number] 2.16.840.1.662346.3.579. 2.9 1982 Unknown [id number] 2.16.840.1.977143.3.579. 2.1258 1982 Unknown [id number] 2.16.840.1.022867.3.579. 2.1258 1982 Unknown [id number] 2.16.840.1.040351.3.579. 2.1258 1982 Unknown [id number] 2.16.840.1.227945.3.579. 2.1258 1982 Unknown [id number] 2.16.840.1.029693.3.579. 2.1258 1982 Unknown [id number] 2.16.840.1.784344.3.579. 2.1258 1982 Unknown [id number] 2.16.840.1.939830.3.579. 2.1258 1982 Unknown [id number] 2.16.840.1.063168.3.579. 2.1258 1982 Unknown [id number] 2.16.840.1.815032.3.579. 2.1258 1982 Unknown [id number] 2.16.840.1.830217.3.579. 2.1259 1959 Unknown [id number] Unknown [id number] 2.16.840.1.665857.3.579. 2.531 Unknown [id number] 2.16.840.1.832097.3.579. 2.531 Social History Date Type Detail Facility Start: 06-29-2020 End: 11-26-2023 Tobacco smoking status TNIS Ex-smoker (finding) [facility] Start: 1980 Sex Assigned At Female [facility] History of tobacco use Current smoker [facility] History of tobacco use Cigarette Smoker [facility] Start: 11-08-2022 End: 2022 Cigarettes smoked current (pack per day) - Reported 0.3 [facility] Start: 2022 End: 11-26-2023 Tobacco use and exposure Smokeless tobacco non-user [facility] Start: 02-26-2023 End: 01-06-2024 Alcoholic beverage intake Current drinker of alcohol (finding) [facility] Start: 11-08-2022 End: 2022 Humiliation, Afraid, Rape, and Kick questionnaire [HARK] [facility] Within the last year , have you been afraid of your partner or ex-partner? No [facility] Do you belong to any clubs or organizations such as episcopalian groups, unions, [employer] or athletic groups, or school groups? Yes [...] assigned at Not on file [facility] Start: 01-03-2024 End: 01-08-2024 Sex Female (finding) [facility] Clinical Notes 11-26-2023 to 01-06-2024 Sangeetha Huff - 01/06/2024 3:30 PM Angeline Serrano LPN - 01/01/2024 3:30 PM EST Note Date & Type Note Facility 01-06-2024 History of Presen t illness Narrative Reason for Appointment: Patient ID: Daysi Medina is a 43 y.o. female who presents for Pre-op Visit and Endometrial Biopsy Patient presents today for Pre Op/Endometrial Biopsy appointment. Patient is scheduled to undergo Endometrial Ablation with Radha on 01/31/[address] Islas at [facility]. 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 11/08/2022 Arthritis of left hip 12/21/2020 Primary localized osteoarthritis of left hip 01/31/2021 Primary localized osteoarthritis of right hip 12/12/2022 Resolved Ambulatory Problems Diagnosis Date Noted No Resolved Ambulatory Problems Past Medical History: Diagnosis Date Anxiety Arthritis Depression ([facility]) Osteoporosis ([facility]/HCC) 11/2020 HISTORY PAST MEDICAL HISTORY SOCIAL HISTORY Past Medical History: Diagnosis Date Anxiety Arthritis Bipolar 2 disorder (CMS/HCC) Depression (CMS/[facility]) Osteoporosis ([facility]) 11/2020 Social History Tobacco Use Smoking [...] Respiratory: Negative. Cardiovascular: Negative. Gastrointestinal: Negative. Genitourinary: Positive for menstrual problem and pelvic pain. Musculoskeletal: Negative. Skin: Negative. Neurological: Negative. All other systems reviewed and are negative. Hematological: Negative. Endocrine: Negative. Allergic/Immunologic: Negative. OBJECTIVE Objective: Physical Exam Constitutional: Appearance: Normal appearance. Genitourinary: Right Adnexa: not tender and no mass present. Left Adnexa: not tender and no mass present. No cervical discharge. Breasts: Breasts are soft. Right: Normal. Left: [...] nursing note reviewed. Exam conducted with a transformer shop supervisor present. Vitals: Estimated body mass index is 35.96 kg/m as calculated from the following: Height as of 11/26/23: 5' 6 . Weight as of 01/01/24: 222 lb 12.8 oz. BP: No LMP recorded. Patient has had an implant. ASSESSMENT & PLAN ICD-10-CM 1. Pre-op examination Z01.818 2. Menorrhagia with regular cycle N92.0 3. Abnormal uterine bleeding (AUB) N93.9 4. Pelvic pain in female R10.2 EMBX: Patient was placed in dorsal lithotomy position with feet in stirrups. A sterile speculum was placed into the vagina and the cervix was visualized. The cervix was grasped with a single tooth tenaculum. The endometrial pipette was placed through the cervix into the uterus, endometrial curettage was performed and sampling was obtained, endometrial curettings were placed in formalin, and single tooth tenaculum was removed. Excellent hemostasis was assured. All instruments were removed from vagina. Pre Op: Patient is doing well but has complaints of bleeding and pelvic pain. Patient has tried hormone therapy in the past but all attempts to subside patients issues have failed. I have discussed conservative management vs. surgical management with the patient in detail and patient desires surgical management at this time. Patient will undergo Endometrial Ablation with Radha on 01/31/2024. Surgical consents were signed, mmc was reviewed, and patient is to proceed to [facility] OR. Follow Up: Patient is to follow up between 1-2 weeks post op to assess proper healing and recovery from procedure. Documented by Heather Valentine LPN on behalf of: Chapin Islas DO documented in this encounter [facility] 01-01-2024 History of Presen t illness Narrative Reason for Appointment: Patient ID: Daysi Medina is a 43 y.o. 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 She is well-developed. Genitourinary: Vulva normal. Cardiovascular: Rate and Rhythm: Normal rate and regular rhythm. Pulmonary: Effort: Pulmonary effort is normal. Breath sounds: Normal breath sounds. Abdominal: General: Bowel sounds are normal. There is no distension. Palpations: Abdomen is soft. Tenderness: There is no abdominal tenderness. There is no guarding or rebound. Musculoskeletal: General: No swelling. Normal range of motion. Right lower leg: No edema. Left lower leg: No edema. Neurological: Mental Status: She is alert and oriented to person, place, and time. Skin: General: Skin is warm and dry. Psychiatric: Mood and Affect: Mood normal. Behavior: Behavior normal. Vitals and nursing note reviewed. Exam conducted with a transformer shop supervisor present. Vitals: Estimated body mass index is 35.96 kg/m as calculated from the following: Height as of 11/26/23: 5' 6 . Weight as of this encounter: 222 lb 12.8 oz. BP: 120/70 No LMP recorded. Patient has had an implant. ASSESSMENT & PLAN ICD-10-CM 1. ASCUS with positive high risk HPV cervical R87.610 POCT , urine manually resulted R87.810 Colposcopy Colposcopy: Patient is doing well and has no complaints. Pap results have been reviewed with the patient in great detail and patient voiced understanding. Patient presents today for a Colposcopy with ECC. Patient was placed in dorsal lithotomy position with feet in stirrups, a sterile speculum was placed into the vagina and the cervix was visualized. Cervix was cleansed with vinegar. Postprocedural instructions given. All if patients questions answered and she expressed understanding. Advised to call in interim with questions or concerns. Follow Up: Patient is to return in 6 months for Repeat Pap. Documented by Silvia Serrano LPN on behalf of: Chapin Islas DO documented in this encounter [facility] 12-09-2023 Evaluation note Diagnosis Onset Date Resolution Contact with and (suspected) exposure to covid-19 noneactive December 08 4:23pm Viral URI with cough noneactive 2023 4:23pm Acute otitis media with effusion of left ear noneactive December 08 4:23pm [facility] Work Phone: 1(843) 106-576310-01-2024 History of Present illness Narrative* Nixon Ambriz, - 11/26/2023 2:45 PM EDT Images from the original note were not [...] Diagnosis Date Anxiety Arthritis Bipolar 2 disorder ([facility]) Depression ([facility]) Osteoporosis ([facility]) 11/2020 ALLERGIES: No Known Allergies VITALS: [...] hip demonstrate a right total hip replacement ingood position alignment without signs of loosening fracture [...] one year with xrays, any issues/concerns follow upsooner. Dr. Ambriz obtained history and examined the patient, I am acting as scribe for Dr. Ambriz/ra Ambriz D.O. [id number] History of Present illness Narrative* CHIQUI Pavon - 11/26/2023 9:00 AM EDT Reason for Appointment: Patient ID: Daysi Medina is a 43 y.o. female who presents for Well Women Visit Patient presents today for Annual Exam. 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 11/08/2022 Arthritis of left hip 12/21/2020 Primary localized osteoarthritis of left hip 01/31/2021 Primary localized osteoarthritis of right hip 12/12/2022 Resolved Ambulatory Problems Diagnosis Date Noted No Resolved Ambulatory Problems Past Medical History: Diagnosis Date Anxiety Arthritis Depression ([facility]) Osteoporosis ([facility]/HCC) 11/2020 HISTORY PAST MEDICAL HISTORY SOCIAL HISTORY Past Medical History: Diagnosis Date Anxiety Arthritis Bipolar 2 disorder ([facility]) Depression ([facility]) Osteoporosis ([facility]) 11/2020 Social History Tobacco Use Smoking [...] Stoll Hypertension Father Shady Stoll Diabetes Father Sahdy Stoll SURGICAL HISTORY Past Surgical History: Procedure [...] nursing note reviewed. Exam conducted with a transformer shop supervisor present. Vitals: Estimated body mass index is [...] behalf of: [facility]QUI [facility] [place]Reason for visit Narrative* Chief Complaint cough, fever Reason for Visit Contact with and ([place]ust[place] spected) exposure to covid-19 [facility] Work Phone: Evaluation noteNo assessment information available [facility] Work Phone: evaluation note* Diagnosis Onset Date Resolution Status Contact with or exposure to other viral diseases acute Influenza B acute Sunburn of first degree none active [facility] Work Phone: Evaluation note* Diagnosis Primary osteoarthritis of right hip S/P hip replacement, right Breast cancer screening by mammogram Well woman exam with routine gynecological exam Routine gynecological examination Menorrhagia with regular cycle documented in this encounter [facility] HealthcareEvaluation note* Diagnosis Primary osteoarthritis of right hip- Primary S/P hip replacement, right documented in this encounter [facility] HealthcareEvaluation note* Diagnosis Onset Date Resolution Status Contact with and (suspected) exposure to covid-19 noneactive [facility] Work Phone: Evaluation note* Diagnosis ASCUS with positive high risk HPV cervical documented in this encounter [facility] HealthcareEvaluation note* Diagnosis Pre-op examination Menorrhagia with regular cycle Abnormal uterine bleeding (AUB) Pelvic pain in female Unspecified symptom associated with female genital organs documented in this encounter [facility] Healthcare Summary Purpose Family History Relationship Condition Age at Onset Recorded Date/T rosa elena Not Specified Malignant neoplasm of breast Unknown Not Specified Malignant neoplasm Unknown Malignant neoplasm of breast Unknown Relationship Condition Age at Onset Recorded Date/T rosa elena mother Malignant neoplasm of breast Unknown mother Malignant neoplasm Unknown Malignant neoplasm of breast Unknown father Diabetes mellitus Unknown Hypertension Unknown Advance Directives Advance Directive Response Recorded Date/ Time Advance Directives No June 07 12:19pm Advance Directive Response Recorded Date/ Time Advance Directives No June 07 1:19pm Chief Complaint and Reason for Visit Chief Complaint sore throat Chief Complaint sore throat sunburn on both legs Reason for Visit Contact with or expo sure to other viral diseases Influenza B Sunburn of first degree Chief Complaint Admit Date cough, fever December 09, 2023 4 :23pm Unknown January 01, 2024 9 :00am Reason for Visit Admit Date Contact with and (suspected) exposure to covid-19 December 09, 2023 4:23pm Viral URI with cough December 09, 2023 4:23pm Acute otitis media with effusion of left ear December 09, 2023 4:23pm Chief Complaint Admit Date cough, fever December 09, 2023 4 :23pm Unknown January 01, 2024 9 :00am Unknown January 06, 2024 3:00pm Additional Source Comments INFORMATION SOURCE (unrecogn ized section and content) DATE CREATED AUTHOR 01/29/2021 [facility] DATE CREATED AUTHOR AUTHOR'S ORGANIZ ATION 03/03/2021 [facility]ical Specialist DATE CREATED AUTHOR AUTHOR'S ORGANIZ ATION 01/08/2024 [facility] Specialists EPIC DATE CREATED AUTHOR AUTHOR'S ORGANIZ ATION 01/11/2024 [facility] Care Teams (unrecognized sec tion and content) [...] May 15, 2023 End: May 15, 2023 Handle Attacher Relationship Specialty Start Date End Date Nitesh Hills DO [address] [place] [address] PCP - [employer] 09/25/20 Nitesh Hills DO [address] [place] [address] PCP - General Family Medicine 07/03/22 Handle Attacher Relationship Specialty Start Date End Date Nitesh Hills DO [address] [place] [address] PCP - [employer] 09/25/20 Nitesh Hills, DO [address] [place] [address] PCP - General Family Medicine 07/03/22 Handle Attacher Relationship Specialty Start Date End Date Nitesh Hills DO [address] [place] [address] PCP - [employer] 09/25/20 Nitesh Hills, DO [address] [place] [address] PCP - General Family Medicine 07/03/22 Handle Attacher Relationship Specialty Start Date End Date Nitesh Hills, [address] [place] [address] PCP - [employer] 09/25/20 Nitesh Hills, DO [address] [place] [address] PCP - General Family Medicine 07/03/22 Handle Attacher Relationship Specialty Start Date End Date Nitesh Hills, [address] [place] [address] PCP - [employer] 09/25/20 Nitesh Hills, [address] [place] [address] PCP - General Family Medicine 07/03/22 Team Status: Inactive Member Role Status Dates Van Hills DO Primary Care Provider Active Start: December 09, 2023 End: December 09, 2023 Jody Joyner APRN Attending Provider Active Start: December 09, 2023 End: December 09, 2023 Handle Attacher Relationship Specialty Start Date End Date Nitesh Hills DO [address] [place] [address] [facility]20 JeanaNitesh DO [address] [place] [address] PCP - General Family Medicine 07/03/22 Team Status: Inactive Member Role Status Dates Chapin Islas DO Attending Provider Active Start : January 01, 2024 End: January 01, 2024 Team Status: Inactive Member Role Status Dates Chapin Islas DO Attending Provider Active Start : January 06, 2024 End: January 06, 2024 Handle Attacher Relationship Specialty Start Date End Date Nitesh Hills DO [address] [place] [address] PCP - [facility] 09/25/20 Jeana Nitesh Tonie, DO [address] [place] [address] PCP - General Family Medicine 07/03/22 Goals [...] Comments Well Women Visit Reason Comments Follow-up Reason Comments Colposcopy Reason Comments Pre-op Visit Endometrial Biopsy FOR RECORDS PERTAINING TO PATIENTS WHO ARE [...] BE BASED ON THE PRIMARY CLINICAL RECORDS. [facility]. provides no warranty or guarantee of the accuracy or completeness of information in this document.
[2024-01-31 06:21] LABS: Basophils Percent Auto 0.3 % (0.2-2.0); Eosinophils Absolute Auto 0.2 10^3/uL (0.0-0.7); Eosinophils Percent Auto 2.8 % (0.9-7.0); Hematocrit 40.1 % (36.0-48.0); Immature Granulocytes Abs Auto 0.02 10^3/uL (0.00-0.03); Immature Granulocytes Pct Auto 0.3 % (0.0-0.5); Lymphocytes Absolute Auto 2.1 10^3/uL (1.2-3.8); Lymphocytes Percent Auto 26.4 % (20.5-60.0); Mean Corpuscular HGB Conc 32.4 g/dL (29.9-35.2); Mean Corpuscular Hemoglobin 29.9 pg (26.7-34.0); Mean Corpuscular Volume 92.2 fL (81.0-99.0); Mean Platelet Volume 12.2 fL (9.5-13.5); Monocytes Absolute Auto 0.6 10^3/uL (0.3-0.8); Monocytes Percent Auto 7.4 % (1.7-12.0); Neutrophils Percent Auto 62.8 % (43.0-75.0); Platelet Count 237 10^3/uL (150-450); Red Blood Count 4.35 10^6/uL (4.20-5.40); Red Cell Distribution Width 12.8 % (11.0-15.0); White Blood Count 7.9 10^3/uL (4.0-11.0)
[2024-01-31 06:40] LABS: HCG Quantitative <1 mIU/mL
[2024-01-31] MEDS: LACTATED RINGER'S SOLUTION 1,000 ML 50 ML IV (06:54)
--- NOTE | 2024-01-31 09:11 | P.ON_ITS ---
Brief Operative Note Date of procedure: 01/31/24 Pre-op diagnosis general: menorrhagia Post-op diagnosis: same as pre-op Procedure: NAME OF PROCEDURE: [ ] Radha endometrial ablation with hysteroscopy, removal of iud PROCEDURE: The patient was taken back to the OR where she was prepped and draped in the normal sterile fashion after being placed in the dorsal lithotomy position, after being placed under general anesthesia without difficulty.? A weighted speculum was placed into the vagina. The anterior lip was grasped with a single tooth tenaculum. The patient was then sounded to approximated 8cm. The patient?s cervix was gently dilated using hegardilators. The hysteroscope was passed through the cervix into the uterus where both ostia were seen. No gross evidence of polyps, fibroids or malignancy. The cervical length was noted to be 4 cm. The total cavity length is 4cm.? The Radha ablation apparatus was set to approximately 4cm in length. This was placed through the cervix and into the uterus. After the seal was tested, at that time the total ablation of 120 seconds was performed with the Radha withoutdifficulty. All instruments were removed from the vagina. Excellent hemostasis noted.? Sponge and lap count c orrect times 2.? Patient taken to recovery in stable condition. iud removed without difficulty using polyp forcep Anesthesia: ABDELRAHMAN Surgeon: Chapin Islas Estimated blood loss (mL): 5 Pathology: none sent Condition: stable Disposition: PACU Urinary Catheter Management Urinary Catheter Management Urethral: Cath placed during this visit: no
== END 2024-01-31 10:20 | disposition home or self-care (01) ==
PROVIDERS: PCP Family Medicine; Visit Provider Obstetrics & Gynecology
PROC: (CPT 940; principal; 2024-01-31 07:30)
DX: N92.0 Excessive and frequent menstruation with regular cycle (principal); N93.9 Abnormal uterine and vaginal bleeding, unspecified; R10.2 Pelvic and perineal pain; Z30.432 Encounter for removal of intrauterine contraceptive device; Z87.891 Personal history of nicotine dependence; Z96.643 Presence of artificial hip joint, bilateral
CPT/HCPCS: 58301; 58563; 36415; 84702; 85025; J0690; J1100; J1885; J2250; J2405; J2704; J3010

== ENCOUNTER 2024-06-08 20:29 | Outpatient (REF) | payer BC, SELFPAY ==
--- OUTSIDE RECORDS SUMMARY | 2024-06-08 20:35 | XMS_ITS | CCD ---
Author Organization [facility] Care Team Providers Care Potato Chip Maker Name Role Phone DR Effie HILLS Admitting Unavailable KAMATIAS, DR Effie GRACIA Attending [...] Unavailable Nitesh Hills DO Primary Care Provider Chapin Islas DO Attending Provider [phone] Chapin Islas Attending Unavailable Chapin Islas Admitting Unavailable Chapin Islas Attending Unavailable Chapin Islas Admitting Unavailable KALPANA ISSA Attending Unavailable NIXON AMBRIZ Attending Unavailable NIXON AMBRIZ Referring Unavailable CHAPIN ISLAS Attending Unavailable CHAPIN ISLAS Attending Unavailable MEENU NEGRO Attending Unavailable MEENU NEGRO Referring Unavailable KALPANA ISSA Attending Unavailable MEENU NEGRO Attending Unavailable MEENU NEGRO Referring Unavailable NITESH HILLS Attending Unavailable KALPANA ISSA Referring Unavailable KALPANA ISSA Attending Unavailable Medications Current Medications Medication Drug Class(es) Dates Sig (Normalized) Sig (Original) acetaminophen 300 mg / codeine phosphate 30 mg oral tablet (2 sources) Opioid Agonist Start: 06-08-2024 End: 06-13-2024 take 1 tablet by mouth every six hours for pain acetaminophen-code ine (Tylenol w/ Codeine #3) 300-30 MG tablet Indications: Vaginal aphthous ulcer Take 1 tablet by mouth every 6 (six) hours if needed for severe pain for up to 5 days 20 tablet 06/08/2024 06/13/2024 Active [id number] 200 actuat albuterol 0.09 mg/actuat metered dose inhaler (3 sources) beta2-Adrenergic Agonist Start: 12-09-2023 take 1 puff(s) by inhalation every four hours Albuterol Sulfate 90 mcg/actuation HFA aerosol inhaler Active 2 PUFF INHALATION Q4H 1 December 08, 2023 11:00pm amoxicillin 875 mg oral tablet (3 sources) Penicillin-class Antibacterial Start: 12-09-2023 take 1 tablet by mouth twice daily Amoxicillin 875 mg tablet Active 875 MG PO Twice daily 14 December 08, 2023 11:00pm brexpiprazole 2 mg oral tablet (20 sources) Atypical Antipsychotic Start: 04-14-2024 End: 06-03-2024 take 1 tablet by mouth once daily Brexpiprazole (Rexulti) 2 MG tablet Indications: Bipolar II disorder (CMS/HCC) Take 2 mg by mouth Daily 7 tablet 04/14/2024 Active Start: 04-14-2024 End: 06-03-2024 take 1 tablet by mouth once daily Brexpiprazole (Rexulti) 0.5 MG tablet Indications: Bipolar II disorder (CMS/HCC) Take 0.5 mg by mouth Daily 7 tablet 04/14/2024 06/03/2024 Discontinued (Other) Start: 04-14-2024 End: 06-03-2024 take 1 tablet by mouth once daily Brexpiprazole (Rexulti) 1 MG tablet Indications: Bipolar II disorder (CMS/HCC) Take 1 mg by mouth Daily 7 tablet 04/14/2024 06/03/2024 Discontinued (Other) Start: 2022 End: 12-09-2023 take 1 tablet by mouth once daily Brexpiprazole (Rexulti) 2 mg tablet Discontinued 2 MG PO Daily April 11, 2023 12:00am December 09, 2023 3:40pm cephalexin 500 mg oral capsule (4 sources) Cephalosporin Antibacterial Start: 06-03-2024 End: 06-10-2024 take 1 capsule by mouth in the morning, then take 1 capsule by mouth in the evening, then take 1 capsule by mouth at bedtime cephalexin (Keflex) 500 MG capsule Indications: Labial abscess Take 1 capsule (500 mg) by mouth in the morning and 1 capsule (500 mg) in the evening and 1 capsule (500 mg) before bedtime. Do all this for 7 days. 21 capsule 06/03/2024 06/10/2024 Active 24 hr desvenlafaxine succinate 50 mg extended release oral tablet (8 sources) Serotonin and Norepinephrine Reuptake Inhibitor Start: 04-14-2024 End: 04-14-2025 take 1 tablet by mouth once daily desvenlafaxine (Pristiq) 50 MG 24 hr tablet Indications: Bipolar II disorder (CMS/HCC) , Other fatigue Take 1 tablet (50 mg) by mouth Daily Do not crush, chew, or split. 30 tablet 11 04/14/2024 04/14/2025 Active dextromethorphan hydrobromide 15 mg / guaiFENesin 400 mg / pseudoephedrine hydrochloride 60 mg oral tablet (7 sources) alpha-Adrenergic Agonist, Uncompetitive A-ktqtyb-V-asparta te Receptor Antagonist, Sigma-1 Agonist Start: 04-11-2023 End: 12-09-2023 take 4 tablets by mouth every twenty-four hours as needed Gogeqqxiqvktjrr-Ms-Hn aifenesin (Capmist Dm) 60-15-400 mg tablet Active 1 TAB PO EVERY 4-6 HOURS as needed for cold symptoms December 08, 2023 11:00pm do not exceed 4 doses per 24 hrs methylPREDNISolone 4 mg oral tablet (7 sources) Corticosteroid Start: 05-15-2023 End: 12-09-2023 take 1 tablet by mouth once Methylprednisolone (Medrol (Ross)) 4 mg tablets,dose pack Active 0 PO per package directions December 08, 2023 11:00pm PO PER PKG DIR for 6 days predniSONE 20 mg oral tablet (2 sources) Start: 03-17-2024 End: 03-26-2024 take 2 tablets by mouth once daily, then take 1 tablet by mouth once daily at mealtime predniSONE (Deltasone) 20 MG tablet Indications: Acute hip pain, left Take 2 tablets (40 mg) by mouth Daily for 5 days, THEN 1 tablet (20 mg) Daily for 5 days. Take with food. 15 tablet 03/17/2024 03/26/2024 Active sulfamethoxazole 800 mg / trimethoprim 160 mg oral tablet (4 sources) Dihydrofolate Reductase Inhibitor Antibacterial, Sulfonamide Antimicrobial Start: 06-03-2024 End: 06-13-2024 take 1 tablet by mouth once in the morning, then take 1 tablet by mouth once at bedtime sulfamethoxazole-trim ethoprim (Bactrim DS) 800-160 MG per tablet Indications: Labial abscess Take 1 tablet by mouth in the morning and 1 tablet before bedtime. Do all this for 10 days. 20 tablet 06/03/2024 06/13/2024 Active valACYclovir 1000 mg oral tablet (2 sources) Herpesvirus Nucleoside Analog DNA Polymerase Inhibitor, Herpes Simplex Virus Nucleoside Analog DNA Polymerase Inhibitor, Herpes Zoster Virus Nucleoside Analog DNA Polymerase Inhibitor Start: 06-08-2024 End: 06-18-2024 take 1 tablet by mouth in the morning valACYclovir (Valtrex) 1 g tablet Indications: Vaginal aphthous ulcer Take 1 tablet (1,000 mg) by mouth in the morning and 1 tablet (1,000 mg) before bedtime. Do all this for 10 days. 20 tablet 06/08/2024 06/18/2024 Active Completed/Discontinued Medications Medication Drug Class(es) Dates Sig (Normalized) Sig (Original) ARIPiprazole 5 mg oral tablet (5 sources) Atypical Antipsychotic Start: 06-29-2020 End: 04-11-2023 take 1 tablet by mouth once daily Aripiprazole 5 mg tablet Discontinued 5 MG PO Daily June 28, 2020 11:00pm April 11, 2023 3:51pm clonazePAM 0.5 mg oral tablet (5 sources) [...] 3:40pm administer 1 spray into each nostril levonorgestrel 0.025962 mg/hr intrauterine system (7 sources) Progestin, Progestin-containing Intrauterine Device End: 01-31-2024 Levonorgestrel (Mirena, 52 MG,) 20 MCG/DAY intrauterine device 1 each by Intrauterine route if needed (every 5 years) 01/31/2024 Discontinued (Therapy completed) phentermine hydrochloride 37.5 mg oral tablet (5 [...] viral communicable diseases] Onset: 09-23-2020 04-11-2023 Episodic Inflammatory diseases of female pelvic organs (4 sources) Abscess of labia; Translations: [Abscess of vulva] 06-03-2024 Episodic Influenza (6 sources) Influenza due to Influenza B virus; Translations: [Influenza due to other identified influenza virus with other respiratory manifestations] 04-11-2023 Episodic Malaise and fatigue (2 sources) Fatigue; Translations: [Other fatigue] 04-14-2024 Episodic Menstrual disorders (3 sources) Menorrhagia; Translations: [Excessive and frequent menstruation with regular cycle] 11-26-2023 Chronic Miscellaneous mental health disorders (2 sources) Primary insomnia; Translations: [Primary insomnia] 04-14-2024 Chronic Mood disorders (20 sources) Bipolar II disorder; Translations: [Bipolar II disorder] Onset: 05-18-2020 11-07-2022 Chronic Osteoarthritis (20 sources) Osteoarthritis of left hip joint; Translations: [Unilateral primary osteoarthritis, left hip] Onset: 12-21-2020 11-07-2022 Chronic Other aftercare (2 sources) Postoperative visit; Translations: [Encounter for other specified surgical aftercare] 02-12-2024 Episodic Other connective tissue disease (20 sources) History of total hip arthroplasty; Translations: [Presence of right artificial hip joint] Onset: 11-07-2022 12-12-2022 Chronic Other connective tissue disease (4 sources) History of repair of hip joint; Translations: [Presence of right artificial hip joint] 11-26-2023 Chronic Other connective tissue disease (2 sources) History of total replacement of left hip joint; Translations: [Presence of left artificial hip joint] 02-11-2024 Chronic Other connective tissue disease (2 sources) Trochanteric bursitis of left hip; Translations: [Trochanteric bursitis, left hip] 03-17-2024 Episodic Other connective tissue disease (2 sources) Iliotibial band friction syndrome of left knee; Translations: [Iliotibial band syndrome, left leg] 03-17-2024 Episodic Other female genital disorders (1 source) Abnormal uterine bleeding; Translations: [Abnormal uterine and vaginal bleeding, unspecified] 01-06-2024 Chronic Other female genital disorders (4 sources) Cyst of vagina; Translations: [Other specified noninflammatory disorders of vagina] 06-03-2024 Episodic Other inflammatory condition of skin (1 source) Sunburn of first degree; Translations: [Sunburn] 05-15-2023 Episodic Other nervous system disorders (20 sources) Difficulty walking; Translations: [Difficulty in walking, not elsewhere classified] Onset: 01-30-2021 11-08-2022 Chronic Other nervous system disorders (20 sources) Walking disability; Translations: [Difficulty in walking, not elsewhere classified] Onset: 11-08-2022 11-08-2022 Chronic Other non-traumatic joint disorders (4 sources) Hip pain; Translations: [Pain in left hip] 02-10-2024 Episodic Other nutritional; endocrine; and metabolic disorders (20 sources) Obese class II; Translations: [Class 2 obesity] Onset: 01-03-2021 11-08-2022 Chronic Other nutritional; endocrine; and metabolic disorders (2 sources) Obesity caused by energy imbalance; Translations: [Morbid (severe) obesity due to excess calories] 04-13-2024 Chronic Other screening for suspected conditions (not mental disorders or infectious disease) (4 sources) Patient encounter status; Translations: [Encounter for screening mammogram for malignant neoplasm of breast] 11-26-2023 Episodic Other upper respiratory infections (2 sources) Acute upper respiratory infection, unspecified; Translations: [Acute upper respiratory infections of unspecified site] 12-09-2023 Episodic Otitis media and related conditions (2 sources) Other acute nonsuppurative otitis media, left ear; Translations: [Acute nonsuppurative otitis media, unspecified] 12-09-2023 Episodic Residual codes; unclassified (2 sources) History of endometrial ablation; Translations: [Other specified postprocedural states] 02-12-2024 Episodic Thyroid disorders (20 sources) Thyroid nodule; Translations: [Nontoxic single thyroid nodule] Onset: 11-07-2022 11-07-2022 Chronic Unclassified (3 sources) CONTACT W/AND (SUSP) EXPOS COVID-19; Translations: [CONTACT W/AND (SUSP) EXPOS COVID-19] Onset: 01-27-2021 Unclassified (8 sources) Patient on antidepressant monitoring plan Onset: 04-14-2024 04-14-2024 Past or Other Problems Problem Classification Problem Date Documented Date Episodic/Chronic Mood disorders (8 sources) Mood disorders Onset: 04-14-2024 04-14-2024 Other female genital disorders (4 sources) Other specified noninflammatory disorders of vagina; Translations: [OTH SPEC NONINFLAMMATORY D/O VAGINA] Onset: 08-19-2020 Episodic Other infections; including parasitic (4 sources) Trichomoniasis, unspecified; Translations: [TRICHOMONIASIS UNSPECIFIED] Onset: 09-14-2020 Episodic Other nervous system disorders (20 sources) Loss of taste; Translations: [Parageusia] Onset: 01-10-2021 11-08-2022 Episodic Residual codes; unclassified (20 sources) Insomnia; Translations: [Insomnia, unspecified] Onset: 11-07-2022 11-07-2022 Episodic Unclassified (1 source) CONTACT W/AND (SUSP) EXPOS COVID-19; Translations: [CONTACT W/AND (SUSP) EXPOS COVID-19] Onset: 01-18-2021 Results Test Name Value Interpretation Reference Range Facility Urinalysis macro (dipstick) panel (U)on 06-03-2024 Bilirubin, UA Negative Negative - 4(70) +++ mg/dL [facility] Blood, UA Negative Negative - 50 Nicola/mcL [facility] Clarity, UA Clear [facility] Color, UA Yellow [facility] Glucose, UA Negative Negative - 2000(110) ++++ mg/dL [facility] Interpretation and review of laboratory results Abnormal [facility] Ketones, UA Negative Negative - 160(16) ++++ mg/dL [facility] Leukocytes, UA Trace Negative - 500+++ Mick/mcL [facility] Nitrite, UA Negative Negative - Positive [facility] pH, UA 6.5 5 - 9 [facility] Protein, UA Negative Negative - 2000(20) ++++ mg/dL [facility] Spec Grav, UA 1.02 1 - 1.03 [facility] Urobilinogen, UA 1.0 0.2 - 12 mg/dL [facility] BI MAMMOGRAM SCREENING TOMOS YNTHESIS BILATERALon 05-26-2024 BI MAMMOGRAM SCREENING TOMOSYNTHESIS BILATERAL This is a summary report. The complete report is available in the patient's medical record. If you cannot access the medical record, please contact the sending organization for a detailed fax or copy. Examination: BI MAMMOGRAM SCREENING TOMOSYNTHESIS BILATERAL Clinical History: breast ca screening Technique: Screening digital mammography study of both breasts was performed with 2-D and 3-D tomosynthesis imaging. Study was compared to the screening mammogram study of the breasts dated 01/14/2023 and diagnostic mammogram study of the left breast dated 01/29/2023. Findings: There is no evidence of interval dominant spiculated mass, grouped microcalcifications, or skin thickening which would be suggestive of malignancy. A few benign-appearing calcifications are seen bilaterally. Previously noted medial and lateral left breast asymmetric densities on the cc view from prior 01/14/2023 mammogram study are again suggested on the cc view, not discretely identified on the MLO view. Given the similarity findings likely represent focal fibroglandular tissue. Small benign-appearing asymmetric density in the superolateral aspect of the right breast posteriorly similar to the prior study. Axillary lymph nodes are noted bilaterally which appear grossly unremarkable. IMPRESSION: Impression: No specific evidence of malignancy seen in either breast. BIRADS 2 - Benign Findings DENSITY: The breasts are heterogeneously dense, which may obscure small masses. FOLLOW-UP: Routine Screening Mammogram ELECTRONICALLY SIGNED BY: Bud Cunningham M.D. Normal Not Available CBC W Auto Differential pane l (Bld)on 04-22-2024 Basophils (Bld) [#/Vol] 0 10*3/uL [facility] Basophils/100 WBC (Bld) 0 % Not Estab. [facility] [facility] Eosinophils (Bld) [#/Vol] 0.2 10*3/uL [facility] Eosinophils/100 WBC (Bld) 2 % Not Estab. [facility] Erythrocyte distribution width (RBC) [Ratio] 12.4 % 11.7 - 15.4 % [facility] Hematocrit (Bld) [Volume fraction] 39 % 34.0 - 46.6 % [facility] Hemoglobin (Bld) [Mass/Vol] 13.1 g/dL 11.1 - 15.9 g/dL [facility] Immature granulocytes (Bld) [#/Vol] 0 10*3/uL [facility] Immature granulocytes/100 WBC (Bld) 0 % Not Estab. [facility] Lymphocytes (Bld) [#/Vol] 2.5 10*3/uL [facility] Lymphocytes/100 WBC (Bld) 27 % Not Estab. [facility] MCH (RBC) [Entitic mass] 30.3 pg 26.6 - 33.0 pg [facility] MCHC (RBC) [Mass/Vol] 33.6 g/dL 31.5 - 35.7 g/dL [facility] MCV (RBC) [Entitic vol] 90 fL 79 - 97 fL N [facility] Monocytes (Bld) [#/Vol] 0.7 10*3/uL [facility] Monocytes/100 WBC (Bld) 7 % Not Estab. N [facility] [place] [facility] Neutrophils (Bld) [#/Vol] 5.9 10*3/uL [facility] Neutrophils/100 WBC (Bld) 64 % Not Estab. [facility] Platelets (Bld) [#/Vol] 274 10*3/uL [facility] RBC (Bld) [#/Vol] 4.32 10*6/uL [facility] WBC (Bld) [#/Vol] 9.3 10*3/uL [facility] Comprehensive metabolic pane felix 04-22-2024 Albumin [Mass/Vol] 4.5 g/dL 3.9 - 4.9 g/dL [facility] ALP [Catalytic activity/Vol] 68 U/L [facility] ALT [Catalytic activity/Vol] 18 U/L [facility] AST [Catalytic activity/Vol] 14 U/L [facility] Bilirubin [Mass/Vol] 0.4 mg/dL 0.0 - 1 .2 mg/dL [facility] Calcium [Mass/Vol] 9.7 mg/dL 8.7 - 10. 2 mg/dL [facility] Chloride [Moles/Vol] 102 mmol/L 96 - 10 6 mmol/L [facility] CO2 [Moles/Vol] 23 mmol/L 20 - 29 mmol/L [facility] Creatinine [Mass/Vol] 0.78 mg/dL 0.57 - 1.00 mg/dL [facility] GFR/1.73 sq M.predicted among non-blacks MDRD (S/P/Bld) [Vol rate/Area] 98 mL/min/{1.73_m2} 59 - PINF mL/min/1.73 [facility] Globulin (S) [Mass/Vol] 2.8 g/dL 1.5 - 4.5 g/dL [facility] Glucose [Mass/Vol] 84 mg/dL 70 - 99 mg/dL [facility] Potassium [Moles/Vol] 4 mmol/L 3.5 - 5.2 mmol/L [facility] Protein [Mass/Vol] 7.3 g/dL 6.0 - 8.5 g/dL [facility] Sodium [Moles/Vol] 138 mmol/L 134 - 144 mmol/L [facility] Urea nitrogen [Mass/Vol] 9 mg/dL 6 - 24 mg/dL [facility] Urea nitrogen/Creatinine [Mass ratio] 12 mg/mg 9 - 23 [facility] Lipid 1996 panelon Cholesterol [Mass/Vol] 167 mg/dL 100 - 199 mg/dL [facility] Cholesterol in HDL [Mass/Vol] 45 mg/dL 39 - PINF mg/dL [facility] Cholesterol in LDL [Mass/Vol] 106 mg/dL High 0 - 99 mg/dL [facility] Cholesterol in VLDL [Mass/Vol] 16 mg/dL 5 - 40 mg/dL [facility] Interpretation and review of laboratory results Abnormal [facility] Triglyceride [Mass/Vol] 86 mg/dL 0 - 149 mg/d L [facility] No Panel Informationon 04-22 Performed at: [address] [place] [id number] Bag Hanger: Timoteo Devries PhD, Phone: [phone] [facility] Specimen Status Reporton Clindamycin Disk diffusion (KB) [place] [place] [facility] Comment on above: Ambig Abbrev CMP14 D efault Ambig Abbrev CMP14 Default A hand-written panel/profile was received from your office. In accordance with the [facility] Ambiguous Test Code Policy dated August 2002, we have completed your order by using the closest currently or formerly recognized AMA panel. We have assigned Comprehensive Metabolic Panel (14), Test Code #372236 to this request. If this is not the testing you wished to receive on this specimen, please contact the [facility] Client Inquiry/Technical Services Department to clarify the test order. We appreciate your business. Ambig Abbrev LP Default Ambig Abbrev LP Default A hand-written panel/profile was received from your office. In accordance with the [facility] Ambiguous Test Code Policy dated August 2002, we have completed your order by using the closest currently or formerly recognized AMA panel. We have assigned Lipid Panel, Test Code #926447 to this request. If this is not the testing you wished to receive on this specimen, please contact the [facility] Client Inquiry/Technical Services Department to clarify the test order. We appreciate your business. TSHon 04-22-2024 TSH Qn 2.14 m[IU]/L [facility] XR Hip - left 3 Viewson 02-26 Imaging Result: AP and lateral of left hip: Acceptable position and alignment of left total hip arthroplasty. There was no evidence of loosening of the acetabular cup or femoral stem. Cerclage wires present, no acute fracture Femoral head was well centered in the acetabular liner without evidence of asymmetric or accelerated wear. There was no gross evidence of fracture and/or dislocation. Impression: Unremarkable left total hip arthroplasty. [facility] Radiology Study observation (narrative) [facility] XR Hip - left 3 Viewson 01-25 Imaging Result: AP and lateral of left hip: Acceptable position and alignment of left total hip arthroplasty. There was no evidence of loosening of the acetabular cup or femoral stem. Cerclage wires present, no acute fracture Femoral head was well centered in the acetabular liner without evidence of asymmetric or accelerated wear. There was no gross evidence of fracture and/or dislocation. Impression: Unremarkable left total hip arthroplasty. [facility] Radiology Study observation (narrative) [facility] ALL CBC WITH AUTO DIFFon BASOPHILS ABSOLUTE AUTO 0 N [facility] Basophils/100 WBC (Bld) 0.3 % 0.2 - 2.0 % [facility] Eosinophils/100 WBC (Bld) 2.8 % 0.9 - 7.0 % [facility] Erythrocyte distribution width (RBC) [Ratio] 12.8 % 11.0 - 15.0 % [facility] Hematocrit (Bld) [Volume fraction] 40.1 % 36.0 - 48.0 % [facility] Hemoglobin (Bld) [Mass/Vol] 13 g/dL 12.0 - 16.0 g/dL [facility] IMMATURE GRANULOCYTES ABS AUTO 0.02 [facility] Immature granulocytes/100 WBC (Bld) 0.3 % 0.0 - 0.5 % [facility] LYMPHOCYTES ABSOLUTE AUTO 2.1 [facility] Lymphocytes/100 WBC (Bld) 26.4 % 20.5 - 60.0 % [facility] MCH (RBC) [Entitic mass] 29.9 pg 26.7 - 34.0 pg [facility] MCHC (RBC) [Mass/Vol] 32.4 g/dL 29.9 - 35.2 g/dL [facility] MCV (RBC) [Entitic vol] 92.2 fL 81.0 - 99.0 fL [facility] MONOCYTES ABSOLUTE AUTO 0.6 N [facility] Monocytes/100 WBC (Bld) 7.4 % 1.7 - 12.0 % [facility] NEUTROPHILS ABSOLUTE AUTO 5 [facility] Neutrophils/100 WBC (Bld) 62.8 % 43.0 - 75.0 % [facility] Platelet mean volume (Bld) [Entitic vol] 12.2 fL 9.5 - 13.5 fL [facility] TBH EO # 0.2 [facility] PLT 237 [facility] RBC 4.35 [facility] WBC 7.9 [facility] Pathology study report docum entOrdered By: Vishnu Murillo on 01-09-2024 Pathology study [facility] Other HCG ( test) Ql (U)O rdered By: Raven Doty on 01-06-2024 Interpretation and review of laboratory results Abnormal [facility] Work Phone: Preg Test, Ur Negative Negative [facility] Healthcare Work Phone: [facility] Work Phone: Felix 01-06-2024 L Specimen: [id number] Received: 01/07/24 Status: DORITA Hickman Num: [id number] Spec Type: Surgical Subm Dr: Chapin Islas Tissues: A Endometrium - Biopsy (EMBX) Procedures: IRMA/Kallie Gross/Erick L4 Age/ Patient Sex Location Account Attending Physician Daysi Medina 43/F LABELL [id number] Chapin Islas SPEC NUM: [id number] RECD: 01/07/24 STATUS: DORITA HICKMAN NUM: [id number] BENJAMÍN: 01/06/24- SUBM DR: Chapin Islas ENTERED: 01/07/24 [facility] DR: Anastasia,Lab SPEC TYPE: Surgical DEPT: JOSE BORGES ENTERED BY: [id number] RECV BY: [id number] ORDERED: HE/2, Gross/Micro L4 ORDERED: HE/2, Gross/Micro [...] submitted in a single cassette. (1, ns, [id number]) Microscopic Description Microscopic examination is performed. CPT Codes 30289 Specimen: [id number] Received: 01/07/24 Status: DORITA Hickman Num: [id number] Spec Type: Surgical Subm Dr: Chapin Islas Tissues: A Endometrium - Biopsy (EMBX) Procedures: HE/2, Gross/Micro L4 Patient: Daysi Medina [id number] (Continued) Signed (signature on file) Vishnu Murillo MD 01/09/24 1100 Normal [facility] Pathology study report docum entOrdered By: Janine Brewster on 01-03-2024 Pathology study [facility] Other HCG ( test) Ql (U)o n 01-01-2024 Interpretation and review of laboratory results Normal [facility] Preg Test, Ur Negative Negative [facility] Felix 01-01-2024 L Specimen: [id number] Received: 01/02/24 Status: DORITA Hickman Num: [id number] Spec Type: Surgical Subm Dr: Chapin Islas Tissues: A Endocervix - Curettings (ECC) Procedures: HE/2, Gross/Micro L4 Age/ Patient Sex Location Account Attending Physician Daysi Medina 43/F LABELL [id number] Chapin Islas SPEC NUM: [id number] RECD: 01/02/24 STATUS: DORITA HICKMAN NUM: [id number] BENJAMÍN: 01/01/24- [facility] DR: Chapin Islas ENTERED: 01/02/[address]: Ora Oconnor SPEC TYPE: Surgical DEPT: JOSE BORGES ENTERED BY: [id number] RECV BY: [id number] ORDERED: HE/2, Gross/Micro L4 ORDERED: HE/2, Gross/Micro [...] submitted in a single cassette. (1, ns, [id number]) BROOKE Specimen: [id number] Received: 01/02/24 Status: DORITA Hickman Num: [id number] Spec Type: Surgical Subm Dr: Chapin Islas Tissues: A Endocervix - Curettings (ECC) Procedures: HE/2, Gross/Micro L4 Patient: Daysi Medina [id number] (Continued) Specimen: [id number] Received: 01/02/24 (Continued) Signed (signature on file) Janine Brewster MD 01/03/24 1315 Specimen: [id number] Received: 01/02/24 Status: VIOLETACelestina Hickman Num: [id number] Spec Type: Surgical Subm Dr: Chapin Islas Tissues: A Endocervix - Curettings (ECC) Procedures: HE/2, Gross/Micro L4 Patient: Daysi Medina [id number] (Continued) Specimen: [id number] Received: 01/02/24 (Continued) Microscopic Description Microscopic examinations are performed supporting the above interpretation CPT Codes 47186 Specimen: [id number] Received: 01/02/24 Status: DORITA Hickman Num: [id number] Spec Type: Surgical Subm Dr: Chapin Islas Tissues: A Endocervix - Curettings (ECC) Procedures: Erik DORADO/Erick L4 Patient: Daysi Medina [id number] (Continued) Signed (signature on file) Chin-Mario Brewster MD 01/03/24 1315 Normal [facility] Influenza virus B Ag [Presen ce] in Upper respiratory specimen by Rapid immunoassayon 12-09-2023 FLUBV Ag IA.rapid Ql (Nph) Influenza virus B Ag [Presence] in Upper respiratory specimen by Rapid immunoassay [facility] No Panel Informationon 12-08 Influenza Type A (Rapid) Negative [facility] POC SARS CoV-2 Antigen Negative [facility] IGP,APTIMA HPV,AGE GDLNon AGE GDLN ACOG TESTING Note . [facility] Comment on above: TESTS RESULT FLAG UN ITS REF RANGE LAB Clinician Provided Cytology Information Source.............Cervix;Endocervix No. of containers..01 ThinPrep Vial Age Algo ACOG Yamilex... FLAG LEGEND: L-Low Normal,H-High Normal,LL-Alert Low,HH-Alert High <-Panic Low,>-Panic High,A-Abnormal,AA-Critical Abnormal Performed at: 01 =[facility] [employer] [phone] Alexandria Jones MD, HPV APTIMA Positive Abnormal Negative [facility] Comment on above: This nucleic acid am plification test detects fourteen high- risk HPV types (16,18,31,33,35,39,45,51,52,56,58,59,66,68) without differentiation. Performed at: =[facility] [employer] [id number] Bag Hanger: Alexandria Jones MD, Phone: [phone] Performed at: [address] [id number] Bag Hanger: Alexandria Jones MD, Phone: [phone] IGP, APTIMA HPV, RFX 16/18,45 Note Abnormal . [facility] Comment on above: TESTS RESULT FLAG UN ITS REF RANGE LAB DIAGNOSIS: [A] 02 EPITHELIAL CELL ABNORMALITY. ATYPICAL SQUAMOUS CELLS OF UNDETERMINED SIGNIFICANCE (ASC-US). Specimen adequacy: 02 Satisfactory for evaluation. Endocervical and/or squamous metaplastic cells (endocervical component) are present. Areas of partially obscuring inflammatory exudate are present. Performed by: Moira Spaulding, Stock Chaser ([facility]) Electronically si... Sindhu Lester MD, Pathologist . [...] <-Panic Low,>-Panic High,A-Abnormal,AA-Critical Abnormal Performed at: [address] [facility] [place] [address] Alexandria Jones MD, Interpretation and review of laboratory results Abnormal [facility] BRUSH-SPATULA CERVIX ENDOCERVIX [facility] ALL CBC WITH AUTO DIFFon BASOPHILS ABSOLUTE AUTO 0.0 N [facility] Basophils/100 WBC (Bld) 0.5 % 0.2 - 2.0 % [facility] Eosinophils/100 WBC (Bld) 4.0 % 0.9 - 7.0 % [facility] Erythrocyte distribution width (RBC) [Ratio] 12.9 % 11.0 - 15.0 % [facility] Hematocrit (Bld) [Volume fraction] 41.4 % 36.0 - 48.0 % [facility] Hemoglobin (Bld) [Mass/Vol] 13.6 g/dL 12.0 - 16.0 g/dL [facility] IMMATURE GRANULOCYTES ABS AUTO 0.03 [facility] Immature granulocytes/100 WBC (Bld) 0.5 % 0.0 - 0.5 % [facility] LYMPHOCYTES ABSOLUTE AUTO 1.5 [facility] Lymphocytes/100 WBC (Bld) 24.7 % 20.5 - 60.0 % [facility] MCH (RBC) [Entitic mass] 30.0 pg 26.7 - 34.0 pg [facility] MCHC (RBC) [Mass/Vol] 32.9 g/dL 29.9 - 35.2 g/dL [facility] MCV (RBC) [Entitic vol] 91.2 fL 81.0 - 99.0 fL [facility] MONOCYTES ABSOLUTE AUTO 0.6 N [facility] Monocytes/100 WBC (Bld) 9.6 % 1.7 - 12.0 % [facility] NEUTROPHILS ABSOLUTE AUTO 3.6 [facility] Neutrophils/100 WBC (Bld) 60.7 % 43.0 - 75.0 % [facility] Platelet mean volume (Bld) [Entitic vol] 12.3 fL 9.5 - 13.5 fL [facility] TBH EO # 0.2 [facility] TBH PLT [address] [facility] RBC 4.54 [facility] TB WBC 5.9 [facility] MLR HEMOGLOBIN A1Con 024 Glucose [Mass/Vol] 103 mg/dL [facility] HbA1c (Bld) [Mass fraction] 5.2 % 4.5 - 6.2 % [facility] Comment on above: ADA RECOMMENDED LIMI T 4.0 - 6.0 ADA THERAPEUTIC TARGET < 7.0 ACTION SUGGESTED > 7.0 No Panel Informationon 12-01 [facility] XR Hip - right 3 [facility] Result: November 26, 2023 x-rays AP and lateral of the right hip demonstrate a right total hip replacement in good position alignment without signs of loosening fracture or failure. Impression: Stable appearance of right total hip replacement Nhan Ambriz D.O. [facility] Radiology Study observation (narrative) [facility] No Panel InformationOrdered By: Jody Joyner on 04-11-2023 COVID/Influenza Antigen (POC) [facility] Quick Strep (POC) [facility] US Liveron 03-02-2021 US Liver CLINICAL HISTORY: [...] by Teresa Blackmon on 03/02/2021 1005 Normal [facility] Complete Blood Count with Au to Diffon 02-21-2021 Basophils (Bld) [#/Vol] 0.05 10*3/uL Normal 0.00-0.20 [facility] Specialist Comment on above: Performed By: #### C BCAD, CMP, TSH reflex FT4 #### [facility] [address] [place], [place] [id number] Basophils/100 WBC (Bld) 0.5 % Normal N [facility]en [facility] Comment on above: Performed By: #### C BCAD, CMP, TSH reflex FT4 #### [facility] [address] [place], [place] [id number] Eosinophils (Bld) [#/Vol] 0.24 10*3/uL Normal 0.02-0.50 [facility] Specialist Comment on above: Performed By: #### C BCAD, CMP, TSH reflex FT4 #### [facility] [address] [place], [place] [id number] Eosinophils/100 WBC (Bld) 2.2 % Normal [facility] Specialist Comment on above: Performed By: #### C BCAD, CMP, TSH reflex FT4 #### [facility] [address], [place] [id number] Erythrocyte distribution width (RBC) [Ratio] 14.2 % Normal 11.0-15.0 [facility] Specialist Comment on above: Performed By: #### C BCAD, CMP, TSH reflex FT4 #### [facility] [address] [place], [place] [id number] Hematocrit (Bld) [Volume fraction] 44.9 % Normal 35.0-47.0 [facility] Specialist Comment on above: Performed By: #### C BCAD, CMP, TSH reflex FT4 #### [facility] [address] [place], [place] [id number] Hemoglobin (Bld) [Mass/Vol] 13.2 g/dL Normal 11.6-15.5 [facility] Comment on above: Performed By: #### C BCAD, CMP, TSH reflex FT4 #### [facility] [address] [place], [place] [id number] Lymphocytes (Bld) [#/Vol] 2.0 10*3/uL Normal 0.9-3.9 [facility] Specialist Comment on above: Performed By: #### C BCAD, CMP, TSH reflex FT4 #### [facility] [address], [place] [id number] Lymphocytes/100 WBC (Bld) 18.3 % Normal [facility] Specialist Comment on above: Performed By: #### C BCAD, CMP, TSH reflex FT4 #### [facility] [address], [place] [id number] MCH (RBC) [Entitic mass] 29.5 pg Normal 27.0-33.0 [facility] Specialist Comment on above: Performed By: #### C BCAD, CMP, TSH reflex FT4 #### [facility] [address] [place], [place] [id number] MCHC (RBC) [Mass/Vol] 29.4 g/dL Low 32.0-36.0 [facility] Comment on above: Performed By: #### C BCAD, CMP, TSH reflex FT4 #### [facility] [address], [place] [id number] MCV (RBC) [Entitic vol] 100 fL Normal 80-100 [facility] Specialist Comment on above: Performed By: #### C BCAD, CMP, TSH reflex FT4 #### [facility] [address] [place], [place] [id number] Monocytes (Bld) [#/Vol] 0.6 10*3/uL Normal 0.2-0.9 [facility] Specialist Comment on above: Performed By: #### C BCAD, CMP, TSH reflex FT4 #### [facility] [address], [place] [id number] Monocytes/100 WBC (Bld) 5.7 % Normal [facility] Specialist Comment on above: Performed By: #### C BCAD, CMP, TSH reflex FT4 #### [facility] [address], [place] [id number] Neutrophils (Bld) [#/Vol] 8.0 10*3/uL High 1.5-7.8 [facility] Specialist Comment on above: Performed By: #### C BCAD, CMP, TSH reflex FT4 #### [facility] [address], [place] [id number] Neutrophils/100 WBC (Bld) 72.9 % Normal [facility] Specialist Comment on above: Performed By: #### C BCAD, CMP, TSH reflex FT4 #### [facility] [address], [place] [id number] Platelet mean volume (Bld) [Entitic vol] 12.80 fL High 7.50-12.50 [facility] Comment on above: Performed By: #### C BCAD, CMP, TSH reflex FT4 #### [facility] [address], [place] [id number] Platelets (Bld) [#/Vol] 376 10*3/uL Normal 140-400 [facility] Comment on above: Performed By: #### C BCAD, CMP, TSH reflex FT4 #### [facility] [address], [place] [id number] RBC (Bld) [#/Vol] 4.47 10*6/uL Normal 3.90-5.20 [facility] Comment on above: Performed By: #### C BCAD, CMP, TSH reflex FT4 #### [facility] [address], [place] [id number] RDW-SD 52.3 fL High 37.0-50.0 [facility] Comment on above: Performed By: #### C BCAD, CMP, TSH reflex FT4 #### [facility] [address], [place] [id number] WBC (Bld) [#/Vol] 11.0 10*3/uL Normal 3.8-11.0 [facility] Comment on above: Performed By: #### C BCAD, CMP, TSH reflex FT4 #### [facility] [address], [place] [id number] Comprehensive Metabolic Pane [facility] 02-21-2021 Albumin [Mass/Vol] 4.4 g/dL Normal 3.6-5.1 [facility] Comment on above: Performed By: #### C BCAD, CMP, TSH reflex FT4 #### [facility] [address], [place] [id number] Albumin/Globulin [Mass ratio] 1.3 {ratio} Normal 1.0-2.5 [facility] Comment on above: Performed By: #### C BCAD, CMP, TSH reflex FT4 #### [facility] [address], [place] [id number] ALP [Catalytic activity/Vol] 193 U/L High 35-119 [facility] Comment on above: Performed By: #### C BCAD, CMP, TSH reflex FT4 #### [facility] [address], [place] [id number] ALT [Catalytic activity/Vol] 756 U/L High 6-33 [facility] Comment on above: Result Comment: 01/25 Female reference range changed. Performed By: #### C BCAD, CMP, TSH reflex FT4 #### [facility] [address], [place] [id number] Anion gap [Moles/Vol] 20 mmol/L Normal 12-20 [facility] Comment on above: Result Comment: Effe ctive 03/02/2019 reference range changed. Performed By: #### C BCAD, CMP, TSH reflex FT4 #### [facility] [address], [place] [id number] AST [Catalytic activity/Vol] 174 U/L High 9-34 [facility] Comment on above: Result Comment: Repe ated to verify. Performed By: #### C BCAD, CMP, TSH reflex FT4 #### [facility] [address] [place], [place] [id number] Bilirubin [Mass/Vol] 0.31 mg/dL Normal 0.30-1.20 [facility] Comment on above: Performed By: #### C BCAD, CMP, TSH reflex FT4 #### [facility] [address], [place] [id number] BUN/CREA 15 Ratio Normal 6-22 [facility] Comment on above: Performed By: #### C BCAD, CMP, TSH reflex FT4 #### [facility] [address] [facility] [place] [id number] Calcium [Mass/Vol] 10.4 mg/dL High 8.6-10.2 [facility] Comment on above: Performed By: #### C BCAD, CMP, TSH reflex FT4 #### [facility] [address] [facility] [place] [id number] Chloride [Moles/Vol] 103 mmol/L Normal 98-107 [facility] Comment on above: Performed By: #### C BCAD, CMP, TSH reflex FT4 #### [facility] [address] [facility] [place] [id number] CO2 [Moles/Vol] 23 mmol/L Normal 20-31 [place] Radioisotope Technician Comment on above: Performed By: #### C BCAD, CMP, TSH reflex FT4 #### [facility] [address], [place] [id number] Creatinine [Mass/Vol] 0.7 mg/dL Normal 0.6-1.4 [facility] Comment on above: Performed By: #### C BCAD, CMP, TSH reflex FT4 #### [facility] [address], [place] [id number] eGFRAA 112 mL/min/1.73m2 Normal >60 [facility] Specialist Comment on above: Performed By: #### C BCAD, CMP, TSH reflex FT4 #### [facility] [address], [place] [id number] eGFRNAA 92 mL/min/1.73m2 Normal >60 [facility] Comment on above: Performed By: #### C BCAD, CMP, TSH reflex FT4 #### [facility] [address], [place] [id number] Globulin (S) [Mass/Vol] 3.5 g/dL Normal 1.9-3.7 [facility] Comment on above: Performed By: #### C BCAD, CMP, TSH reflex FT4 #### [facility] [address], [place] [id number] Glucose [Mass/Vol] 100 mg/dL High 65-99 [facility] Specialist Comment on above: Result Comment: For FASTING Glucose --- ADA reference ranges: Normal 65-99 mg/dl Prediabetes 100-125 Diabetes >/= 126 Performed By: #### C BCAD, CMP, TSH reflex FT4 #### [facility] [address], [place] [id number] Potassium [Moles/Vol] 4.1 mmol/L Normal 3.5-5.5 [facility] Specialist Comment on above: Performed By: #### C BCAD, CMP, TSH reflex FT4 #### [facility] [address] [place], [place] [id number] Protein [Mass/Vol] 7.9 g/dL Normal 6.1-8.1 [facility] Radioisotope Technician Comment on above: Performed By: #### C BCAD, CMP, TSH reflex FT4 #### [facility] [address] [place], [place] [id number] Sodium [Moles/Vol] 141 mmol/L Normal 135-146 [facility] Radioisotope Technician Comment on above: Performed By: #### C BCAD, CMP, TSH reflex FT4 #### [facility] [address], [place] [id number] Urea nitrogen [Mass/Vol] 11 mg/dL Normal 7-25 [facility] Radioisotope Technician Comment on above: Performed By: #### C BCAD, CMP, TSH reflex FT4 #### [facility] [address] [place], [place] [id number] TSH w/ Reflex to Free T4on 04-24-2020 TSH 1.070 uIU/mL Normal 0.400-4.500 [facility] Radioisotope Technician Comment on above: Performed By: #### C BCAD, CMP, TSH reflex FT4 #### [facility] [address] [place], [place] [id number] US Thyroidon 02-21-2021 US Thyroid CLINICAL HISTORY: Abnormal CT. COMPARISON: None available. TECHNIQUE: Ultrasound of the thyroid was performed with a regional survey. Reference: ACR Thyroid, Imaging Recording and Data System (TI-RADS): White paper of the ACR TI-RADS committee. Journal of the [employer]: Volume 14, issue 5, [...] by Frank Adams on 02/22/2021 0933 Normal [facility] Radioisotope Technician [facility]on 12-27 SARS-CoV-2 (COVID-19) RNA GILLES+probe Ql (Unsp spec) Not detected Normal NOT DETECTED [facility] Comment on above: Result Comment: This test is not yet approved or cleared by the [place] FDA. When there are no FDA-approved or cleared tests available, and other criteria are met, FDA can make tests available under an emergency access mechanism called an Emergency Use Authorization (EUA). The EUA for this test is supported by the Visualization Developer of Health and Human Service's (HHS's) declaration [...] SARS-CoV-2. Performed By: #### C VDTB #### [facility] [address] [place] [address] Dr. Shelton Brewster PAP ACOG PANEL 2: 30 to 65on 09-20-2020 . . Normal [facility] Comment on above: Result Comment: Perf ormed at: WB Performed By: #### 4 [id number] #### [facility] [address] [id number] Navi Vega Age Gdln ACOG Testing 30-65 Normal [facility] Comment on above: Performed By: #### 4 [id number] #### [facility] [address] [place] [address] Navi Vega DIAGNOSIS: Comment Normal [facility] Comment on above: Result Comment: NEGA TIVE FOR INTRAEPITHELIAL LESION OR MALIGNANCY. Performed at: WB Performed By: #### 4 [id number] #### [facility] [address] [address] Navi Vega HPV Aptima Positive Abnormal Negative [facility] Comment on above: Result Comment: This nucleic acid amplification test detects fourteen high-risk HPV types (16,18,31,33,35,39,45,51,52,56,58,59,66,68) without differentiation. Performed at: =G Performed By: #### 4 [id number] #### [facility] [address] [place] [address] Navi Vega HPV Genotype 16 Negative Normal Negative [facility] Comment on above: Result Comment: Perf ormed at: =G Performed By: #### 4 [id number] #### [facility] [address] [place] [address] Navi Vega HPV Genotype 18,45 Negative Normal Negative [facility] Comment on above: Result Comment: Perf ormed at: =G Performed By: #### 4 [id number] #### [facility] [address] [place] [address] Navi Vega Methodology: CTIM Normal [facility] Comment on above: Result Comment: The Thin Prep(R) Faucet Polisher was unable to read this specimen. Therefore a manual review was performed. Performed at: WB Performed By: #### 4 [id number] #### [facility] [address] [place] [address] Navi Garnetten Note: Comment Normal [facility] Comment on above: Result Comment: The Pap smear is a screening test designed to aid in the detection of premalignant and malignant conditions of the uterine cervix. It is not a diagnostic procedure and should not be used as the sole means of detecting cervical cancer. Both false-positive and false-negative reports do occur. . Performed at: WB Performed By: #### 4 [id number] #### [facility] [address] [place] [address] Navi Vega Performed by: Comment Normal [facility] Comment on above: Result Comment: Almas Cramer Stock Chaser (ASCP) Performed at: WB Performed By: #### 4 [id number] #### [facility] [address] [place] [address] Navizaina Vega Specimen adequacy: Comment Normal [facility] Comment on above: Result Comment: Sati sfactory for evaluation. Endocervical and/or squamous metaplastic cells (endocervical component) are present. Performed at: WB Performed By: #### 4 [id number] #### [facility] [address] [place] [address] Navi Silvia VAGINITIS/VAGINOSIS DNA PROB Jesse 09-16-2020 Kathy species Negative Normal Negative [facility] Comment on above: Performed By: #### V AGINT #### [facility] [address] [place] [address] Navi Silvia Gardnerella vaginalis Positive Abnormal Negative [facility] Comment on above: Performed By: #### V AGINT #### [facility] [address] [place] [address] Navi Silvia Trichomonas vaginalis Negative Normal Negative [facility] Comment on above: Performed By: #### V AGINT #### [facility] [address] [place] [address] Navi Silvia CHLAMYDIA/GONOCOCCUS GILLES (SW AB/URINE/PAPon 08-22-2020 Chlamydia trachomatis, GILLES Negative Normal Negative [facility] Comment on above: Performed By: #### C T/NGNA #### [facility] [address] [place] [address] Navi Silvia Neisseria gonorrhoeae, GILLES Negative Normal Negative [facility] Comment on above: Performed By: #### C T/NGNA #### [facility] [address] [place] [address] Navi Silvia VAGINITIS/VAGINOSIS DNA PROB Jesse 08-21-2020 Kathy species Negative Normal Negative [facility] Comment on above: Performed By: #### V AGINT #### [facility] [address] [place] [address] Navi Silvia Gardnerella vaginalis Negative Normal Negative [facility] Comment on above: Performed By: #### V AGINT #### [facility] [address] [place], [place] [address] Navi Vega Trichomonas vaginalis Positive Abnormal Negative [facility] Comment on above: Performed By: #### V AGINT #### [facility] [address] [place], [place] [address] Navi Vega Vital Signs Date Time Vital Sign Value Performing Clinician Facility 06-08-2024 14:34-0400 Body mass index (BMI) [Ratio] 38.9 kg/m2 Meche Kirby CORRECTION LIEUTENANT Work Phone: [facility] 06-08-2024 14:34-0400 Body weight 109.32 kg Meche Kirby CORRECTION LIEUTENANT Work Phone: [facility] 06-08-2024 14:34-0400 Diastolic blood pressure 70 mm[Hg] Meche Kirby CORRECTION LIEUTENANT Work Phone: [facility] 06-08-2024 14:34-0400 Systolic blood pressure 112 mm[Hg] Meche Kirby CORRECTION LIEUTENANT Work Phone: [facility] 06-03-2024 13:29-0400 Body mass index (BMI) [Ratio] 38.27 kg/m2 Kalpana Issa PA Work Phone: [facility] 06-03-2024 13:29-0400 Body weight 107.56 kg Kalpana Issa PA Work Phone: [facility] 06-03-2024 13:29-0400 Diastolic blood pressure 74 mm[Hg] Kalpana Issa PA Work Phone: [facility] 06-03-2024 13:29-0400 Systolic blood pressure 120 mm[Hg] Kalpana Issa PA Work Phone: [facility] 04-14-2024 15:35-0500 Body height 167.6 cm Nitesh Hills DO Work Phone: [facility] 04-14-2024 15:35-0500 Body mass index (BMI) [Ratio] 37.7 kg/m2 Nitesh Hills DO Work Phone: [facility] 04-14-2024 15:35-0500 Body temperature 97.11 [degF] Nitesh Hills DO Work Phone: [facility] 04-14-2024 15:35-0500 Body weight 105.96 kg Nitesh Hills DO Work Phone: [facility] 04-14-2024 15:35-0500 Diastolic blood pressure 78 mm[Hg] Nitesh Hills DO Work Phone: [facility] 04-14-2024 15:35-0500 Heart rate 98 /min Nitesh Hills DO Work Phone: [facility] 04-14-2024 15:35-0500 SaO2% (BldA) [Mass fraction] 95 % Nitesh Hills DO Work Phone: [facility] 04-14-2024 15:35-0500 Systolic blood pressure 106 mm[Hg] Nitesh Hills DO Work Phone: [facility] 02-12-2024 14:37-0500 Body mass index (BMI) [Ratio] 37.28 kg/m2 Kalpana FLORIAN Work Phone: [facility] 02-12-2024 14:37-0500 Body weight 104.78 kg Kalpana FLORIAN Work Phone: [facility] 02-12-2024 14:37-0500 Diastolic blood pressure 64 mm[Hg] Kalpana Issa PA Work Phone: [facility] 02-12-2024 14:37-0500 Systolic blood pressure 112 mm[Hg] Kalpana Issa PA Work Phone: [facility] 01-06-2024 15:53-0500 Body mass index (BMI) [Ratio] 36.01 kg/m2 Chapin Janel DO Work Phone: [facility] 01-06-2024 15:53-0500 Body weight 101.21 kg Chapin Janel DO Work Phone: [facility] 01-06-2024 15:53-0500 Diastolic blood pressure 62 mm[Hg] Chapin Janel DO Work Phone: [facility] 01-06-2024 15:53-0500 Systolic blood pressure 110 mm[Hg] Chapin Janel DO Work Phone: [facility] 01-01-2024 15:55-0500 Body mass index (BMI) [Ratio] 35.96 kg/m2 Chapin Janel DO Work Phone: [facility] 01-01-2024 15:55-0500 Body weight 101.06 kg Chapin Janel DO Work Phone: [facility] 01-01-2024 15:55-0500 Diastolic blood pressure 70 mm[Hg] Chapin Janel DO Work Phone: [facility] 01-01-2024 15:55-0500 Systolic blood pressure 120 mm[Hg] Chapin Janel DO Work Phone: [facility] 12-09-2023 16:34-0400 Body height 165.1 cm [facility] 12-09-2023 16:34-0400 Body mass index (BMI) [Ratio] 36.4 kg/m2 [facility] 12-09-2023 16:34-0400 Body temperature 97.8 [degF] [facility] 12-09-2023 16:34-0400 Body weight 99.33 kg [facility] 12-09-2023 16:34-0400 Diastolic blood pressure 76 mm[Hg] [facility] 12-09-2023 16:34-0400 Heart rate 91 /min [facility] 12-09-2023 16:34-0400 Respiratory rate 18 /min [facility] 12-09-2023 16:34-0400 SaO2% (BldA) [Mass fraction] 99 % [facility] 12-09-2023 16:34-0400 Systolic blood pressure 137 mm[Hg] [facility] 11-26-2023 09:18-0400 Body height 167.6 cm Kalpana FLORIAN Work Phone: [facility] 11-26-2023 09:18-0400 Body mass index (BMI) [Ratio] 35.83 kg/m2 Kalpana Issa CHIQUI Work Phone: [facility] 11-26-2023 09:18-0400 Body weight 100.7 kg Kalpana Issa CHIQUI Work Phone: [facility] 11-26-2023 09:18-0400 Diastolic blood pressure 80 mm[Hg] Kalpana Issa CHIQUI Work Phone: [facility] 11-26-2023 09:18-0400 Systolic blood pressure 124 mm[Hg] Kalpana Issa CHIQUI Work Phone: [facility] 05-15-2023 10:10-0400 Body height 165.1 cm [facility] 05-15-2023 10:10-0400 Body mass index (BMI) [Ratio] 37 kg/m2 [facility] 05-15-2023 10:10-0400 Body temperature 98.4 [degF] [facility] 05-15-2023 10:10-0400 Body weight 100.81 kg [facility] 05-15-2023 10:10-0400 Diastolic blood pressure 90 mm[Hg] [facility] 05-15-2023 10:10-0400 Heart rate 90 /min [facility] 05-15-2023 10:10-0400 Respiratory rate 18 /min [facility] 05-15-2023 10:10-0400 SaO2% (BldA) [Mass fraction] 97 % [facility] 05-15-2023 10:10-0400 Systolic blood pressure 132 mm[Hg] [facility] 04-11-2023 15:47-0500 Body height 165.1 cm [facility] 04-11-2023 15:47-0500 Body mass index (BMI) [Ratio] 36.6 kg/m2 [facility] 04-11-2023 15:47-0500 Body temperature 99.4 [degF] [facility] 04-11-2023 15:47-0500 Body weight 99.79 kg [facility] 04-11-2023 15:47-0500 Heart rate 90 /min [facility] 04-11-2023 15:47-0500 Respiratory rate 16 /min [facility] 04-11-2023 15:47-0500 SaO2% (BldA) [Mass fraction] 98 % [facility] Encounters Encounter Date Encounter Type Care Provider Facility Start: 06-08-2024 End: 06-08-2024 Office outpatient visit 15 minutes Meche Kirby NP Work Phone: [facility] Comment on above: Vaginal aphthous ulc er (Primary Dx); Vaginal cyst Start: 06-03-2024 End: 06-03-2024 Bamboo flowsheet Kalpana FLORIAN Work Phone: [facility] Start: 06-03-2024 End: 06-03-2024 Bamboo flowsheet Kalpana FLORIAN Work Phone: [facility] Start: 06-03-2024 End: 06-03-2024 Office outpatient visit 15 minutes Kalpana FLORIAN Work Phone: [facility] Comment on above: Labial abscess (Prim dhiraj Dx); Vaginal cyst Start: 06-03-2024 End: 06-03-2024 ambulatory KALPANA ISSA Not Available Start: 05-26-2024 End: 05-26-2024 ambulatory KALPANA ISSA Not Available Start: 04-21-2024 End: 04-22-2024 Orders Only Nitesh Hills DO Work Phone: [facility] Unsolicited Start: 04-14-2024 End: 04-14-2024 Office outpatient visit 25 minutes Nitesh Hills DO Work Phone: [facility] Comment on above: Primary insomnia (Pr imary Dx); Bipolar II disorder (CMS/HCC); Morbid (severe) obesity due to excess calories (CMS/HCC); Unilateral primary osteoarthritis, right hip; Other fatigue; Lipid screening Start: 04-14-2024 End: 04-14-2024 ambulatory NITESH HILLS Not Available Start: 04-14-2024 End: 04-14-2024 Bamboo flowsheet Nitesh Hills DO Work Phone: [facility] Start: 04-14-2024 End: 04-14-2024 Bamboo flowsheet Nitesh Hills DO Work Phone: [facility] Start: 03-17-2024 End: 03-17-2024 Bamboo flowsheet Meenu Negro PA Work Phone: [facility] Start: 03-17-2024 End: 03-17-2024 Bamboo flowsheet Meenu FLORIAN Work Phone: [facility] Start: 03-17-2024 End: 03-17-2024 Office outpatient visit 25 minutes Meenu FLORIAN Work Phone: [facility] Comment on above: Acute hip pain, left (Primary Dx); Trochanteric bursitis of left hip; It band syndrome, left; History of left hip replacement Start: 03-17-2024 End: 03-17-2024 ambulatory MEENU NEGRO Not Available Start: 02-12-2024 End: 02-12-2024 Postop follow up visit related to original px Kalpana Issa PA Work Phone: [facility] Comment on above: Postoperative visit; S/P endometrial ablation Start: 02-12-2024 End: 02-12-2024 ambulatory KALPANA ISSA Not Available Start: 02-11-2024 End: 02-11-2024 Office outpatient visit 15 minutes Meenu FLORIAN Work Phone: [facility] Comment on above: Left hip pain (Prima ry Dx); History of total hip replacement, left Start: 02-11-2024 End: 02-11-2024 ambulatory MEENU NEGRO Not Available Start: 02-11-2024 End: 02-11-2024 Bamboo flowsheet Meenu FLORIAN Work Phone: [facility] Start: 02-11-2024 End: 02-11-2024 Bamboo flowsheet Meenu FLORIAN Work Phone: [facility] Start: 01-31-2024 End: 01-31-2024 Clinisync Result Encounter Generic External Data Provider [facility] Unsolicited Start: 01-31-2024 End: 01-31-2024 Clinisync Result Encounter Generic External Data Provider [facility] Unsolicited Start: 01-06-2024 End: 01-06-2024 Patient encounter procedure Chapin Cansecoo DO Work Phone: [facility] Comment on above: Pre-op examination; Menorrhagia with regular cycle; Abnormal uterine bleeding (AUB); Pelvic pain in female Start: 01-06-2024 End: 01-06-2024 Preprocedural examination done Chapin Islas DO Work Phone: [facility] Start: 01-06-2024 End: 01-06-2024 ambulatory [facility] Work Phone: Start: 01-06-2024 End: 01-06-2024 Departed Referred Chapin Cansecoo DO Work Phone: [facility] Start: 01-01-2024 End: 01-01-2024 Patient encounter procedure Chapin Cansecoo DO Work Phone: [facility] Comment on above: ASCUS with positive high risk HPV cervical Start: 01-01-2024 End: 01-01-2024 ambulatory [facility] Work Phone: Start: 01-01-2024 End: 01-01-2024 Departed Referred Chapinrenita Cansecoo DO Work Phone: [facility] Start: 12-09-2023 End: 12-09-2023 ambulatory [facility] Work Phone: Start: 12-09-2023 End: 12-09-2023 Patient encounter procedure [facility] [place] Work Phone: Start: 12-02-2023 End: 12-02-2023 Clinisync Result Encounter Generic External Data Provider [facility] Unsolicited Start: 12-02-2023 End: 12-02-2023 Clinisync Result Encounter Generic External Data Provider [facility] External Department Unsolicited Start: 11-26-2023 End: 11-26-2023 Office outpatient visit 10 minutes Nixon Ambriz DO Work Phone: [facility] Comment on above: 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); S/P hip replacement, right Start: 11-26-2023 End: 11-26-2023 ambulatory NIXON AMBRIZ Not Available Start: 11-26-2023 End: 11-26-2023 Bamboo flowsheet Kalpana FLORIAN Work Phone: [facility] Start: 11-26-2023 End: 12-03-2023 Bamboo flowsheet Kalpana FLORIAN Work Phone: [facility] Start: 11-26-2023 End: 12-03-2023 Clinisync Result Encounter Generic External Data Provider [facility] External Department Unsolicited Start: 11-26-2023 End: 11-26-2023 Patient encounter procedure Kalpana FLORIAN Work Phone: [facility] Healthcare Start: 11-26-2023 End: 11-26-2023 Periodic preventive med est patient 40-64yrs Kalpana FLORIAN Work Phone: [facility] Comment on above: Breast cancer screen ing by mammogram; Well woman exam with routine gynecological exam; Menorrhagia with regular cycle Start: 11-26-2023 End: 11-26-2023 ambulatory KALPANA SISA Not Available Start: 05-15-2023 End: 05-15-[address] [facility] Work Phone: Start: 05-15-2023 End: 05-15-2023 Patient encounter procedure [facility] [place] Work Phone: Start: 04-11-2023 End: 04-11-[address] [facility] Work Phone: Start: 04-11-2023 End: 04-11-2023 Patient encounter procedure [facility] [place] Work Phone: Start: 01-18-2021 End: 01-18-[address] Effie HILLS Facility:[facility]1 Start: 09-23-2020 Encounter for gynecological examination (general) (routine) without abnormal findings DR CHAPIN ISLAS [facility] Start: 09-14-2020 End: 09-14-[address] CHAPIN ISLAS Facility:[facility] Start: 08-19-2020 End: 08-19-[address] AMANDA WEST Facility:[facility] Procedures Date Procedure Procedure Detail Performing Clinician Start: 06-03-2024 Urnls dip stick/tabl et rgnt non-auto w/o micrscp Kalpana FLORIAN Work Phone: Start: 05-26-2024 Mammography Kalpana FLORIAN Work Phone: Start: 04-21-2024 Complete blood count with white cell differential, automated Nitesh Tonie Hills DO Work Phone: Start: 04-21-2024 Comprehensive metabo lic panel Nitesh Schilling Yomatias DO Work Phone: Start: 04-21-2024 Lipid panel Nitesh gomez DO Work Phone: Start: 04-21-2024 SPECIMEN STATUS REPORT Nitesh Tonie Yodwaynecristian DO Work Phone: Start: 03-17-2024 Radex hip unilateral with pelvis 2-3 views Meenu FLORIAN Work Phone: Start: 02-11-2024 Radex hip unilateral with pelvis 2-3 views Meenu FLORIAN Work Phone: Start: 01-31-2024 ALL CBC WITH AUTO DIFF Chapin Janel DO Work Phone: Start: 01-06-2024 Urine test visual color cmprsn meths Chapin Janel DO Work Phone: Start: 01-01-2024 Urine test visual color cmprsn meths Chapin Janel DO Work Phone: Start: 12-02-2023 ALL CBC WITH AUTO DIFF Kalpaan FLORIAN Work Phone: Start: 12-02-2023 MLR HEMOGLOBIN [...] Activity Detail Author Start: 11-25-2026 Screening for malign ant neoplasm of cervix [facility] Start: 02-09-2026 End: 02-09-2026 Patient encounter procedure 02/09/2026 8:00 AM EST Office Visit [facility] [address] [place] [phone] Meenu Negro PA [address] [place] [address] [facility] Start: 05-26-2025 Screening for malign ant neoplasm of breast Mammogram [facility] Start: 11-24-2024 End: 11-24-2024 Patient encounter procedure 11/24/2024 2:45 PM EDT Office Visit [facility] [address] [place] [phone] Nixon Ambriz, DO [address] [place] [address] [facility] Start: 11-23-2024 End: 11-23-2024 Patient encounter procedure 11/23/2024 1:45 PM EDT Office Visit [facility] [address] [place] [phone] Radha Shanks, COR[employer]CTION [employer] [address] [facility] [address] [place] [address] [facility] Start: 10-26-2024 Influenza vaccination Influenz a Vaccine (Season Ended) [facility] Start: 06-17-2024 End: 06-17-2024 Patient encounter procedure 06/17/2024 4:00 PM EDT Office Visit [facility] [address] [place] [phone] Nitesh Hills, DO [address] [place], [place] [id number] [facility] Start: 06-03-2024 End: 06-03-2024 Patient encounter procedure 06/03/2024 1:30 PM EDT Office Visit [facility] [address] [place] [phone] Kalpana Issa PA [address] [address] Arrived [facility] Comment on above: Arrived Start: 05-15-2024 End: 05-15-2024 Professional / ancillary services management 05/15/2024 4:30 PM EDT Ancillary Procedure [facility] [place] [address] [place] [phone] [facility] [place] Start: 04-14-2024 End: 04-14-2024 Patient encounter procedure 04/14/2024 3:40 PM EST Office Visit [facility] [address] [place] [address] Nitesh Hills, DO [address] [place], [place] [id number] Bipolar II disorder (CMS/HCC); Morbid (severe) obesity due to excess calories (CMS/HCC); Unilateral primary osteoarthritis, right hip [facility] Comment on above: Bipolar II disorder (CMS/HCC); Morbid (severe) obesity due to excess calories (CMS/HCC); Unilateral primary osteoarthritis, right hip Start: 04-14-2024 End: 04-14-2025 CBC W Auto Differential panel - Blood CBC and differential Lab Routine Bipolar II disorder (CMS/HCC) Morbid (severe) obesity due to excess calories (CMS/HCC) Unilateral primary osteoarthritis, right hip Primary insomnia Other fatigue Lipid screening Expected: 04/14/2024 (Approximate), Expires: 04/14/2025 [facility] Comment on above: Expected: 04/14/2024 (Approximate), Expires: 04/14/2025 Start: 04-14-2024 End: 04-14-2025 Comprehensive metabolic 2000 panel - Serum or Plasma Comprehensive metabolic panel Lab Routine Bipolar II disorder (CMS/HCC) Morbid (severe) obesity due to excess calories (CMS/HCC) Unilateral primary osteoarthritis, right hip Primary insomnia Other fatigue Lipid screening Expected: 04/14/2024 (Approximate), Expires: 04/14/2025 [facility] Comment on above: Expected: 04/14/2024 (Approximate), Expires: 04/14/2025 Start: 04-14-2024 End: 04-14-2025 Lipid 1996 panel - Serum or Plasma Lipid panel Lab Routine Lipid screening Expected: 04/14/2024 (Approximate), Expires: 04/14/2025 [facility] Work Phone: Comment on above: Expected: 04/14/2024 (Approximate), Expires: 04/14/2025 Start: 04-14-2024 End: 04-14-2025 Thyrotropin [Units/volume] in Serum or Plasma TSH Lab Routine Other fatigue Expected: 04/14/2024 (Approximate), Expires: 04/14/2025 [facility] Comment on above: Expected: 04/14/2024 (Approximate), Expires: 04/14/2025 Start: 03-31-2024 End: 03-31-2024 Patient encounter procedure 03/31/2024 2:45 PM EST Office Visit [facility] [address] [place] [address] Meenu Negro, PA [address] [facility] [address] [place] [address] [facility] Start: 03-17-2024 End: 03-17-2024 Patient encounter procedure 03/17/2024 8:45 AM EST Office Visit [facility] [address] [place] [phone] Meenu Negro PA [address] [facility] [place] [address] Acute hip pain, left (Primary Dx); Acute right hip pain; History of bilateral hip replacements [facility] Comment on above: Acute hip pain, left (Primary Dx); Acute right hip pain; History of bilateral hip replacements Start: 02-12-2024 End: 02-12-2024 Patient encounter procedure 02/12/2024 2:30 PM EST Office Visit [facility] [address] [place] [address] Kalpana Issa PA [address] [facility] [address] [facility] Start: 02-11-2024 End: 02-11-2024 Patient encounter procedure [facility] Comment on above: Left hip pain (Prima ry Dx); Right hip pain; History of bilateral hip replacements Start: 01-31-2024 End: 01-25-2025 MG Breast - bilateral Screening Bilateral screening mammogram Imaging Routine Breast cancer screening by mammogram Expected: 01/31/2024 (Approximate), Expires: 01/25/2025 [facility] Work Phone: Comment on above: Expected: 01/31/2024 (Approximate), Expires: 01/25/2025 Start: 01-30-2024 Screening for malign ant neoplasm of breast Mammogram [facility] Start: 01-06-2024 End: 01-06-2024 Patient encounter procedure 01/06/2024 3:30 PM EST Procedure Visit [facility] [address] [place] [address] Chapin Islas DO [address] [place] [address] [facility] Start: 01-01-2024 End: 12-31-2024 Colposcopy Colposcopy Procedures Routine ASCUS with positive high risk HPV cervical Expected: 01/01/2024 (Approximate), Expires: 12/31/2024 [facility] Work Phone: Comment on above: Expected: 01/01/2024 (Approximate), Expires: 12/31/2024 Start: 11-26-2023 End: 11-25-2024 aPTT in Blood by Coagulation assay APTT Lab Routine Menorrhagia with regular cycle Expected: 11/26/2023 (Approximate), Expires: 11/25/2024 [facility] Comment on above: Expected: 11/26/2023 (Approximate), Expires: 11/25/2024 Start: 11-26-2023 End: 11-25-2024 US for US PELVIS-TRANSVAG IF INDICATED Imaging Routine Menorrhagia with regular cycle Expected: 11/26/2023 (Approximate), Expires: 11/25/2024 [facility] Comment on above: Expected: 11/26/2023 (Approximate), Expires: 11/25/2024 Start: 11-26-2023 End: 11-26-2023 Patient encounter procedure [facility] Comment on above: Arrived Start: 10-27-2023 Influenza vaccination Influenza Vacc ine (#1) [facility] Start: 2012 Screening for malign ant neoplasm of cervix [facility] Start: 11-16-2003 Screening for malign ant neoplasm of cervix Pap Smear [facility] Aerobic culture Aerobic culture Microbiology Routine Vaginal cyst Ordered: 06/08/2024 [facility] Comment on above: Ordered: 06/08/2024 Anaerobic culture Anaerobic cult ure Microbiology Routine Vaginal cyst Ordered: 06/08/2024 [facility] Work Phone: Comment on above: Ordered: 06/08/2024 CBC W Auto Different ial panel - Blood CBC and differential Lab Routine Menorrhagia with regular cycle Ordered: 11/26/2023 [facility] Comment on above: Ordered: 11/26/2023 hCG, quantitative, hCG, quantitative, Lab Routine Menorrhagia with regular cycle Ordered: 11/26/2023 [facility] Comment on above: Ordered: 11/26/2023 Hemoglobin A1c/Hemoglobin.total in Blood Hemoglobin A1c Lab Routine Menorrhagia with regular cycle Ordered: 11/26/2023 [facility] Comment on above: Ordered: 11/26/2023 Prothrombin time (PT ) in Blood by Coagulation assay Protime-INR Lab Routine Menorrhagia with regular cycle Ordered: 11/26/2023 [facility] Comment on above: Ordered: 11/26/2023 THIN PREP TIS PAP AN D HR HPV DNA THIN PREP TIS PAP AND HR HPV DNA Pathology and Cytology Routine Well woman exam with routine gynecological exam Ordered: 11/26/2023 [facility] Comment on above: Ordered: 11/26/2023 Thyrotropin [Units/volume] in Serum or Plasma TSH Lab Routine Menorrhagia with regular cycle Ordered: 11/26/2023 [facility] Comment on above: Ordered: 11/26/2023 Thyroxine (T4) free [Mass/volume] in Serum or Plasma T4, free Lab Routine Menorrhagia with regular cycle Ordered: 11/26/2023 [facility] Comment on above: Ordered: 11/26/2023 Tissue exam Tissue exam Path ology and Cytology Routine Pre-op examination Menorrhagia with regular cycle Abnormal uterine bleeding (AUB) Pelvic pain in female Ordered: 01/06/2024 [facility] Work Phone: Comment on above: Ordered: 01/06/2024 Immunizations Immunization Date Immunization Notes Care Provider Tg morrison 11-02-2018 influenza, injectabl e, quadrivalent, preservative free Kalpana FLORIAN Work Phone: [facility] 11-02-2018 influenza virus vacc ine, unspecified formulation Kalpana FLORIAN Work Phone: [facility] 11-01-2018 influenza, injectabl e, quadrivalent, preservative free Kalpana FLORIAN Work Phone: [facility] 08-19-2014 tetanus toxoid, redu shmuel diphtheria toxoid, and acellular pertussis vaccine, adsorbed Kalpana FLORIAN Work Phone: [facility] 08-18-2014 tetanus toxoid, redu shmuel diphtheria toxoid, and acellular pertussis vaccine, adsorbed Kalpana FLORIAN Work Phone: [facility] Payers Date Payer Category Payer Self-pay [id number] 2017 [employer] Blue Shield [id number] 2017 Unknown BCBS BCBS [id number] 2017-Present [phone] [address] [place] [address] [id number] 2017 Unknown [id number] 1982 Unknown [id number] 2.840.1.629887.3.579.2. 593 1982 Unknown [id number] 2.840.1.068485.3.579.2. 593 1982 Unknown [id number] 2.840.1.665340.3.579.2. 59 1982 Unknown [id number] 2.16840.1.140661.3.579.2. 9 1982 Unknown [id number] 2.16840.1.668326.3.579.2. 1258 1982 Unknown [id number] 2.16840.1.234231.3.579.2. 1258 1982 Unknown [id number] 2.16840.1.586240.3.579.2. 1258 1982 Unknown [id number] 2.16840.1.647382.3.579.2. 1258 1982 Unknown [id number] 2.16840.1.756490.3.579.2. 1259 1982 Unknown [id number] 2.16840.1.766447.3.579.2. 1259 1982 Unknown [id number] 2.16.840.1.801252.3.579.2. 9 1982 Unknown [id number] 2.16.840.1.762299.3.579.2. 9 1982 Unknown [id number] 2.16.840.1.303721.3.579.2. 1258 1982 Unknown [id number] 2.16.840.1.261606.3.579.2. 9 1982 Unknown [id number] 2.16.840.1.196580.3.579.2. 1258 1982 Unknown [id number] 2.16.840.1.124319.3.579.2. 1259 1959 Unknown [id number] Unknown [id number] 2.16.840.1.300731.3.579.2. 531 Unknown [id number] [id number]. 531 Social History Date Type Detail Facility Start: 06-29-2020 End: 04-14-2024 Tobacco smoking status MSIS Ex-smoker (finding) [facility] Start: 1980 Sex Assigned At Female [facility] History of tobacco use Current smoker [facility] History of tobacco use Cigarette Smoker [facility] Start: 2022 End: 04-13-2024 Cigarettes smoked current (pack per day) - Reported 0.3 [facility] Start: 2022 End: 04-14-2024 Tobacco use and exposure Smokeless tobacco non-user [facility] Start: 02-26-2023 End: 06-03-2024 Alcoholic beverage intake Current drinker of alcohol (finding) [facility] Start: 11-08-2022 End: 04-13-2024 Humiliation, Afraid, Rape, and Kick questionnaire [HARK] [facility] Within the last year , have you been afraid of your partner or ex-partner? No [facility] Do you belong to any clubs or organizations such as rastafarian groups, unions, fraternal or athletic groups, or [...] To some extent [facility] (I/We) worried wheamairani er (my/our) food would run out before [...] Start: 01-03-2024 End: 01-08-2024 Sex Female (finding) [facility] How many standard dr inks containing alcohol do you have on a typical day? 1 or 2 [facility] Do you feel stress - tense, restless, nervous, or anxious, or unable to sleep at night because your mind is troubled all the time - these days [OSQ] Very much [facility] How often do you nee d to have someone help you when you read instructions, pamphlets, or other written material from your doctor or pharmacy [SILS] Never [facility] Goals Date Patient Goal Desired Activity /State Personal health goal Clinical Notes 11-26-2023 to 06-08-2024 Meche Kirby, DEVYN - 06/08/2024 2:30 PM Jonnie Kirby NP - 06/03/2024 1:30 PM Dominic Hills DO - 04/14/2024 3:40 PM CHIQUI Ashraf - 03/17/2024 8:45 AM EST Note Date & Type Note Facility 06-08-2024 History of Presen t illness Narrative Reason for Appointment: Patient ID: Daysi Medina is a 43 y.o. female who presents for vaginal cyst Patient presents today for Acute Visit. MEDICATIONS Current Outpatient Medications Medication Instructions cephalexin (KEFLEX) 500 mg, Oral, 3 times daily desvenlafaxine (PRISTIQ) 50 mg, Oral, Daily, Do not crush, chew, or split. Rexulti 2 mg, Oral, Daily sulfamethoxazole-trimethoprim (Bactrim DS) 800-160 MG per tablet 1 tablet, Oral, 2 times daily ALLERGIES No Known Allergies PROBLEMS Active Ambulatory Problems Diagnosis Date Noted Bipolar 2 disorder ([facility]) 11/07/2022 Osteoarthritis of left hip 11/07/2022 Status post total replacement of right hip 11/07/2022 Insomnia 11/07/2022 Thyroid nodule ([facility]) 11/07/2022 Bipolar affective disorder, currently depressed, moderate ([facility]) 05/18/2020 Class 2 obesity 01/03/2021 Difficulty walking 01/30/2021 Disability of walking 11/08/2022 Loss of taste 01/10/2021 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 11/08/2022 Arthritis of left hip 12/21/2020 Primary localized osteoarthritis of left hip 01/31/2021 Primary localized osteoarthritis of right hip 12/12/2022 Resolved Ambulatory Problems Diagnosis Date Noted No Resolved Ambulatory Problems Past Medical History: Diagnosis Date Anxiety Arthritis Depression ([facility]) Osteoporosis ([facility]) 11/2020 HISTORY PAST MEDICAL HISTORY SOCIAL HISTORY Past Medical History: Diagnosis Date Anxiety Arthritis Bipolar 2 disorder ([facility]) Depression ([facility]) Osteoporosis ([facility]) 11/2020 Social History Tobacco Use Smoking status: [...] HEART CORONARY 02/18/2021 CT ANGIOGRAM TAVR 02/18/2021 ENDOMETRIAL ABLATION 01/31/2024 removal of IUD Mirena JOINT REPLACEMENT 01/2021 TOTAL HIP ARTHROPLASTY Left 02/01/2021 with cables for femur fx Dr Ambriz TOTAL HIP ARTHROPLASTY Right 12/05/2022 Dr Ambriz VARICOSE VEIN SURGERY REVIEW OF SYSTEMS Review of Systems: Review of Systems Skin: Complaints of vaginal cyst/ pain. OBJECTIVE Objective: Physical Exam Constitutional: Appearance: Normal appearance. She is well-developed. Genitourinary: Vulva normal. Genitourinary Comments: Labia minora with five round raised non keratinized ulcers yellowish in color with mildly raised border and painful with light touch. Left Labia: rash. Cardiovascular: Rate and Rhythm: Normal rate and [...] nursing note reviewed. Exam conducted with a skiing instructor present. Vitals: Estimated body mass index is 38.9 kg/m as calculated from the following: Height as of 04/14/24: 5' 6 . Weight as of this encounter: 241 lb. BP: 112/70 No LMP recorded. Patient has had an ablation. ASSESSMENT & PLAN ICD-10-CM 1. Vaginal aphthous ulcer N76.5 2. Vaginal cyst N89.8 Anaerobic culture Aerobic culture Patient presents with continued complaints of pain and discomfort to left labia minora with 5 small oval ulcers. Ulcers are cultured today (anaerobic / aerobic and viral) and sent for testing. There is no fluctuance today. Findings consistent with herpetiform aphthous ulcers. Valtrex and Tylenol #3 sent to pharmacy. Documented by Meche Kirby NP on behalf of: Meche Kirby NP documented in this encounter [facility] 06-03-2024 History of Presen t illness Narrative Reason for Appointment: Patient ID: Daysi Medina is a 43 y.o. female who presents for vaginal cyst Patient presents today for Acute Visit. MEDICATIONS Current Outpatient Medications Medication Instructions desvenlafaxine (PRISTIQ) 50 mg, Oral, Daily, Do not crush, chew, or split. Rexulti 2 mg, Oral, Daily ALLERGIES No Known Allergies PROBLEMS Active Ambulatory Problems Diagnosis Date Noted Bipolar 2 disorder ([facility]) 11/07/2022 Osteoarthritis of left hip 11/07/2022 Status post total replacement of right hip 11/07/2022 Insomnia 11/07/2022 Thyroid nodule ([facility]) 11/07/2022 Bipolar affective disorder, currently depressed, moderate ([facility]) 05/18/2020 Class 2 obesity 01/03/2021 Difficulty walking 01/30/2021 Disability of walking 11/08/2022 Loss of taste 01/10/2021 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 11/08/2022 Arthritis of left hip 12/21/2020 Primary localized osteoarthritis of left hip 01/31/2021 Primary localized osteoarthritis of right hip 12/12/2022 Resolved Ambulatory Problems Diagnosis Date Noted No Resolved Ambulatory Problems Past Medical History: Diagnosis Date Anxiety Arthritis Depression ([facility]) Osteoporosis ([facility]) 11/2020 HISTORY PAST MEDICAL HISTORY SOCIAL HISTORY Past Medical History: Diagnosis Date Anxiety Arthritis Bipolar 2 disorder ([facility]) Depression ([facility]) Osteoporosis ([facility]) 11/2020 Social History Tobacco Use Smoking status: [...] HEART CORONARY 02/18/2021 CT ANGIOGRAM TAVR 02/18/2021 ENDOMETRIAL ABLATION 01/31/2024 removal of IUD Mirena JOINT REPLACEMENT 01/2021 TOTAL HIP ARTHROPLASTY Left 02/01/2021 with cables for femur fx Dr Ambriz TOTAL HIP ARTHROPLASTY Right 12/05/2022 Dr Ambriz VARICOSE VEIN SURGERY REVIEW OF SYSTEMS Review of Systems: Review of Systems Constitutional: Negative. HENT: Negative. Eyes: Negative. Respiratory: Negative. Cardiovascular: Negative. Gastrointestinal: Negative. Genitourinary: Negative. Musculoskeletal: Negative. Skin: Negative. Pain cyst to left labia Neurological: Negative. All other systems reviewed and [...] Skin: General: Skin is warm and dry. Comments: Left labial abscess with mild fluctuance. Induration to 2cm without active drainage. The area is cleansed with Hibiclens and anesthestized with 1% lidocaine 1 ml. She tolerates this well. With a number 11 blade scalpel and a small incision is made with minimal drainage. Psychiatric: Mood and Affect: Mood normal. Behavior: Behavior normal. Vitals and nursing note reviewed. Exam conducted with a skiing instructor present. Vitals: Estimated body mass index is 38.27 kg/m as calculated from the following: Height as of 04/14/24: 5' 6 . Weight as of this encounter: 237 lb 1.9 oz. BP: 120/74 No LMP recorded. Patient has had an ablation. ASSESSMENT & PLAN ICD-10-CM 1. Vaginal cyst N89.8 POCT urinalysis dipstick manually resulted Patient reports notable cyst to left labia with onset yesterday. She is afebrile and otherwise well appearing. She rates her pain as 5/10 . The patient is to continue with Epsom salt soaks and begin antibiotics. She is going to call should she have any worsening symptoms or concerns. Documented by Meche Kirby NP on behalf of: CHIQUI Pavon documented in this encounter [facility] 04-14-2024 History of Presen t illness Narrative Images from the original note were not included. SUBJECTIVE: Daysi Medina is a 43 y.o. female presents with chief complaint of Well adult. Subjective Daysi Medina is a 43 y.o. female and is here for a comprehensive physical exam. The patient reports no problems. Do you take any herbs or supplements that were not prescribed by a doctor? no Are you taking calcium supplements? no Are you taking aspirin daily? No Obesity: Has concerns of weight gain within the last couple of months. Pt states diet is overall ok, she admits she does eat some junk food. She does admit she eats regular size portions. She does exercise at times. Father was a diabetic and hx of hypertension. Also heart issues. Would like to ensure healthy. Insomnia: Has complaints of insomnia. Onset: years ago but has progressively worsened. Father Decembe so sleep issues have worsened.. Has difficulty falling asleep and/or stay asleep. Has been on medication in the past but unaware of which medication. No current tx used. Depression/ Bipolar: Discontinued Rexulti approx 1 year ago as did not feel it was working effectively. Pt states she did notice it was helpful when first starting rx but wasn't as effective as time went on. 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 Arthritis of left hip Primary localized osteoarthritis of left hip Primary localized osteoarthritis of right hip Past Medical History: Past Medical History: Diagnosis Date Anxiety Arthritis Bipolar 2 disorder (CMS/HCC) Depression (CMS/HCC) Osteoporosis (CMS/HCC) 11/2020 Family History: Family History Problem Relation Name Age of Onset Breast cancer Mother Mariya Stoll Cancer Mother Mariya Stoll Hypertension Father Shady Stoll Diabetes Father Shady Stoll Allergies: No Known Allergies Surgical History: Past Surgical History: Procedure Laterality Date CT ANGIOGRAM HEART CORONARY 02/18/2021 CT ANGIOGRAM TAVR 02/18/2021 ENDOMETRIAL ABLATION 01/31/2024 removal of IUD Mirena JOINT REPLACEMENT 01/2021 TOTAL HIP ARTHROPLASTY Left 02/01/2021 with cables for femur fx Dr Ambriz TOTAL HIP ARTHROPLASTY Right 12/05/2022 Dr Ambriz VARICOSE VEIN SURGERY Social History: Social Drivers of Health Tobacco Use: Medium Risk (03/17/2024) Patient History Smoking Tobacco Use: Former Smokeless Tobacco Use: Never Passive Exposure: Not on file Alcohol Use: Alcohol Misuse (11/08/2022) AUDIT-C Frequency of Alcohol Consumption: Monthly or less Average Number of Drinks: 3 or 4 Frequency of Binge Drinking: Less than monthly Financial Resource Strain: Low Risk (11/08/2022) Overall Financial Resource Strain (CARDIA) Difficulty of Paying Living Expenses: Not very hard Food Insecurity: No Food Insecurity (11/08/2022) Hunger Vital Sign Worried About Running Out of Food in the Last Year: Never true Ran Out of Food in the Last Year: Never true Transportation Needs: No Transportation Needs (11/08/2022) PRAPARE - Transportation Lack of Transportation (Medical): No Lack of Transportation (Non-Medical): No Physical Activity: Inactive (11/08/2022) Exercise Vital Sign Days of Exercise per Week: 0 days Minutes of Exercise per Session: 30 min Stress: Stress Concern Present (11/08/2022) [employer] - Occupational Stress Questionnaire Feeling of Stress : To some extent Social Connections: Moderately Integrated (11/08/2022) Social Connection and Isolation Panel [NHANES] Frequency of Communication with Friends and Family: More than three times a week Frequency of Social Gatherings with Friends and Family: More than three times a week Attends Jewish Services: 1 to 4 times per year Active Member of Clubs or Organizations: Yes Attends Club or Organization Meetings: More than 4 times per year Marital Status: Intimate Partner Violence: Not At Risk (11/08/2022) Humiliation, Afraid, Rape, and Kick questionnaire Fear of Current or Ex-Partner: No Emotionally Abused: No Physically Abused: No Sexually Abused: No Depression: Not at risk (2022) PHQ-2 PHQ-2 Score: 0 Housing Stability: Low Risk (11/08/2022) Housing Stability Vital Sign Unable to Pay for Housing in the Last Year: No Number of Places Lived in the Last Year: 1 Unstable Housing in the Last Year: No Health Literacy: Not on file OBJECTIVE: Visit Vitals OB Status Ablation Smoking Status Former Physical Exam Constitutional: Appearance: Normal appearance. She is obese. HENT: Head: Normocephalic and atraumatic. Eyes: Extraocular Movements: Extraocular movements intact. Conjunctiva/sclera: Conjunctivae normal. Pupils: Pupils are equal, round, and reactive to light. Cardiovascular: Rate and Rhythm: Normal rate and regular rhythm. Pulmonary: Effort: Pulmonary effort is normal. Breath sounds: Normal breath sounds. Abdominal: General: Bowel sounds are normal. Palpations: Abdomen is soft. Musculoskeletal: General: Normal range of motion. Skin: General: Skin is warm and dry. Neurological: General: No focal deficit present. Mental Status: She is alert and oriented to person, place, and time. Psychiatric: Mood and Affect: Mood normal. Thought Content: Thought content normal. Judgment: Judgment normal. No results found for this or any previous visit (from the past 4 weeks). ASSESSMENT AND PLAN: Assessment/Plan Diagnoses and all orders for this visit: Primary insomnia Should improve with the above prescribed medications. Call if not improved despite treatment. - CBC and differential; Future - Comprehensive metabolic panel; Future Bipolar II disorder ([facility]) Patient advised to return if symptoms worsen and/or persist despite treatment. - Brexpiprazole (Rexulti) 1 MG tablet; Take 1 mg by mouth Daily - desvenlafaxine (Pristiq) 50 MG 24 hr tablet; Take 1 tablet (50 mg) by mouth Daily Do not crush, chew, or split. - CBC and differential; Future - Comprehensive metabolic panel; Future - Brexpiprazole (Rexulti) 0.5 MG tablet; Take 0.5 mg by mouth Daily - Brexpiprazole (Rexulti) 2 MG tablet; Take 2 mg by mouth Daily - Brexpiprazole (Rexulti) 2 MG tablet; Take 2 mg by mouth Daily Morbid (severe) obesity due to excess calories ([facility]) Labs ordered today, will follow up when results available - CBC and differential; Future - Comprehensive metabolic panel; Future Unilateral primary osteoarthritis, right hip - CBC and differential; Future - Comprehensive metabolic panel; Future Other fatigue Labs ordered today, will follow up when results available - desvenlafaxine (Pristiq) 50 MG 24 hr tablet; Take 1 tablet (50 mg) by mouth Daily Do not crush, chew, or split. - CBC and differential; Future - Comprehensive metabolic panel; Future - TSH; Future Lipid screening - Lipid panel; Future - CBC and differential; Future - Comprehensive metabolic panel; Future Updated Medications: I have reviewed and reconciled the history and medication list with the patient today. No current outpatient medications on file. documented in this encounter [facility] 03-17-2024 History of Presen t illness Narrative Images from the original note were not included. HISTORY OF PRESENT ILLNESS: EST PT Daysi Medina is an 43 y.o. @ female. EST PT: (L) IMAN W/ FEMUR FX CABLES 02/01/21 (~3YRS) - DR AMBRIZ XRAY LT HIP TODAY EPIC 03/17/24 XRAYS 02/11/24 IN [facility] NO BONE SCAN PT NOTES POSTERIOR LATERAL PAIN FOR 2 WEEKS. CAN BE SHARP AND THROBBING. PAIN RADIATES DOWN LATERAL THIGH. DENIES INJURY/ILLNESS. ADMITS LIMPING AND SWELLING. SWELLING B/L LEGS. STANDS ON HER FEET 8-12 HRS PER DAY AT WORK. PAIN WITH WALKING AND STANDING. WAKES AT HS, TENDER TO LAY ON LT SIDE. OCCAS TINGLING IN TOES OF LT FOOT. NO PAIN WHEN SITTING. TAKING TYL ARTHRITIS PREVIOUS (R) IMAN 12/05/22 - DR AMBRIZ ALLERGIES: No Known Allergies HOME MEDICATIONS: Current Outpatient Medications Medication Instructions predniSONE (Deltasone) 20 MG tablet Take 2 tablets (40 mg) by mouth Daily for 5 days, THEN 1 tablet (20 mg) Daily for 5 days. Take with food. PHYSICAL EXAM: Hip Musculoskeletal Exam Gait Gait is normal. Inspection Leg length disparity: no discrepancy Left Erythema: none Ecchymosis: none Edema: none Deformity: none Previous incision: anterolateral Incision: well-healed Palpation Left Left hip palpation is normal. Increased warmth: none Tenderness: present Greater trochanteric region pain: moderate Pubic rami pain: none Lower lumbar region pain: none Range of Motion Left Left hip range of motion is within functional limits. Active ROM: normal. Passive ROM: normal. Strength Left Left hip strength is normal. Extension: 5/5. Flexion: 5/5. Internal rotation: 5/5. External rotation: 5/5. Adduction: 5/5. Abduction: 5/5. Abduction is affected by pain. Neurovascular Left Left hip neurovascular exam is normal. Pulses - PT: normal Posterior tibial: 2+ Special Tests Left Log roll test: negative Special tests additional comments: + pain with mild oberers test. Point tender to greater troch, mild soreness along IT band Hip dislocation precautions maintained. General Constitutional: appears stated age Labored breathing: no Psychiatric: normal mood and affect Neurological: alert and oriented x3 Skin: intact Lymphadenopathy: none Vitals: There is no height or weight on file to calculate BMI. Tobacco Use: Medium Risk (03/17/2024) Patient History Smoking Tobacco Use: Former Smokeless Tobacco Use: Never Passive Exposure: Not on file Alcohol Use: Alcohol Misuse (11/08/2022) AUDIT-C Frequency of Alcohol Consumption: Monthly or less Average Number of Drinks: 3 or 4 Frequency of Binge Drinking: Less than monthly IMAGING: XR hip left 2 or 3 views Imaging Result: AP and lateral of left hip: Acceptable position and alignment of left total hip arthroplasty. There was no evidence of loosening of the acetabular cup or femoral stem. Cerclage wires present, no acute fracture Femoral head was well centered in the acetabular liner without evidence of asymmetric or accelerated wear. There was no gross evidence of fracture and/or dislocation. Impression: Unremarkable left total hip arthroplasty. Procedures Orders Placed This Encounter Procedures XR hip left 2 or 3 views Order Specific Question: Is the patient ? Answer: No Order Specific Question: Reason for exam: Answer: PAIN ASSESSMENT: ICD-10-CM 1. Acute hip pain, left M25.552 XR hip left 2 or 3 views predniSONE (Deltasone) 20 MG tablet 2. Trochanteric bursitis of left hip M70.62 3. It band syndrome, left M76.32 4. History of left hip replacement Z96.642 Assessment & Plan 1. Left hip pain. She reports no specific injury to the area. X-ray today without evidence of complication to prior hip replacement or cerclage wires. Patient is point tender over the greater trochanter concerning for hip bursitis. She also has some mild pain on the distribution of the IT band. She does not endorse any strong radicular symptoms at this time and pain is reproducible to palpation. There is no joint warmth or erythema and painless passive range of motion is noted. The possibility of glute tendinitis was discussed, which may require additional treatment with physical therapy. A prednisone taper will be initiated with the risks and benefits discussed. She is agreeable and will work on IT band massage in the interim. Follow-up The patient will follow up in 2 weeks. Questions answered in laymen terms at the bedside. The diagnosis, home exercise plan and any ongoing restrictions/ recommendations reviewed. If unable to be reached in office, I recommend evaluation at nearest Emergency Room if any symptoms worsened or new symptoms develop for requiring urgent evaluation. documented in this encounter [facility] 02-12-2024 History of Presen t illness Narrative Reason for Appointment: Patient ID: Daysi Medina is a 43 y.o. female who presents for Post-op Visit (Pt present today for post operative visit. Pt had an endometrial ablation/IUD removal on 01/31/2024.) Patient presents today for 1 Week Post Op Follow Up appointment. MEDICATIONS No current outpatient medications ALLERGIES No [...] Medical History: Diagnosis Date Anxiety Arthritis Depression ([facility]) Osteoporosis ([facility]) 11/2020 HISTORY PAST MEDICAL HISTORY SOCIAL HISTORY Past Medical History: Diagnosis Date Anxiety Arthritis Bipolar 2 disorder ([facility]) Depression ([facility]) Osteoporosis ([facility]) 11/2020 Social History Tobacco Use Smoking status: [...] HEART CORONARY 02/18/2021 CT ANGIOGRAM TAVR 02/18/2021 ENDOMETRIAL ABLATION 01/31/2024 removal of IUD Mirena JOINT REPLACEMENT 01/2021 TOTAL HIP ARTHROPLASTY Left [...] Exam Constitutional: Appearance: Normal appearance. She is normal weight. HENT: Head: Normocephalic. Cardiovascular: Rate and Rhythm: Normal rate. Pulses: Normal pulses. Pulmonary: Effort: Pulmonary effort is normal. Breath sounds: Normal breath sounds. Abdominal: Palpations: Abdomen is soft. Musculoskeletal: General: Normal range of motion. Neurological: General: No focal deficit present. Mental Status: She is alert and oriented to person, place, and time. Psychiatric: Mood and Affect: Mood normal. Behavior: Behavior normal. Thought Content: Thought content normal. Judgment: Judgment normal. Vitals and nursing note reviewed. Vitals: Estimated body mass index is 36.01 kg/m as calculated from the following: Height as of 11/26/23: 5' 6 . Weight as of 01/06/24: 223 lb 1.9 oz. BP: No LMP recorded. Patient has had an implant. ASSESSMENT & PLAN ICD-10-CM 1. Postoperative visit Z48.89 2. S/P endometrial ablation Z98.890 Pt present today for a post operative visit. Pt had an endometrial ablation and IUD removal on 01/31/2024. Post Op Follow Up: Patient presents today for a postop follow up after having IUD removal and ablation performed at [facility] with Dr. Islas. Patient is healing well and shows no signs or symptoms of infection. Pathology results was reviewed with the patient in great detail and all restrictions have been lifted. Follow Up: Patient is to return to the office for annual exam unless needed otherwise. Documented by Melinda Ham MA on behalf of: CHIQUI Pavon documented in this encounter [facility] 02-11-2024 History of Presen t illness Narrative HISTORY OF PRESENT ILLNESS: EST PT Daysi Medina is an 43 y.o. @ female. (EST PT W/ DK) HERE FOR ANNUAL CHECK OF (L) IMAN W/ FEMUR FX CABLES 02/01/21 (~3YRS) - DR AMBRIZ XRAYS DONE TODAY, 02/11/24 IN [facility] NO BONE SCAN Doing great. No complaints, Walking unassisted, denies limp. Not taking anything for the pain. Pleased with outcome. Working without restrictions. Pt is pleased with the outcome of surgery. PREVIOUS (R) IMAN 12/05/22 - DR AMBRIZ ALLERGIES: No Known Allergies HOME MEDICATIONS: Current Outpatient Medications Medication Instructions Levonorgestrel (Mirena, 52 MG,) 20 MCG/DAY intrauterine device 1 each, Intrauterine, As needed PHYSICAL EXAM: Hip Musculoskeletal Exam Gait Gait is normal. Inspection Leg length disparity: no discrepancy Right Erythema: none Ecchymosis: none Edema: none Deformity: none Previous incision: anterolateral Incision: well-healed Left Erythema: none Ecchymosis: none Edema: none Deformity: none Previous incision: anterolateral Incision: well-healed Palpation Right Right hip palpation is normal. Increased warmth: none Tenderness: none Left Left hip palpation is normal. Increased warmth: none Tenderness: none Range of Motion Right Right hip range of motion is within functional limits. Active ROM: normal. Passive ROM: normal. Left Left hip range of motion is within functional limits. Active ROM: normal. Passive ROM: normal. Strength Right Right hip strength is normal. Extension: 5/5. Flexion: 5/5. Internal rotation: 5/5. External rotation: 5/5. Adduction: 5/5. Abduction: 5/5. Left Left hip strength is normal. Extension: 5/5. Flexion: 5/5. Internal rotation: 5/5. External rotation: 5/5. Adduction: 5/5. Abduction: 5/5. Neurovascular Right Right hip neurovascular exam is normal. Pulses - PT: normal Posterior tibial: 2+ Left Left hip neurovascular exam is normal. Pulses - PT: normal Posterior tibial: 2+ General Constitutional: appears stated age Labored breathing: no Psychiatric: normal mood and affect Neurological: alert and oriented x3 Skin: intact Lymphadenopathy: none Vitals: There is no height or weight on file to calculate BMI. Tobacco Use: Medium Risk (02/26/2023) Patient History Smoking Tobacco Use: Former Smokeless Tobacco Use: Never Passive Exposure: Not on file Alcohol Use: Alcohol Misuse (11/08/2022) AUDIT-C Frequency of Alcohol Consumption: Monthly or less Average Number of Drinks: 3 or 4 Frequency of Binge Drinking: Less than monthly IMAGING: Procedures No orders of the defined types were placed in this encounter. ASSESSMENT: ICD-10-CM 1. Left hip pain M25.552 2. Right hip pain M25.551 3. History of bilateral hip replacements Z96.643 Assessment & Plan 1. Post-operative status following left total hip arthroplasty. She is here for her annual follow-up, including radiographic evaluation. The x-rays were reviewed at the bedside and demonstrated satisfactory alignment. She reports no concerns and is generally in good health. Her gait remains stable, and she has undergone bilateral hip arthroplasties. A follow-up appointment is recommended in 2 years for bilateral hip x-rays to monitor for polyethylene wear. Precautions to prevent hip dislocation were reiterated. PROCEDURE The patient underwent a left total hip replacement. Questions answered in laymen terms at the bedside. The diagnosis, home exercise plan and any ongoing restrictions/ recommendations reviewed. If unable to be reached in office, I recommend evaluation at nearest Emergency Room if any symptoms worsened or new symptoms develop for requiring urgent evaluation. documented in this encounter [facility] 01-06-2024 History of Presen t illness Narrative Reason for Appointment: Patient ID: Daysi Medina is a 43 y.o. female who presents for Pre-op Visit and Endometrial Biopsy Patient presents today for Pre Op/Endometrial Biopsy appointment. Patient is scheduled to undergo Endometrial Ablation with Radha on 01/31/[address] Islas at [facility]. MEDICATIONS No current outpatient medications ALLERGIES No [...] nursing note reviewed. Exam conducted with a skiing instructor present. Vitals: Estimated body mass index is [...] reviewed, and patient is to proceed to [facility] OR. Follow Up: Patient is to follow up between 1-2 weeks post op to assess proper healing and recovery from procedure. Documented by Heather Valentine LPN on behalf of: Chapin Islas DO documented in this encounter [facility] 01-01-2024 History of Presen t illness [...] Medical History: Diagnosis Date Anxiety Arthritis Depression ([facility]) [place] 11/2020 HISTORY PAST MEDICAL HISTORY SOCIAL HISTORY Past Medical History: Diagnosis Date Anxiety Arthritis Bipolar 2 disorder ([facility]) Depression ([facility]) Osteoporosis ([facility]) 11/2020 Social History Tobacco Use Smoking status: [...] nursing note reviewed. Exam conducted with a skiing instructor present. Vitals: Estimated body mass index is [...] Chapin Islas DO documented in this encounter [facility] 12-09-2023 Evaluation note Diagnosis Onset Date Resolution Contact with and (suspected) exposure to covid-19 noneactive December 08 4:23pm Viral URI with cough noneactive 2023 4:23pm Acute otitis media with effusion of left ear noneactive December 08 4:23pm [facility] Work Phone: 1(750) 183-946710-01-2024 History of Present illness Narrative* Nixon Ambriz DO - 11/26/2023 2:45 PM EDT Images from [...] Diagnosis Date Anxiety Arthritis Bipolar 2 disorder ([facility]) Depression ([facility]) Osteoporosis ([facility]) 11/2020 ALLERGIES: No Known Allergies VITALS: Visit [...] Dr. Ambriz/ra Ambriz D.O. [id number] History of Present illness Narrative* CHIQUI Pavon - 11/26/2023 9:00 AM EDT Reason for Appointment: Patient ID: Daysi Medina is a 43 y.o. female who presents for [facility] Visit Patient presents today for Annual Exam. MEDICATIONS No current outpatient medications ALLERGIES No Known Allergies PROBLEMS Active Ambulatory Problems Diagnosis Date Noted Bipolar 2 disorder ([facility]) 11/07/2022 Osteoarthritis of left hip 11/07/2022 Status post total replacement of right hip 11/07/2022 Insomnia 11/07/2022 Thyroid nodule ([facility]) 11/07/2022 Bipolar affective disorder, currently depressed, moderate ([facility]) 05/18/2020 Class 2 obesity 01/03/2021 Difficulty walking 01/30/2021 Disability of walking 11/08/2022 Loss of taste 01/10/2021 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 11/08/2022 Arthritis of left hip 12/21/2020 Primary localized osteoarthritis of left hip 01/31/2021 Primary localized osteoarthritis of right hip 12/12/2022 Resolved Ambulatory Problems Diagnosis Date Noted No Resolved Ambulatory Problems Past Medical History: Diagnosis Date Anxiety Arthritis Depression ([facility]) Osteoporosis ([facility]) 11/2020 HISTORY PAST MEDICAL HISTORY SOCIAL HISTORY Past Medical History: Diagnosis Date Anxiety Arthritis Bipolar 2 disorder ([facility]) Depression ([facility]) Osteoporosis ([facility]) 11/2020 Social History Tobacco Use Smoking status: [...] nursing note reviewed. Exam conducted with a skiing instructor present. Vitals: Estimated body mass index is [...] behalf of: [facility]I [facility] N[facility]ative* Chief Complaint cough, fever Reason for Visit Contact with and (huston spected) exposure to covid-19 [facility] Work Phone: Evaluation noteNo assessment information available [facility] Work Phone: evaluation note* Diagnosis Onset Date Resolution Status Contact with or exposure to other viral diseases acute Influenza B acute Sunburn of first degree none active [facility] Work Phone: Evaluation note* Diagnosis Primary osteoarthritis of right hip S/P hip replacement, right Breast cancer screening by mammogram Well woman exam with routine gynecological exam Routine gynecological examination Menorrhagia with regular cycle [facility] Diagnosis Primary osteoarthritis of right hip- Primary S/P hip replacement, right [facility] Diagnosis Onset Date Resolution Status Contact with and (suspected) exposure to covid-19 noneactive [facility] Work Phone: Evaluation note* Diagnosis ASCUS with positive high risk HPV cervical [facility] Diagnosis Pre-op examination Menorrhagia with regular cycle Abnormal uterine bleeding (AUB) Pelvic pain in female Unspecified symptom associated with female genital organs [facility] Diagnosis Left hip pain- Primary Pain in joint, pelvic region and thigh History of total hip replacement, left [facility] Diagnosis Postoperative visit S/P endometrial ablation Other postprocedural status [facility] Diagnosis Acute hip pain, left- Primary Trochanteric bursitis of left hip It band syndrome, left History of left hip replacement documented in this encounter [facility]* Diagnosis Primary insomnia- Primary Persistent disorder of initiating or maintaining sleep Bipolar II disorder (CMS/HCC) Other bipolar disorders Morbid (severe) obesity due to excess calories (CMS/HCC) Unilateral primary osteoarthritis, right hip Other fatigue Lipid screening Screening for lipoid disorders documented in this encounter [facility]* Diagnosis Labial abscess- Primary Vaginal cyst Other specified noninflammatory disorder of vagina documented in this encounter [facility] HealthcareEvaluation note* Diagnosis Vaginal aphthous ulcer- Primary Vaginal cyst Other specified noninflammatory disorder of vagina documented in this encounter [facility] Healthcare Summary Purpose Family History Relationship Condition [...] Recorded Date/ Time Advance Directives No June 07, 021 12:19pm Advance Directive Response Recorded Date/ Time Advance Directives No June 07, 021 1:19pm Chief Complaint and Reason for Visit [...] section and content) DATE CREATED AUTHOR 01/29/2021 [facility] DATE CREATED AUTHOR AUTHOR'S ORGANIZ ATION 03/03/2021 [facility]ical Specialist DATE CREATED AUTHOR AUTHOR'S ORGANIZ ATION 01/11/2024 [facility] DATE CREATED AUTHOR AUTHOR'S ORGANIZ ATION 06/05/2024 [facility] Specialists [facility] Care Teams (unrecognized sec tion and content) [...] May 15, 2023 End: May 15, 2023 [employer] Relationship Specialty Start Date End Date Nitesh Hills DO [address] [place] [address] PCP - [employer] 09/25/20 Nitesh Hills DO [address] [place] [address] PCP - General Family Medicine 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 Relationship Specialty Start Date End Date Nitesh Hills DO [address] [place] [address] PCP - [employer] 09/25/20 Nitesh Hills DO [address] [place] [address] PCP - General Family Medicine 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 Relationship Specialty Start Date End Date Nitesh Hills DO [address] [place] [address] PCP - [employer] 09/25/20 Nitesh Hills DO [address] [place] [address] PCP - General Family Medicine 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 Relationship Specialty Start Date End Date Nitesh Hills DO [address] [place] [address] PCP - [employer] 09/25/20 Nitesh Hills DO [address] [place] [address] PCP - General Family Medicine 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 Relationship Specialty Start Date End Date Nitesh Hills DO [address] [place] [address] PCP - [employer] 09/25/20 Nitesh Hills DO [address] [place] [address] PCP - General Family Medicine 07/03/22 Team Status: Inactive Member Role Status Dates [place] DO Primary Care Provider Active Start: December 09, 2023 End: December 09, 2023 Jody Joyner APRN Attending Provider Active Start: December 09, 2023 End: December 09, 2023 [employer] Relationship Specialty Start Date End Date Nitesh Hills DO [address] [place] [address] PCP - [employer] 09/25/20 Nitesh Hills DO [address] [place] [address] PCP - General Family Medicine 07/03/22 Team Status: Inactive Member Role Status Dates Chapin Islas DO Attending Provider Active Start : January 01, 2024 End: January 01, 2024 Team Status: Inactive Member Role Status Dates Chapin Islas DO Attending Provider Active Start : January 06, 2024 End: January 06, 2024 [employer] Relationship Specialty Start Date End Date Nitesh Hills DO [address] [place] [address] PCP - [employer] 09/25/20 Nitesh Hills DO [address] [place] [address] PCP - General Family Medicine 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 Relationship Specialty Start Date End Date Nitesh Hills DO [address] [place] [address] PCP - [employer] 09/25/20 Nitesh Hills DO [address] [place] [address] PCP - General Family Medicine 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 Relationship Specialty Start Date End Date Nitesh Hills DO [address] [place] [address] PCP - [employer] 09/25/20 Nitesh Hills DO [address] [place] [address] PCP - General Family Medicine 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 Relationship Specialty Start Date End Date Nitesh Hills DO [address] [place] [address] PCP - [employer] 09/25/20 Nitesh Hills DO [address] [place] [address] PCP - General Family Medicine 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 Relationship Specialty Start Date End Date Nitesh Hills DO [address] [place] [address] PCP - [employer] 09/25/20 Nitesh Hills DO [address] [place] [address] PCP - General Family Medicine 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 Relationship Specialty Start Date End Date Nitesh Hills DO [address] [place] [address] PCP - [employer] 09/25/20 Nitesh Hills DO [address] [place] [address] PCP - General Family Medicine 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 Pt had an endometrial ablation/IUD removal on 01/31/2024. Reason Comments Pain Reason Comments vaginal cyst FOR RECORDS PERTAINING TO PATIENTS WHO ARE [...] THE PRIMARY CLINICAL RECORDS. [facility] [employer] [facility] provides no warranty or guarantee of the accuracy or completeness of information in this document.
== END 2024-06-08 20:30 | disposition home or self-care (01) ==
LOC: LAB 20:29
PROVIDERS: PCP Family Medicine; Visit Provider Obstetrics & Gynecology
DX: N89.8 Other specified noninflammatory disorders of vagina (principal)
CPT/HCPCS: 87070